=== PATIENT | male | born 1960 | race Caucasian/White ===

== ENCOUNTER 2018-10-07 10:39 | Outpatient (CLI) | payer MEDICAID, SELFPAY ==
[2018-10-07 11:34] LABS: HCT 43.2 % (40.0-50.0); HGB 14.3 g/dL (13.5-17.5); Mean Corp. HGB Concentration 33.1 g/dL (32.0-36.0); Mean Corpuscular Hemoglobin 30.8 pg (27.0-33.0); Mean Corpuscular Volume 92.9 fL (80-95); Mean Platelet Volume 9.2 fL (8.0-11.0); Platelet Count 208 x1000/uL (130-400); RBC 4.65 m/cumm (4.50-6.00); RBC Distribution Width 14.1 % (11.8-14.1); White Blood Cell Count 7.03 k/cumm (4.4-10.8)
[2018-10-07 12:30] LABS: ALT 54 U/L (12-78); AST 28 U/L (15-37); Albumin 3.7 g/dL (3.4-5.0); Alkaline Phosphatase 72 U/L (46-116); Anion Gap 11.3 mmol/L (3-11); BUN 12 mg/dL (7-18); Bilirubin, Total 0.4 mg/dL (0.2-1.0); CO2 24.7 mmol/L (21.0-32.0); CREATININE 0.95 mg/dL (0.70-1.30); Calcium 8.2 mg/dL (8.5-10.1); Chloride 107 mmol/L (98-107); Glucose 107 mg/dL (70-100); Sodium 143 mmol/L (136-145); Total Protein 6.8 g/dL (6.4-8.2); Vitamin B12 217 pg/mL (193-986)
== END 2018-10-07 10:59 ==
PROVIDERS: PCP Family Medicine; Visit Provider Family Medicine
DX: C18.9 Malignant neoplasm of colon, unspecified (principal); I10 Essential (primary) hypertension
CPT/HCPCS: 36415; 80053; 85027; 82607

== ENCOUNTER 2018-10-28 08:03 | Day surgery (SDC) | payer MEDICAID, SELFPAY ==
[2018-10-28 08:42] VITALS: BP 144/83; PULSE 98; RESP 20; TEMP 37; O2SAT 94
[2018-10-28] MEDS: Lactated Ringers 1,000 ML 80 ML IV (08:47)
--- NOTE | 2018-10-28 09:14 | W.PM.DSUDISC ---
Discharge Plan Disposition Patient Disposition: HOME Condition: Good Discharge Details Reason For Visit: Colonoscopy Attending Provider: Mishel Mayorga Primary Care Provider: Jeovany Logan Home Meds and New Rx's Prescriptions: Continued cetirizine 10 mg capsule 10 mg PO DAILY RF: 0 amlodipine 10 MG tablet 10 mg PO DAILY RF: 0 lisinopril 40 MG tablet 40 mg PO DAILY RF: 0 Eliquis 5 MG tablet 5 mg PO BID Qty: 60 RF: 0 triamcinolone acetonide 15 GM cream 1 applic Topical PRN Qty: 1 RF: 3 hydralazine 10 mg tablet 30 mg PO TID Qty: 3 RF: 0 Discharge Instructions Additional Instructions: Findings: Three small polyps were removed. My office will contact you with biopsy results. Follow up: Plan for colonoscopy in 2 years. Do not Eliquis for two more days. Please call if you develop: fevers >101.5 Nausea or Vomiting Abdominal pain that is not transient DAY SURGERY UNIT POST COLONOSCOPY INSTRUCTIONS 1. Because there will be medication in your system for the next 24 hours, you may feel a little sleepy. Your coordination will be affected. Therefore: a. Do not drive or operate dangerous equipment for 24 hours. b. Do not drink alcohol beverages for 24 hours (not even beer). c. Plan to go home and rest for the day. 2. Generally there are no restrictions on your activity after a day or so has gone by, but you may feel a bit fatigued for a few days. 3 After you arrive home you may have a light meal and return to a normal diet as you can tolerate it without feeling sick to your stomach. 4. After surgery, you may feel pain or discomfort. This should be only transient, but if it persists please contact your doctor. 5. If there are any questions regarding the findings of your procedure, please feel free to contact your doctor. 6. If you are unable to contact your doctor with a problem, contact the hospital at [phone]. 7. Continue all your regular medications unless directed otherwise. I understand the above instructions and have no questions. Signature of Patient or Responsible Adult Escort Date/Time Name of Responsible Adult Escort Signature of Nurse Date/Time Activity:: Activity as Tolerated Diet:: As Tolerated Discharge Orders Discharge Orders: Discharge Order (Routine); Ordered 10/28/18 Ordered By: Mishel Mayorga DS: Diagnosis Discharge Diagnosis (1) Colon polyps: Status: Acute
--- NOTE | 2018-10-28 09:44 | BOWEL_PTH ---
PATIENT: Marcin House LOC: [facility] U#:[id number] AGE/SX: 57/M ROOM: RE10/28/[address]: Mishel Mayorga MD : 1960 BED: DIS: 10/28/2018 SPEC #: [id number] RECD: 10/28/18 12:45 STATUS: SU REQ #: [id number] R[place]: 10/28/18 09:[address]: Mishel Mayorga DEPT: Surgical Specimen RECD BY: Maxine Gannon ENTERED: 10/28/18 12:46 SP TYPE: Bowel OTHR DR: Jeovany Logan Tissues: 1 - BIOPSY BOWEL 2 - BIOPSY BOWEL Procedures: GROSS AND MICRO LEVEL 4 Comments: [id number]
[2018-10-28 10:40] VITALS: BP 141/74; PULSE 86; RESP 18; TEMP 36.4; O2SAT 95
--- NOTE | 2018-10-28 11:47 | COLE_ITS ---
DATE OF PROCEDURE: October 28, 2018 PREOPERATIVE DIAGNOSIS: History of colon polyps. POSTOPERATIVE DIAGNOSIS: Colon polyps. PROCEDURE: Colonoscopy with polypectomy and fulguration. SURGEON: Mishel Mayorga M.D. ANESTHESIA: Monitored Anesthesia Care INDICATIONS: This is a 57-year-old man whose colonoscopy last year showed several polyps, including a descending colon polyp with dysplasia. He presents for close follow-up. PROCEDURE: He was placed in the left Elena position. Digital rectal examination revealed no abnormal ities. The scope was advanced to the cecum without difficulty. The ileocecal valve and appendiceal orifice were clearly identified. His prep was excellent. The scope was slowly withdrawn with an dread roximately 1 cm polyp identified in the ascending colon. This was removed with snare polypectomy usi ng cautery and retrieved for pathology. In the transverse colon there was a diminutive polyp that wa s simply cauterized. In the descending colon there was a < 1 cm polyp that was removed with snare po lypectomy with cautery and retrieved for pathology. The patient was also noted to have scattered sig moid diverticulosis. The rectum was normal, including on retroflex view. He tolerated the procedure well and was stable to recovery. He will need a follow-up screening again in two years. cc: Jeovany Logan M.D.
== END 2018-10-28 11:15 | disposition home or self-care (01) ==
PROVIDERS: PCP Family Medicine; Visit Provider Surgery
PROC: 0DJD8ZZ Inspection of Lower Intestinal Tract, Via Natural or Artificial Opening Endoscopic (ICD-10-PCS; CPT 45378; principal; 2018-10-28 09:30)
DX: Z12.11 Encounter for screening for malignant neoplasm of colon (principal); D12.2 Benign neoplasm of ascending colon; K63.5 Polyp of colon; K57.30 Diverticulosis of large intestine without perforation or abscess without bleeding; Z85.038 Personal history of other malignant neoplasm of large intestine; I10 Essential (primary) hypertension; G47.33 Obstructive sleep apnea (adult) (pediatric)
CPT/HCPCS: 45385; 45384; 88305; J2250; J3010

== ENCOUNTER 2019-03-24 20:23 | Inpatient (IN) | payer MEDICAID, SELFPAY ==
[2019-03-24 20:26] VITALS: BP 185/69; PULSE 128; RESP 18; TEMP 39.7; O2SAT 95
[2019-03-24] MEDS: Normal Saline 500 ML IV (20:43)
[2019-03-24 20:57] VITALS: TEMP 39.7
[2019-03-24] MEDS: ACETAMINOPHEN 1,000 MG/100 ML BTL 400 MG IVPB (20:57)
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
[2019-03-24 21:35] LABS: Abs Immature Grans 0.06 k/cumm (0.0-0.09); Absolute Basophil Count 0.01 k/cumm (0.0-0.2); Absolute Eosinophil Count 0.01 k/cumm (0.0-0.7); Absolute Monocyte Count 0.09 k/cumm (0.11-0.7); Absolute Neutrophil Count 8.95 k/cumm (1.2-6.7); Basophils % 0.1; Eosinophils % 0.1; HGB 14.2 g/dL (13.5-17.5); Immature Grans % 0.6 %; Lymphocytes % 7.1; Mean Corpuscular Hemoglobin 30.1 pg (27.0-33.0); Mean Corpuscular Volume 91.1 fL (80-95); Mean Platelet Volume 8.3 fL (8.0-11.0); Monocytes % 0.9; Neutrophils % 91.2; Platelet Count 232 x1000/uL (130-400); RBC 4.72 m/cumm (4.50-6.00); RBC Distribution Width 13.9 % (11.8-14.1); White Blood Cell Count 9.82 k/cumm (4.4-10.8)
--- NOTE | 2019-03-24 21:56 | DI.RAD_ITS ---
EXAM: XR CHEST 2V PA LATERAL INDICATION: fever 105, r/o pneumonia. COMPARISON: CHEST 2 VIEWS PA,LAT from 11/04/2016 TECHNIQUE: 2D digital imaging was performed. FINDINGS: Heart size is within normal limits. The pulmonary vasculature is unremarkable. No focal consolidati ng infiltrates are present. No effusions or pneumothoraces are present. Degenerative changes are se en in the spine. The lungs appear hyperinflated with flattened diaphragms suggesting underlying COPD . IMPRESSION: No acute pulmonary process.
--- NOTE | 2019-03-24 21:56 | DI.RAD_ITS ---
EXAM: XR FOOT RT COMPLETE INDICATION: stepped on glass, febrile, r/o osteo and FB. COMPARISON: No exams were available for comparison TECHNIQUE: 2D digital imaging was performed. FINDINGS: An overlying sock or shoe is seen on the foot and causes artifact limiting the examination. No defin ite radiopaque foreign bodies are seen in the soft tissues. There is generalized soft tissue swellin g of the foot. No acute fracture or dislocation is seen. No radiographic evidence to suggest osteom yelitis are present. There are spurs seen on the calcaneus posteriorly. Degenerative changes are se en in the foot. There does appear to be a mild subluxation at the proximal interphalangeal joint of the right 5th toe. IMPRESSION: 1. Overlying sock or shoe limits evaluation of the soft tissues. 2. No definite radiopaque foreign bodies seen. 3. No radiographic findings to suggest acute osteomyelitis are present. If there is continued concer n, an MRI should be considered for further evaluation. 4. Generalized soft tissue swelling of the foot.
[2019-03-24 21:58] LABS: ALT 51 U/L (16-63); AST 30 U/L (15-37); Albumin 3.6 g/dL (3.4-5.0); Alkaline Phosphatase 64 U/L (46-116); Anion Gap 11.8 mmol/L (3-11); BUN 13 mg/dL (7-18); CO2 25.2 mmol/L (21.0-32.0); CREATININE 1.17 mg/dL (0.70-1.30); Calcium 8.9 mg/dL (8.5-10.1); Chloride 106 mmol/L (98-107); Glucose 99 mg/dL (74-106); NT-proBNP 99 pg/mL (<300); Potassium 3.1 mmol/L (3.5-5.1); Sodium 143 mmol/L (136-145); Total Protein 6.9 g/dL (6.4-8.2)
[2019-03-24 22:01] LABS: Lactate 3.1 mmol/L (0.6-1.4)
[2019-03-24] MEDS: PIPERACILLIN/TAZO 4.5 GM in Normal Saline 100 ML IVPB (22:01)
[2019-03-24] MEDS: VANCOMYCIN 2,000 MG in Normal Saline 500 ML 333.3333 MG IVPB (22:01)
[2019-03-24 22:03] LABS: INR 1.1 (0.9-1.1); PTT Activated 19.4 sec (21.0-31.4); Prothrombin Time 10.6 sec (9.3-11.0)
--- NOTE | 2019-03-24 22:03 | DI.VRAD_ITS ---
PROCEDURE INFORMATION: Exam: XR Chest, 2 Views Exam date and time: 03/24/2019 9:54 PM Age: 58 years old Clinical indication: Fever; Additional info: Fever 105, R/O pneumonia TECHNIQUE: Imaging protocol: XR of the chest Views: 2 views. COMPARISON: CR CHEST 2 VIEWS PA,LAT 11/04/2016 11:45 AM FINDINGS: Lungs: Retrocardiac airspace remains minimally prominent. No consolidation. Pleural space: Unremarkable. No pleural effusion. No pneumothorax. Heart/Mediastinum: Unremarkable. No cardiomegaly. Diaphragm: Flattening of hemidiaphragms. Bones/joints: Degenerative changes. IMPRESSION: 1. No acute findings. 2. Findings suggest the presence of COPD. Dictated and Authenticated by: Axel Sargent MD. Ordering:KIERAN Eagle MD
[2019-03-24 22:06] VITALS: BP 134/47; PULSE 120; RESP 18; TEMP 39.3; O2SAT 90
--- NOTE | 2019-03-24 22:07 | DI.VRAD_ITS ---
PROCEDURE INFORMATION: Exam: XR Right Foot Complete Exam date and time: 03/24/2019 9:55 PM Age: 58 years old Clinical indication: Injury or trauma; Injury history: Stepped on glass, fever 105, R/O osteo and fb; Initial encounter; Laceration; Foot; Right; Foreign body involvement not specified; Additional info: Fever 105, R/O pneumonia TECHNIQUE: Imaging protocol: XR Right foot. Views: 3 or more views. COMPARISON: No relevant prior studies available. FINDINGS: Bones/joints: No fracture. Minimal lateral subluxation of the 3rd distal and 5th middle phalanges. Degenerative changes of the 1st metatarsophalangeal and interphalangeal joints. Soft tissues: No radiopaque or radiolucent foreign body demonstrated. Overlying dressing or slipper limits evaluation of soft tissues. IMPRESSION: 1. No fracture. 2. No definite radiographic findings for the presence of osteomyelitis. Further evaluation could be performed with bone scan and/or MRI. 3. Minimal subluxations as described. 4. Degenerative changes. 5. Limited evaluation for foreign body. Consider re-examination after removal of dressing or slipper. Dictated and Authenticated by: Axel Sargent MD. Ordering:KIERAN Eagle MD
[2019-03-24 22:11] LABS: Creatine Kinase 246 U/L (39-308)
[2019-03-24] MEDS: Normal Saline 1,000 ML 1000 ML IV (22:29)
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
[2019-03-24 22:41] LABS: Magnesium 1.5 mg/dL (1.8-2.4)
[2019-03-24] MEDS: POTASSIUM CHLORIDE 20 MEQ/100 ML BAG 50 MEQ IVPB (22:53)
--- NOTE | 2019-03-24 22:54 | DI.RAD_ITS ---
EXAM: XR FOOT RT COMPLETE INDICATION: r/o foreign body. COMPARISON: XR FOOT RT COMPLETE from 03/24/2019 TECHNIQUE: 2D digital imaging was performed. FINDINGS: The examination was repeated following removal of the patient's sock or slipper. No radiopaque forei gn bodies are seen in the soft tissues. There is generalized soft tissue swelling again noted of the foot. No radiographic findings to suggest acute osteomyelitis are present. IMPRESSION: No foreign body is seen in the soft tissue.
[2019-03-24] MEDS: Potassium Chloride 20 MEQ TABCR 40 MEQ PO (22:55)
--- NOTE | 2019-03-24 23:02 | DI.VRAD_ITS ---
PROCEDURE INFORMATION: Exam: XR Right Foot Complete Exam date and time: 03/24/2019 10:29 PM Age: 58 years old Clinical indication: Injury or trauma; Injury history: Stepped on glass a few weeks ago; Initial encounter; Laceration; Foot; Right; Foreign body involvement not specified; Additional info: Fever 105, R/O pneumonia TECHNIQUE: Imaging protocol: XR Right foot. Views: 3 or more views. COMPARISON: CR XR FOOT RT COMPLETE 03/24/2019 9:48 PM FINDINGS: Bones/joints: Unchanged. Soft tissues: Study repeated after removing slipper or dressing. There is improved demonstration of soft tissues. Soft tissue swelling. No radiopaque or radiolucent foreign body. IMPRESSION: 1. Soft tissue swelling. 2. No radiopaque or radiolucent foreign body. Dictated and Authenticated by: Axel Sargent MD. Ordering:KIERAN Eagle MD
[2019-03-24 23:43] VITALS: BP 159/71; PULSE 111; RESP 20; TEMP 38.4; O2SAT 94
[2019-03-25] VITALS (10 sets, daily range): BP systolic 90–132; BP diastolic 52–68; PULSE 80–98; RESP 17–18; TEMP 37–38.7; O2SAT 95–99
[2019-03-25 00:18] LABS: Clarity Clear (Clear)
[2019-03-25 00:19] LABS: Bilirubin Negative (Negative); Blood Negative (Negative); Glucose Negative (Negative); Ketones Negative (Negative); Leukocyte Esterase Negative (Negative); Nitrite Negative (Negative); Urobilinogen 0.2 EU/dL (Up TO 0.2); pH 5.5 (5-8)
[2019-03-25] MEDS: POTASSIUM CHLORIDE/0.9% NACL 1,000 ML 100 MEQ IV ×3 (00:34→21:57)
[2019-03-25] MEDS: MAGNESIUM SULFATE 2 GM/50 ML BAG IVPB (00:49)
[2019-03-25] MEDS: Normal Saline Flush 10 ML SYR IVP ×3 (00:50→21:19)
[2019-03-25] MEDS: Acetaminophen 500 MG TAB 1000 MG PO ×4 (03:24→20:17)
[2019-03-25] MEDS: Ondansetron 4 MG/2 ML VIAL IVP (03:51)
[2019-03-25 07:33] LABS: HCT 39.7 % (40.0-50.0); HGB 12.9 g/dL (13.5-17.5); Mean Corp. HGB Concentration 32.5 g/dL (32.0-36.0); Mean Corpuscular Hemoglobin 29.9 pg (27.0-33.0); Mean Corpuscular Volume 92.1 fL (80-95); Mean Platelet Volume 8.9 fL (8.0-11.0); Platelet Count 238 x1000/uL (130-400); RBC 4.31 m/cumm (4.50-6.00); RBC Distribution Width 14.3 % (11.8-14.1)
[2019-03-25 07:38] LABS: Anion Gap 11.4 mmol/L (3-11); BUN 16 mg/dL (7-18); CO2 23.6 mmol/L (21.0-32.0); CREATININE 1.47 mg/dL (0.70-1.30); Calcium 8.3 mg/dL (8.5-10.1); Chloride 107 mmol/L (98-107); Estimated GFR 49.03 (mL/min/1.73m2); Glucose 143 mg/dL (74-106); Sodium 142 mmol/L (136-145)
--- NOTE | 2019-03-25 08:06 | PHARADMIT ---
Addendum entered by Hattie Balderas 04/03/19 17:52: day 07/26 for abx Addendum entered by Hattie Balderas 04/03/19 17:48: Pharmacy Note Subjective day07/28 abx... from first negative BC Objective BP-168/86 other VS okay no labs Assessment no med changes PCN G and clinda continue Plan plan is to swing pt tomorrow Addendum entered by Radha Peña 04/01/19 13:23: Pharmacy Note Subjective pt with infection and lymphedema Objective BC (03/30)no growth, CRCL 85ML/MIN, mariam wraps for lymphedema Assessment Md asked for nursing to get an accurate home med list due to decrepencies in pt recall and [email or web address] records Plan Continue Pen G & Clindamycin for full 10 days. notes to watch renal function Addendum entered by Willard Littlejohn III 03/31/19 16:10: Pharmacy Note Subjective debrided foot wound today. Continue Pen G & Clindamycin for full 110 days.. Objective BP-152/74 Labs-WNL BG-119 Procal-1.9 CRP- 6.40 Assessment Apixaban continues Plan notes to watch renal function. Addendum entered by Willard Littlejohn III 03/30/19 15:20: Pharmacy Note Subjective MD notes that sepsis has resolved but the patient will require the complete 10 days course of IV ABX (PCN & Clindamycin). Lymphadema requiring leg wraps. Objective BP-172/95 Lytes,H&H,WBC, Plts-OK SCr-0.91,CRP-5.16 Assessment Norvasc dc'd (?adding to leg edema) Dyazide & Corg added to Lisinopril. Plan Follow SCr, CRP and Procalcitonin Original Note: Admission Pharmacy Clinical Review SEPSIS Code Status Full Code Current Weight Wgt-152.4 kg Renally Cleared and Narrow Therapeutic Index Meds CrCl~55 mL/min Meds-OK QTc Value / Action Taken NONE CURRENT BP Control, Fever BP-90/52 Electrolytes reviewed Na-142 K+4.0 Mag-1.5 DVT Prophylaxis Eliquis Opiate Usage / Scheduled Bowel Regimen Ordered No No Plt/SCr for Heparin / Enoxaparin Plts- 238 SCr-1.417 INR for Warfarin inr-1.1 H/H stable, WBC/Bands H&H- 12.9/39.7 WBC-25.00 Antibiotic appropriateness Zosyn & Vancomycin Cultures and Sensitivities Flu-neg, Blood_ Gram(+)Cocci Urine-Pending Surgical ABX d/c within 24 hr na DM control / Insulin Dosing BG-143 Heart Failure (Check EF%) (MARIAM's, B-Block, Diuretics) None (not ordered yet) IV to PO Switch No Home Meds Reviewed Yes Home Meds Not Ordered Norvasc, Hydralazine, Lisinopril, Citirizine, Imodium, Miralax, TAC crm Comments
[2019-03-25] MEDS: Apixaban 5 MG TAB PO ×2 (09:19→20:15)
[2019-03-25] MEDS: Lactated Ringers 1,000 ML 1000 ML IV (09:30)
[2019-03-25] MEDS: Omnipaque 350 MG/ML 100 ML BTL IJ (10:08)
--- NOTE | 2019-03-25 10:15 | DI.CT_ITS ---
EXAM: CT LOWER EXTREMITY RT W CLINICAL HISTORY: bacteremia, pain, necrotizing fasciitis? TECHNIQUE: CT scan of the right lower extremity was performed following the uneventful administratio n of 100 mL of Omnipaque 350 intravenously. COMPARISON: XR FOOT RT COMPLETE from 03/24/2019 FINDINGS: No acute fracture or dislocation is seen. No findings to suggest acute osteomyelitis are present. T here are degenerative changes seen in the foot. Calcaneal spurs are present. There is diffuse subcutaneous edema throughout the leg and foot. No focal fluid collection is seen t o suggest an abscess. There is no air seen within the soft tissues. There is skin thickening diffu sely throughout the lower leg and foot. Arterial structures are grossly unremarkable. There is a small knee joint effusion. IMPRESSION: 1. Findings most suspicious for diffuse cellulitis. No evidence of abscess. No free air.
--- NOTE | 2019-03-25 10:43 | W.PM.PROGNOT ---
Date of Service Date of service: 03/25/19 Time of Service: 08:44 Assessment and Plan Assessment and plan (1) Fever: Status: Acute Assessment and plan: Associated with gram-positive bacteremia, consistent with early sepsis with low normal blood pressures, elevated white count, elevated lactate, and renal insufficiency. Despite his vital signs and lab findings, patient is clearly clinically improved. Staph and strep still major concerns so continue on broad-spectrum antibiotics until we get a full culture. The foot ulcer seems to be the most likely source, with possible retained glass. However, there does not appear to be a local cellulitis. Given this and the severity of his overall illness, concerned for necrotizing fasciitis and have ordered a CT lower extremity. I ordered another liter of LR to hydrate prior to exam. Endocarditis must be considered, but the murmur was barely audible to my exam. Urinalysis, chest x-ray, and flu swabs not consistent with sources of infection. (2) Hypertension: Status: Chronic Assessment and plan: Holding outpatient antihypertensives while blood pressures low. (3) Atrial fibrillation: Status: None Assessment and plan: Current exam consistent with normal sinus. Rate is okay. He is on apixaban, which will also cover DVT prophylaxis. (4) Lymphedema: Status: None Assessment and plan: His lower extremity lymphedema is not significantly different than his chronic picture. (5) disposition: Status: Acute Assessment and plan: Disposition pending response to therapy and cultures for bacteremia. I still think he stable for the floor at this point. If necrotizing fasciitis found, he may need transfer for definitive surgical treatment. Subjective Subjective Patient reports: denies nausea and vomiting Interval history since last seen: 24 hr: Called re: 06/16 blood cultures positive for GPC Marcin states he feels much better today than yesterday. He has a little appetite and is eating and drinking. Urine dark but no pain. He feels hot and chilled at times. He no longer has that diffuse pain in his pelvis down both legs, but some pain in the right leg. no chest pain or palpitations. Exam Narrative Exam Narrative: GEN: Alert and oriented, sitting up in chair, nontoxic speaking comfortably in full sentences HEENT conjunctive are clear, moist mucous membranes, neck supple with no masses or lymphadenopathy; lungs clear to auscultation bilaterally with normal effort heart tachy and regular, 1/6 sys murmur LLSB; abdomen soft and NT, active bowel sounds; extremities 3+ lymphedema (chronic), 2 cm ulcer/wound overlying right MTP 1, very slightly tender but no fluctuance or discharge or even significant surrounding redness. He is tender to palpation of the right calf, but not up the upper leg or in the left calf. He is not tender other than right over the wound in the right foot. Objective Objective Clinical Data: Abnormal lab results 03/24/19 03/24/19 03/24/19 Range/Units 21:15 21:19 21:19 WBC (4.4-10.8) k/cumm RBC (4.50-6.00) m/cumm Hgb (13.5-17.5) g/dL Hct (40.0-50.0) % RDW (11.8-14.1) % Absolute Neutrophils (1.2-6.7) k/cumm Absolute Lymphocytes (1.2-3.4) k/cumm Absolute Monocytes (0.11-0.7) k/cumm APTT (21.0-31.4) sec Potassium 3.1 L (3.5-5.1) mmol/L Anion Gap 11.8 H (3-11) mmol/L Creatinine (0.70-1.30) mg/dL Glucose (74-106) mg/dL Lactate 3.1 H* (0.6-1.4) mmol/L Calcium (8.5-10.1) mg/dL Magnesium 1.5 L (1.8-2.4) mg/dL 03/24/19 03/24/19 03/25/19 Range/Units 21:19 21:19 06:55 WBC (4.4-10.8) k/cumm RBC (4.50-6.00) m/cumm Hgb (13.5-17.5) g/dL Hct (40.0-50.0) % RDW (11.8-14.1) % Absolute Neutrophils 8.95 H (1.2-6.7) k/cumm Absolute Lymphocytes 0.70 L (1.2-3.4) k/cumm Absolute Monocytes 0.09 L (0.11-0.7) k/cumm APTT 19.4 L (21.0-31.4) sec Potassium (3.5-5.1) mmol/L Anion Gap 11.4 H (3-11) mmol/L Creatinine 1.47 H (0.70-1.30) mg/dL Glucose 143 H (74-106) mg/dL Lactate (0.6-1.4) mmol/L Calcium 8.3 L (8.5-10.1) mg/dL Magnesium (1.8-2.4) mg/dL 03/25/19 Range/Units 06:55 WBC 25.00 H D (4.4-10.8) k/cumm RBC 4.31 L (4.50-6.00) m/cumm Hgb 12.9 L (13.5-17.5) g/dL Hct 39.7 L (40.0-50.0) % RDW 14.3 H (11.8-14.1) % Absolute Neutrophils (1.2-6.7) k/cumm Absolute Lymphocytes (1.2-3.4) k/cumm Absolute Monocytes (0.11-0.7) k/cumm APTT (21.0-31.4) sec Potassium (3.5-5.1) mmol/L Anion Gap (3-11) mmol/L Creatinine (0.70-1.30) mg/dL Glucose (74-106) mg/dL Lactate (0.6-1.4) mmol/L Calcium (8.5-10.1) mg/dL Magnesium (1.8-2.4) mg/dL Vital Signs Temperature 37.2 C 03/25/19 09:20 Temperature Source Tympanic 03/25/19 08:03 Pulse 92 H 03/25/19 08:03 Respiratory Rate 18 03/25/19 08:03 Respiratory Effort Non-Labored 03/25/19 03:55 Respiratory Depth Normal 03/25/19 03:55 Respiratory Pattern Normal 03/25/19 03:55 Blood Pressure 90/52 L 03/25/19 08:03 Pulse Oximetry 96 03/25/19 08:03 Oxygen Delivery Method Room Air 03/25/19 08:03 Oxygen Flow Rate 0 03/25/19 08:03 Pain Level 4 03/25/19 09:20 Intake & Output 01/01/0103/24/19 03/25/19 11:59 23:59 11:59 Intake Total 600 / 600 1850 / 1850 Output Total 300 / 300 500 / 500 Balance 300 / 300 1350 / 1350 Weight 152.4 kg Intake: IV 600 / 600 1850 / 1850 Output: Urine 300 / 300 500 / 500 Other: Urine Color Yellow Light Christiana Urine Appearance Clear Clear Urine Odor Normal Voiding Methods Urinal Urinal Laboratory Results WBC 25.00 k/cumm (4.4-10.8) H D 03/25/19 06:55 RBC 4.31 m/cumm (4.50-6.00) L 03/25/19 06:55 Hgb 12.9 g/dL (13.5-17.5) L 03/25/19 06:55 Hct 39.7 % (40.0-50.0) L 03/25/19 06:55 MCV 92.1 fL (80-95) 03/25/19 06:55 MCH 29.9 pg (27.0-33.0) 03/25/19 06:55 MCHC 32.5 g/dL (32.0-36.0) 03/25/19 06:55 RDW 14.3 % (11.8-14.1) H 03/25/19 06:55 Plt Count 238 x1000/uL (130-400) 03/25/19 06:55 MPV 8.9 fL (8.0-11.0) 03/25/19 06:55 Immature Gran % 0.6 % 03/24/19 21:19 Neutrophils % 91.2 03/24/19 21:19 Lymphocytes % 7.1 03/24/19 21:19 Monocytes % 0.9 03/24/19 21:19 Eosinophils % 0.1 03/24/19 21:19 Basophils % 0.1 03/24/19 21:19 Absolute Neutrophils 8.95 k/cumm (1.2-6.7) H 03/24/19 21:19 Absolute Lymphocytes 0.70 k/cumm (1.2-3.4) L 03/24/19 21:19 Absolute Monocytes 0.09 k/cumm (0.11-0.7) L 03/24/19 21:19 Absolute Eosinophils 0.01 k/cumm (0.0-0.7) 03/24/19 21:19 Absolute Basophils 0.01 k/cumm (0.0-0.2) 03/24/19 21:19 PT 10.6 sec (9.3-11.0) 03/24/19 21:19 INR 1.1 (0.9-1.1) 03/24/19 21:19 APTT 19.4 sec (21.0-31.4) L 03/24/19 21:19 Sodium 142 mmol/L (136-145) 03/25/19 06:55 Potassium 4.0 mmol/L (3.5-5.1) D 03/25/19 06:55 Chloride 107 mmol/L (98-107) 03/25/19 06:55 Carbon Dioxide 23.6 mmol/L (21.0-32.0) 03/25/19 06:55 Anion Gap 11.4 mmol/L (3-11) H 03/25/19 06:55 BUN 16 mg/dL (7-18) 03/25/19 06:55 Creatinine 1.47 mg/dL (0.70-1.30) H 03/25/19 06:55 Estimated GFR/1.73 m2 49.03 (mL/min/1.73m2) 03/25/19 06:55 Glucose 143 mg/dL (74-106) H 03/25/19 06:55 Lactate 3.1 mmol/L (0.6-1.4) H* 03/24/19 21:19 Calcium 8.3 mg/dL (8.5-10.1) L 03/25/19 06:55 Magnesium 1.5 mg/dL (1.8-2.4) L 03/24/19 21:15 Total Bilirubin 1.0 mg/dL (0.2-1.0) 03/24/19 21:19 AST 30 U/L (15-37) 03/24/19 21:19 ALT 51 U/L (16-63) 03/24/19 21:19 Alkaline Phosphatase 64 U/L (46-116) 03/24/19 21:19 Creatine Kinase 246 U/L (39-308) 03/24/19 21:19 NT-Pro-B Natriuret Pep 99 pg/mL (<300) 03/24/19 21:19 Total Protein 6.9 g/dL (6.4-8.2) 03/24/19 21: Albumin 3.6 g/dL (3.4-5.0) 03/24/19 21:19 Urine Color Yellow (Yellow) 03/24/19 23:25 Urine Clarity Clear (Clear) 03/24/19 23:25 Urine pH 5.5 (5-8) 03/24/19 23:25 Ur Specific [place] 1.010 (1.005-1.025) 03/24/19 23:25 Urine Protein Negative mg/dL (Negative) 03/24/19 23:25 Urine Ketones Negative mg/dL (Negative) 03/24/19 23:25 Urine Blood Negative (Negative) 03/24/19 23: Urine Nitrite Negative (Negative) 03/24/19 23:25 Urine Bilirubin Negative (Negative) 03/24/19 23: Urine Urobilinogen 0.2 EU/dL (Up TO 0.2) 03/24/19 23:25 Ur Leukocyte Esterase Negative (Negative) 03/24/19 23:25 Urine Glucose Negative mg/dL (Negative) 03/24/19 23:25 Specimen Type Cancelled 03/24/19 22:07 Vancomycin Trough Cancelled 03/25/19 06:55 Influenza Type A RNA Cancelled 03/24/19 22:07 Influenza Type B RNA Cancelled 03/24/19 22:07 RSV RNA Qual (PCR) Cancelled 03/24/19 22:07
[2019-03-25] MEDS: PIPERACILLIN/TAZO 4.5 GM in Normal Saline 100 ML IVPB ×3 (10:59→21:19)
--- NOTE | 2019-03-25 11:12 | DI.VRAD_ITS ---
PROCEDURE INFORMATION: Exam: CT Right Lower Extremity With Contrast Exam date and time: 03/25/2019 9:21 AM Age: 58 years old Clinical indication: Other: Bactermia, pain, necrotizing fascitis? ; Patient HX: Wound on bottom on plantar surface, lateral side of right foot. Stepped on glass. Tender to palpate calf TECHNIQUE: Imaging protocol: CT of the Right lower extremity with intravenous contrast was performed. Radiation optimization: All CT scans at this facility use at least one of these dose optimization techniques: automated exposure control; mA and/or kV adjustment per patient size (includes targeted exams where dose is matched to clinical indication); or iterative reconstruction. Contrast material: OMNIPAQUE 350; Contrast volume: 100 ml; Contrast route: IV; COMPARISON: CR XR FOOT RT COMPLETE 03/24/2019 10:45 PM FINDINGS: Bones/joints: No acute fracture. No dislocation. Degenerative changes of the hindfoot. Small posterior and plantar calcaneal spurs. Soft tissues: There is diffuse subcutaneous edema and fluid from the leg through forefoot. No soft tissue air. No definite fluid collection. No radiodense foreign body. There is no significant muscle edema or deep fascial fluid. There is focal subcutaneous and skin thickening at the plantar aspect of the forefoot laterally.Small suprapatellar joint effusion. Vasculature: The visualized arteries are patent. IMPRESSION: Diffuse subcutaneous edema, fluid and skin thickening from the leg through forefoot which is concerning for clinical cellulitis. No soft tissue air. Dictated and Authenticated by: Anna Lovett MD. Ordering:MINDY Thayer MD
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
[2019-03-26] VITALS (7 sets, daily range): BP systolic 102–155; BP diastolic 50–72; PULSE 78–90; RESP 16–20; TEMP 37–38.1; O2SAT 94–96
[2019-03-26] MEDS: Acetaminophen 500 MG TAB 1000 MG PO ×3 (02:23→16:19)
[2019-03-26] MEDS: PIPERACILLIN/TAZO 4.5 GM in Normal Saline 100 ML IVPB (03:58)
[2019-03-26 07:14] LABS: HCT 36.7 % (40.0-50.0); HGB 11.8 g/dL (13.5-17.5); Mean Corp. HGB Concentration 32.2 g/dL (32.0-36.0); Mean Corpuscular Hemoglobin 30.1 pg (27.0-33.0); Mean Corpuscular Volume 93.6 fL (80-95); Mean Platelet Volume 9.1 fL (8.0-11.0); Platelet Count 193 x1000/uL (130-400); RBC 3.92 m/cumm (4.50-6.00); RBC Distribution Width 14.9 % (11.8-14.1); White Blood Cell Count 17.07 k/cumm (4.4-10.8)
[2019-03-26 07:22] LABS: Anion Gap 9.6 mmol/L (3-11); BUN 11 mg/dL (7-18); CO2 24.4 mmol/L (21.0-32.0); CREATININE 1.08 mg/dL (0.70-1.30); Calcium 7.9 mg/dL (8.5-10.1); Chloride 108 mmol/L (98-107); Glucose 124 mg/dL (74-106); Magnesium 1.8 mg/dL (1.8-2.4); Potassium 3.8 mmol/L (3.5-5.1); Sodium 142 mmol/L (136-145)
[2019-03-26 07:44] LABS: Absolute Lymphocyte Count 1.19 k/cumm (1.2-3.4); Absolute Monocyte Count 0.17 k/cumm (0.11-0.7); Absolute Neutrophil Count 15.36 k/cumm (1.2-6.7); Atypical Lymphocytes % 2; Diff Comment Manual Differential
[2019-03-26 07:45] LABS: RBC Morphology Normal
--- NOTE | 2019-03-26 08:25 | PDOC.CMPRO ---
Care Management Progress Note S/O: Marcin was sitting up in his chair when CM met with him. He was pleasant in interaction and reported feeling much improved. He shared positive feedback about his care and stay thus far. He is interested in completing a Financial Asst Packet, though reports no previous co-pays with his [facility] coverage. CM continues to follow. A: 58 year old male admitted to [facility] 03/24/19 for Sepsis P: Marcin will return home when ready per MD. He will be evaluated for further needs prior to discharge. CM will continue to follow and support discharge planning considerations.
[2019-03-26] MEDS: Apixaban 5 MG TAB PO ×2 (10:02→19:52)
[2019-03-26] MEDS: POTASSIUM CHLORIDE/0.9% NACL 1,000 ML 100 MEQ IV ×2 (10:02→19:53)
[2019-03-26] MEDS: Lisinopril 20 MG TAB 40 MG PO (10:03)
[2019-03-26] MEDS: amLODIPine 10 MG TAB PO (10:03)
[2019-03-26 10:31] LABS: Vancomycin, Trough 10.3 ug/mL (10.0-20.0)
[2019-03-26] MEDS: Penicillin G POT. 3,000,000 UNITS in Normal Saline 50 ML 100 UNITS IVPB ×4 (10:38→22:08)
--- NOTE | 2019-03-26 11:23 | W.PM.PROGNOT ---
Date of Service Date of service: 03/26/19 Time of Service: 11:23 Assessment and Plan Assessment and plan (1) Sepsis due to group B Streptococcus with acute organ dysfunction: Status: Acute Assessment and plan: Culture growing GBS. I have stopped the vancomycin and Zosyn in favor of penicillin G IV at high doses. Fever curve, labs, and clinically improving. As above CT not consistent with necrotizing fasciitis, and does not demonstrate a radiolucent foreign body. I no longer hear him any murmur, so I am less concerned with endocarditis. (2) Hypertension: Status: Chronic Assessment and plan: We have been holding outpatient antihypertensives while blood pressures low. Systolic 155 this morning, outpatient meds restarted. Follow creatinine and potassium back on lisinopril. (3) Atrial fibrillation: Status: None Assessment and plan: Current exam consistent with normal sinus. Rate is okay. He is on apixaban, which will also cover DVT prophylaxis. (4) Lymphedema: Status: None Assessment and plan: His lower extremity lymphedema is not significantly different than his chronic picture. Get tubigrips. (5) Acute kidney injury: Status: Acute Assessment and plan: Present on admission related to GBS sepsis as above, prerenal due to hypovolemia. Improved with hydration. Monitor GFR after restarting MARIAM inhibitor today. (6) Diarrhea: Status: Acute Assessment and plan: This is a chronic issue. Will give Imodium as needed. I did write for a probiotic as well. He would like to get tested for pancreatic insufficiency, which we can do as an outpatient. (7) disposition: Status: Acute Assessment and plan: Stable on the medical floor. I would like to see more continued improvement over the next day at least before considering discharge on oral antibiotics Subjective Subjective Patient reports: no new complaints, feels better, tolerating a regular diet and bowel movement; denies blood in stool, nausea, vomiting and shortness of breath Interval history since last seen: 24hr: Culture reading GBS CT RLE w/contrast c/w cellulitis, not c/w necrotizing fasciitis Marcin feels better. Feels less hot. Minimal pain in leg. He would like compression on the leg like he wears at home (tubigrips). He is concerned for loose stools several times a day but this is chronic, takes immodium at home. Exam Narrative Exam Narrative: GEN: Alert and oriented, sitting up in chair, nontoxic speaking comfortably in full sentences HEENT conjunctive are clear, moist mucous membranes, no icterus; lungs: clear to auscultation bilaterally with normal effort heart: RRR,no murmur audible today; abdomen soft and NT, active bowel sounds; extremities 3+ lymphedema (chronic), 2 cm ulcer/wound overlying right MTP 1, very slightly tender but no fluctuance or discharge or even significant surrounding redness. He is mildly tender to palpation of the right calf, but not up the upper leg or in the left calf. poorly defined redness to superior calf Objective Objective Clinical Data: Abnormal lab results 03/26/19 03/26/19 Range/Units 06:20 06:20 WBC 17.07 H D (4.4-10.8) k/cumm RBC 3.92 L (4.50-6.00) m/cumm Hgb 11.8 L (13.5-17.5) g/dL Hct 36.7 L (40.0-50.0) % RDW 14.9 H (11.8-14.1) % Absolute Neutrophils 15.36 H (1.2-6.7) k/cumm Absolute Lymphocytes 1.19 L (1.2-3.4) k/cumm Chloride 108 H (98-107) mmol/L Glucose 124 H (74-106) mg/dL Calcium 7.9 L (8.5-10.1) mg/dL Vital Signs Temperature 38.1 C H 03/26/19 11:03 Temperature Source Tympanic 03/26/19 11:03 Pulse 80 03/26/19 07:50 Pulse Rhythm Regular 03/26/19 04:00 Respiratory Rate 16 03/26/19 07:50 Respiratory Effort Non-Labored 03/26/19 04:00 Respiratory Depth Normal 03/26/19 04:00 Respiratory Pattern Normal 03/26/19 04:00 Blood Pressure 102/52 L 03/26/19 11:03 Pulse Oximetry 95 03/26/19 07:50 Oxygen Delivery Method Room Air 03/26/19 07:50 Oxygen Flow Rate 0 03/26/19 07:50 Pain Level 4 03/26/19 11:03 Intake & Output 03/25/19 03/25/19 03/26/19 11:59 23:59 11:59 Intake Total 3850 / 5566.667 1716.667 / 5566.667 816.667 / 816.667 Output Total 1150 / 1150 Balance 2700 / 4416.667 1716.667 / 4416.667 816.667 / 816.667 Intake: IV 3850 / 5466.667 1616.667 / 5466.667 816.667 / 816.667 Oral 100 / 100 Output: Urine 1150 / 1150 Other: Urine Color Light Christiana Pale Yellow Yellow Urine Appearance Clear Clear Clear Urine Odor Strong None None Comment patient has been up to the toilet independantly , has reported voiding several times this shift Voiding Methods Urinal Toilet Toilet Laboratory Results WBC 17.07 k/cumm (4.4-10.8) H D 03/26/19 06:20 RBC 3.92 m/cumm (4.50-6.00) L 03/26/19 06:20 Hgb 11.8 g/dL (13.5-17.5) L 03/26/19 06:20 Hct 36.7 % (40.0-50.0) L 03/26/19 06:20 MCV 93.6 fL (80-95) 03/26/19 06:20 MCH 30.1 pg (27.0-33.0) 03/26/19 06:20 MCHC 32.2 g/dL (32.0-36.0) 03/26/19 06:20 RDW 14.9 % (11.8-14.1) H 03/26/19 06:20 Plt Count 193 x1000/uL (130-400) 03/26/19 06:20 MPV 9.1 fL (8.0-11.0) 03/26/19 06:20 Immature Gran % See Differential 03/26/19 06:20 Neutrophils % 57.0 03/26/19 06:20 Band Neutrophils % 33.0 % 03/26/19 06:20 Lymphocytes % 5.0 03/26/19 06:20 Atypical Lymphs % 2 03/26/19 06:20 Monocytes % 1.0 03/26/19 06:20 Eosinophils % 0.0 03/26/19 06:20 Basophils % 0.0 03/26/19 06:20 Metamyelocytes % 2.0 % 03/26/19 06:20 Absolute Neutrophils 15.36 k/cumm (1.2-6.7) H 03/26/19 06:20 Absolute Lymphocytes 1.19 k/cumm (1.2-3.4) L 03/26/19 06:20 Absolute Monocytes 0.17 k/cumm (0.11-0.7) 03/26/19 06:20 Absolute Eosinophils 0.00 k/cumm (0.0-0.7) 03/26/19 06:20 Absolute Basophils 0.00 k/cumm (0.0-0.2) 03/26/19 06:20 Differential Comment Manual differential 03/26/19 06:20 RBC Morphology Normal 03/26/19 06:20 PT 10.6 sec (9.3-11.0) 03/24/19 21:19 INR 1.1 (0.9-1.1) 03/24/19 21:19 APTT 19.4 sec (21.0-31.4) L 03/24/19 21:19 Sodium 142 mmol/L (136-145) 03/26/19 06:20 Potassium 3.8 mmol/L (3.5-5.1) 03/26/19 06:20 Chloride 108 mmol/L (98-107) H 03/26/19 06:20 Carbon Dioxide 24.4 mmol/L (21.0-32.0) 03/26/19 06:20 Anion Gap 9.6 mmol/L (3-11) 03/26/19 06:20 BUN 11 mg/dL (7-18) 03/26/19 06:20 Creatinine 1.08 mg/dL (0.70-1.30) 03/26/19 06:20 Estimated GFR/1.73 m2 >= 60.00 (mL/min/1.73m2) 03/26/19 06:20 Glucose 124 mg/dL (74-106) H 03/26/19 06:20 Lactate 3.1 mmol/L (0.6-1.4) H* 03/24/19 21:19 Calcium 7.9 mg/dL (8.5-10.1) L 03/26/19 06:20 Magnesium 1.8 mg/dL (1.8-2.4) 03/26/19 06:20 Total Bilirubin 1.0 mg/dL (0.2-1.0) 03/24/19 21:19 AST 30 U/L (15-37) 03/24/19 21:19 ALT 51 U/L (16-63) 03/24/19 21:19 Alkaline Phosphatase 64 U/L (46-116) 03/24/19 21: Creatine Kinase 246 U/L (39-308) 03/24/19 21:19 NT-Pro-B Natriuret Pep 99 pg/mL (<300) 03/24/19 21: Total Protein 6.9 g/dL (6.4-8.2) 03/24/19 21: Albumin 3.6 g/dL (3.4-5.0) 03/24/19 21:19 Urine Color Yellow (Yellow) 03/24/19 23:25 Urine Clarity Clear (Clear) 03/24/19 23:25 Urine pH 5.5 (5-8) 03/24/19 23:25 Ur Specific [place] 1.010 (1.005-1.025) 03/24/19 23:25 Urine Protein Negative mg/dL (Negative) 03/24/19 23:25 Urine Ketones Negative mg/dL (Negative) 03/24/19 23:25 Urine Blood Negative (Negative) 03/24/19 23:25 Urine Nitrite Negative (Negative) 03/24/19 23:25 Urine Bilirubin Negative (Negative) 03/24/19 23:25 Urine Urobilinogen 0.2 EU/dL (Up TO 0.2) 03/24/19 23:25 Ur Leukocyte Esterase Negative (Negative) 03/24/19 23:25 Urine Glucose Negative mg/dL (Negative) 03/24/19 23:25 Specimen Type Cancelled 03/24/19 22:07 Vancomycin Trough 10.3 ug/mL (10.0-20.0) 03/26/19 09:20 Influenza Type A RNA Cancelled 03/24/19 22:07 Influenza Type B RNA Cancelled 03/24/19 22:07 RSV RNA Qual (PCR) Cancelled 03/24/19 22:07
[2019-03-26] MEDS: Normal Saline Flush 10 ML SYR IVP (14:44)
[2019-03-26] MEDS: Lactobacillus Acidophilus CAP 1 CAP PO (19:52)
[2019-03-27] MEDS: Penicillin G POT. 3,000,000 UNITS in Normal Saline 50 ML 100 UNITS IVPB ×3 (01:43→10:20)
[2019-03-27] MEDS: Acetaminophen 500 MG TAB 1000 MG PO ×3 (01:52→19:48)
[2019-03-27] MEDS: POTASSIUM CHLORIDE/0.9% NACL 1,000 ML 100 MEQ IV ×2 (05:47→17:49)
[2019-03-27 07:32] LABS: Anion Gap 8.4 mmol/L (3-11); BUN 8 mg/dL (7-18); CO2 26.6 mmol/L (21.0-32.0); CREATININE 0.81 mg/dL (0.70-1.30); Calcium 8.6 mg/dL (8.5-10.1); Chloride 108 mmol/L (98-107); Glucose 105 mg/dL (74-106); Sodium 143 mmol/L (136-145)
[2019-03-27 07:38] VITALS: BP 154/51; PULSE 76; RESP 19; TEMP 36.5; O2SAT 96
[2019-03-27] MEDS: hydrALAZINE 10 MG TAB 30 MG PO ×3 (09:20→19:47)
[2019-03-27] MEDS: Apixaban 5 MG TAB PO ×2 (09:21→19:48)
[2019-03-27] MEDS: amLODIPine 10 MG TAB PO (09:21)
[2019-03-27] MEDS: Lisinopril 20 MG TAB 40 MG PO (09:21)
[2019-03-27] MEDS: Lactobacillus Acidophilus CAP 1 CAP PO ×2 (09:21→19:48)
[2019-03-27] MEDS: Normal Saline Flush 10 ML SYR IVP (10:20)
--- NOTE | 2019-03-27 10:31 | RESPIRATORY ---
Pt stated he does not have Sleep Apnea and never has been diagnosed with it either.
--- NOTE | 2019-03-27 12:56 | W.NUTCONSULT ---
Date of service: 03/27/19 Time of Service: 12:56 Nutritional Consult ASSESSMENT: 58 year old male admitted with acute kidney injury, sepsis and chronic lymphema. BMI indicates class 3 obesity. Following regular meal plan with adequate intake. At high nutritional risk in view of BMI. Will educate on weight management and provide my contact information when available. MONITORING AND EVALUATION: po intake, weight Time Spent in Nutritional Counseling and Treatment: 0 time spent face to face
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
--- NOTE | 2019-03-27 13:59 | PGE_ITS ---
Date of Service Date of service: 03/27/19 Time of Service: 13:59 Assessment and Plan Assessment and plan (1) Sepsis due to group B Streptococcus with acute organ dysfunction: Status: Acute Assessment and plan: Blood culture growing GBS. I have stopped the vancomycin and Zosyn in favor of penicillin G IV at high doses, which seems to be controlling the systemic infection, but the cellulitis is getting worse. He is at risk for polymicrobial infection including pseudomonas with foot wound and chornic lymphedema. I will put him back on Zosyn which should cover the GBS as well as other possible foot wound infections including Pseudomonas and anaerobes. When he improves again, consider transition to Unasyn or oral Augmentin. Had CT 03/25 not consistent with necrotizing fasciitis, and does not demonstrate a radiolucent foreign body, but must reconsider this if continues to worsen despite broader abx. (2) Hypertension: Status: Chronic Assessment and plan: We had held outpatient antihypertensives while blood pressures low, restarted yesterday. Hydralazine was held once overnight with a soft blood pressure. Blood pressure higher now again 150 systolic. Continue his outpatient medications. Creatinine stable back on lisinopril. (3) Atrial fibrillation: Status: None Assessment and plan: Current exam consistent with normal sinus. Rate is o contreras. He is on apixaban, which will also cover DVT prophylaxis. (4) Lymphedema: Status: None Assessment and plan: His lower extremity lymphedema is consistent with his chronic picture, though little worse as he has not had his compression therapy. Meeting with physical therapy today to discuss compression plan and possible manual therapy when infection has improved. (5) Acute kidney injury: Status: Acute Assessment and plan: Present on admission related to GBS sepsis as above, prerenal due to hypovolemia. Improved with hydration and kidney function now normal. Monitor GFR with antibiotic changes. (6) Diarrhea: Status: Acute Assessment and plan: This is a chronic issue. Will give Imodium as needed. I did write for a probiotic as well. He would like to get tested for pancreatic insufficiency, which we can do as an outpatient. (7) disposition: Status: Acute Assessment and plan: Stable on medical floor. With signs of worsening infection, cleared need for ongoing IV antibiotics. He may need another 48 hours. Subjective Subjective Patient reports: bowel movement and diarrhea; denies nausea, vomiting and shortness of breath Interval history since last seen: 24 hr: Pip/tazo and vancomycin stopped, changed to PCN G after culture returned GBS in blood Marcin is concerned that local redness and swelling in RLE is worse since changing antibiotics. RN agrees. Overall he feels okay, a little feverish but this is better, not having to take acetaminophen scheduled. He is eating and drinking. no chest pain, palpitations, cough. No change in BMs. Exam Narrative Exam Narrative: GEN: Alert and oriented, able to sit up on his own HEENT conjunctive are clear, moist mucous membranes, no icterus; lungs: clear to auscultation bilaterally with normal effort heart: RRR,no murmur audible today; abdomen soft and NT, active bowel sounds; extremities 3+ lymphedema (chronic), 2 cm sore with 8mm open area on skin dorsal to right 1st MTP. No fluctuance or drainage. Right calf more distinctly red to upper calf, clearly beyond the marked line, and subtle erthythema extending right medial thigh. left calf not tender. Objective Objective Clinical Data: Abnormal lab results 03/27/19 Range/Units 07:10 Chloride 108 H (98-107) mmol/L Vital Signs Temperature 36.5 C 03/27/19 07:38 Temperature Source Tympanic 03/27/19 07:38 Pulse 76 03/27/19 07:38 Pulse Rhythm Regular 03/27/19 00:44 Respiratory Rate 19 03/27/19 07:38 Respiratory Effort Non-Labored 03/27/19 00:44 Respiratory Depth Normal 03/27/19 00:44 Respiratory Pattern Normal 03/27/19 00:44 Blood Pressure 154/51 H 03/27/19 07:38 Pulse Oximetry 96 03/27/19 07:38 Oxygen Delivery Method Room Air 03/27/19 07:38 Oxygen Flow Rate 0 03/27/19 07:38 Pain Level 6 03/27/19 12:25 Comment 03/26/19 20:46 Intake & Output 03/26/19 03/27/19 03/27/19 23:59 11:59 23:59 Intake Total 1375 / 2691.667 1580 / 1820 240 / 1820 Output Total 860 / 860 2400 / 2400 Balance 515 / 1831.667 -820 / -580 240 / -580 Weight 156 kg Intake: IV 1135 / 2001.667 1090 / 1090 Oral 240 / 690 490 / 730 240 / 730 Output: Urine 860 / 860 2400 / 2400 Other: Urine Color Yellow Yellow Urine Appearance Clear Clear Voiding Methods Urinal Urinal Laboratory Results WBC 17.07 k/cumm (4.4-10.8) H D 03/26/19 06:20 RBC 3.92 m/cumm (4.50-6.00) L 03/26/19 06:20 Hgb 11.8 g/dL (13.5-17.5) L 03/26/19 06:20 Hct 36.7 % (40.0-50.0) L 03/26/19 06:20 MCV 93.6 fL (80-95) 03/26/19 06:20 MCH 30.1 pg (27.0-33.0) 03/26/19 06:20 MCHC 32.2 g/dL (32.0-36.0) 03/26/19 06:20 RDW 14.9 % (11.8-14.1) H 03/26/19 06:20 Plt Count 193 x1000/uL (130-400) 03/26/19 06:20 MPV 9.1 fL (8.0-11.0) 03/26/19 06:20 Immature Gran % See Differential 03/26/19 06:20 Neutrophils % 57.0 03/26/19 06:20 Band Neutrophils % 33.0 % 03/26/19 06:20 Lymphocytes % 5.0 03/26/19 06:20 Atypical Lymphs % 2 03/26/19 06:20 Monocytes % 1.0 03/26/19 06:20 Eosinophils % 0.0 03/26/19 06:20 Basophils % 0.0 03/26/19 06:20 Metamyelocytes % 2.0 % 03/26/19 06:20 Absolute Neutrophils 15.36 k/cumm (1.2-6.7) H 03/26/19 06:20 Absolute Lymphocytes 1.19 k/cumm (1.2-3.4) L 03/26/19 06:20 Absolute Monocytes 0.17 k/cumm (0.11-0.7) 03/26/19 06:20 Absolute Eosinophils 0.00 k/cumm (0.0-0.7) 03/26/19 06:20 Absolute Basophils 0.00 k/cumm (0.0-0.2) 03/26/19 06:20 Differential Comment Manual differential 03/26/19 06:20 RBC Morphology Normal 03/26/19 06:20 PT 10.6 sec (9.3-11.0) 03/24/19 21:19 INR 1.1 (0.9-1.1) 03/24/19 21:19 APTT 19.4 sec (21.0-31.4) L 03/24/19 21:19 Sodium 143 mmol/L (136-145) 03/27/19 07:10 Potassium 4.0 mmol/L (3.5-5.1) 03/27/19 07:10 Chloride 108 mmol/L (98-107) H 03/27/19 07:10 Carbon Dioxide 26.6 mmol/L (21.0-32.0) 03/27/19 07:10 Anion Gap 8.4 mmol/L (3-11) 03/27/19 07:10 BUN 8 mg/dL (7-18) 03/27/19 07:10 Creatinine 0.81 mg/dL (0.70-1.30) 03/27/19 07:10 Estimated GFR/1.73 m2 >= 60.00 (mL/min/1.73m2) 03/27/19 07:10 Glucose 105 mg/dL (74-106) 03/27/19 07:10 Lactate 3.1 mmol/L (0.6-1.4) H* 03/24/19 21:19 Calcium 8.6 mg/dL (8.5-10.1) 03/27/19 07:10 Magnesium 1.8 mg/dL (1.8-2.4) 03/26/19 06:20 Total Bilirubin 1.0 mg/dL (0.2-1.0) 03/24/19 21:19 AST 30 U/L (15-37) 03/24/19 21:19 ALT 51 U/L (16-63) 03/24/19 21:19 Alkaline Phosphatase 64 U/L (46-116) 03/24/19 21:19 Creatine Kinase 246 U/L (39-308) 03/24/19 21:19 NT-Pro-B Natriuret Pep 99 pg/mL (<300) 03/24/19 21:19 Total Protein 6.9 g/dL (6.4-8.2) 03/24/19 21: Albumin 3.6 g/dL (3.4-5.0) 03/24/19 21:19 Urine Color Yellow (Yellow) 03/24/19 23:25 Urine Clarity Clear (Clear) 03/24/19 23: Urine pH 5.5 (5-8) 03/24/19 23:25 Ur Specific [place] 1.010 (1.005-1.025) 03/24/19 23:25 Urine Protein Negative mg/dL (Negative) 03/24/19 23: Urine Ketones Negative mg/dL (Negative) 03/24/19 23:25 Urine Blood Negative (Negative) 03/24/19 23: Urine Nitrite Negative (Negative) 03/24/19 23:25 Urine Bilirubin Negative (Negative) 03/24/19 23:25 Urine Urobilinogen 0.2 EU/dL (Up TO 0.2) 03/24/19 23:25 Ur Leukocyte Esterase Negative (Negative) 03/24/19 23:25 Urine Glucose Negative mg/dL (Negative) 03/24/19 23:25 Specimen Type Cancelled 03/24/19 22:07 Vancomycin Trough 10.3 ug/mL (10.0-20.0) 03/26/19 09:20 Influenza Type A RNA Cancelled 03/24/19 22:07 Influenza Type B RNA Cancelled 03/24/19 22:07 RSV RNA Qual (PCR) Cancelled 03/24/19 22:07
[2019-03-27 14:10] VITALS: BP 135/65; PULSE 91; RESP 19; TEMP 37.5; O2SAT 95
[2019-03-27] MEDS: PIPERACILLIN/TAZO 3.375 GM in Normal Saline 50 ML IVPB ×2 (15:57→21:52)
[2019-03-27 16:16] VITALS: BP 162/73; PULSE 87; RESP 18; TEMP 37.2; O2SAT 96
--- NOTE | 2019-03-27 16:28 | PDOC.CMPRO ---
- If Service Date Differs Date of service: 03/27/19 Time of Service: 16:28 Care Management Progress Note S/O: Marcin was sitting up in his chair when CM met with him. He reported that he was glad that he came to the ED when he did, as he was very sick. He reported that he seems to be getting better, although the swelling in his legs is not yet under control. He has also reportedly still had a fever recently. Per provider, he is still requiring IV abx at this time. He identifies a friend in the community who supports him, two children who do not live nearby, and fellow volunteers at [facility] who are supportive as well. He has CFC moderate needs that help him at home from the community. He stated that he is receiving good care at [facility]. CM will continue to follow. A: Marcin is a 58 year old male admitted to [facility] 03/24/19 for Sepsis. P: Marcin will return home when ready per MD. He will resume CFC moderate needs, and may need new orders for HH, if necessary. He will follow up with his PCP, as recommended. His friend will drive him home via private vehicle when ready. CM will continue to follow and support discharge planning considerations.
[2019-03-28 00:34] VITALS: BP 137/74; PULSE 75; RESP 18; TEMP 37.3; O2SAT 96
[2019-03-28] MEDS: Acetaminophen 500 MG TAB 1000 MG PO ×3 (02:48→19:36)
[2019-03-28] MEDS: PIPERACILLIN/TAZO 3.375 GM in Normal Saline 50 ML IVPB ×3 (03:36→16:08)
[2019-03-28] MEDS: POTASSIUM CHLORIDE/0.9% NACL 1,000 ML 100 MEQ IV ×2 (03:41→16:08)
[2019-03-28 07:00] LABS: Lactate 1.2 mmol/L (0.6-1.4)
[2019-03-28 07:04] LABS: Abs Immature Grans 0.15 k/cumm (0.0-0.09); Absolute Basophil Count 0.06 k/cumm (0.0-0.2); Absolute Eosinophil Count 0.15 k/cumm (0.0-0.7); Absolute Lymphocyte Count 1.93 k/cumm (1.2-3.4); Absolute Monocyte Count 1.21 k/cumm (0.11-0.7); Absolute Neutrophil Count 7.09 k/cumm (1.2-6.7); Basophils % 0.6; Eosinophils % 1.4; HCT 39.8 % (40.0-50.0); HGB 12.9 g/dL (13.5-17.5); Immature Grans % 1.4 %; Lymphocytes % 18.2; Mean Corp. HGB Concentration 32.4 g/dL (32.0-36.0); Mean Corpuscular Volume 92.6 fL (80-95); Mean Platelet Volume 8.9 fL (8.0-11.0); Monocytes % 11.4; Platelet Count 218 x1000/uL (130-400); RBC Distribution Width 14.7 % (11.8-14.1); White Blood Cell Count 10.59 k/cumm (4.4-10.8)
[2019-03-28 07:25] LABS: BUN 8 mg/dL (7-18); CREATININE 0.81 mg/dL (0.70-1.30); Calcium 8.8 mg/dL (8.5-10.1); Chloride 108 mmol/L (98-107); Glucose 121 mg/dL (74-106); Potassium 4.2 mmol/L (3.5-5.1); Sodium 143 mmol/L (136-145)
[2019-03-28 07:35] VITALS: BP 157/76; PULSE 86; RESP 18; TEMP 37.1; O2SAT 97
[2019-03-28] MEDS: Lactobacillus Acidophilus CAP 1 CAP PO ×2 (09:02→19:36)
[2019-03-28] MEDS: Lisinopril 20 MG TAB 40 MG PO (09:02)
[2019-03-28] MEDS: Apixaban 5 MG TAB PO ×2 (09:02→19:36)
[2019-03-28] MEDS: hydrALAZINE 10 MG TAB 30 MG PO ×3 (09:03→20:47)
[2019-03-28] MEDS: amLODIPine 10 MG TAB PO (09:03)
[2019-03-28] MEDS: Cetirizine 10 MG TAB PO (09:08)
[2019-03-28 15:00] VITALS: BP 160/68; PULSE 88; RESP 18; TEMP 37; O2SAT 97
[2019-03-28 16:04] LABS: Influenza Virus A Ab, IgG >=1:1280 (<1:10)
--- NOTE | 2019-03-28 16:52 | W.PM.PROGNOT ---
Date of Service Date of service: 03/28/19 Time of Service: 16:52 Assessment and Plan Assessment and plan (1) Sepsis due to group B Streptococcus with acute organ dysfunction: Status: Acute Assessment and plan: Given his blood cultures both being positive for group B strep and an obvious source for his infection being the shallow ulcer on the plantar surface of his foot I think that we can discontinue the Zosyn and put him on high-dose penicillin G along with clindamycin per recommendations from [facility] antimicrobial guide. I will treat his lymphedema with elevation of his legs above the level of his chest and use of Horacio wraps. I will consult with podiatry in the morning regarding his foot ulcer. CT scan did not show any evidence of foreign body in his foot. Did show evidence however of cellulitis of his leg and foot. Qualifiers: Severe sepsis acute organ dysfunction type: acute renal failure Acute renal failure type: with acute tubular necrosis Severe sepsis shock status: without septic shock Qualified Code(s): A40.1 - Sepsis due to streptococcus, group B; R65.20 - Severe sepsis without septic shock; N17.0 - Acute kidney failure with tubular necrosis (2) Cellulitis of right lower leg: Status: Acute Assessment and plan: As above (3) Atrial fibrillation: Status: None Assessment and plan: Heart rate is well controlled on his current medications and his anticoagulated with apixaban. Continue his current home medications. Qualifiers: Atrial fibrillation type: unspecified chronic Qualified Code(s): I48.20 - Chronic atrial fibrillation, unspecified (4) Obstructive sleep apnea: Status: Chronic Assessment and plan: Continue use of CPAP as per home (5) Hypertension: Status: Chronic Assessment and plan: Continue home medications of amlodipine and hydralazine. Is unclear as to why he is not on HORACIO inhibitor. He is chronic leg edema may be exacerbated by use of Norvasc. However this is his home medication regimen that Dr. Logan had him on and I am not going to change his current blood pressure medications as long as his blood pressure is well controlled. Qualifiers: Hypertension type: essential hypertension Qualified Code(s): I10 - Essential (primary) hypertension (6) Lymphedema: Status: None Assessment and plan: Begin Horacio wraps and elevation of his legs above the level of his chest. I explained to the patient the importance of keeping his legs elevated at all times. Hopefully with broaden coverage targeted coverage towards group B strep his cellulitis will resolve and his lymphedema will improve. (7) Acute kidney injury: Status: Acute Assessment and plan: Resolved with resolution of his hypotension. Subjective Subjective Interval history since last seen: Despite being on broad-spectrum antibiotics including IV Zosyn for group B strep bacteremia patient continues to have increased erythema of his right lower leg. He has chronic lymphedema and apparently has not been receiving any kind of anti-lymphedema treatment such as leg wraps or DOLLY hose. Clinically he is improved from his group B strep bacteremia and that he has remained afebrile now for over 24 hours. He has had no further rigors and his headaches have resolved. But his right leg is become painful from the swelling and erythema. It is unlikely that he has a DVT as he is chronically maintained on Eliquis 5 mg twice a day. I think he now has a cellulitis of his right leg probably from a nidus caused by a ulcer on the bottom of his right foot. This was a traumatic ulcer due to stepping on some glass on March 04 base had symptoms since March 10 with ulceration and drainage. He did not seek help until he developed fevers and rigors beginning last Wednesday. He has not diabetic. His laboratory studies regarding his bacteremia have improved his white cell count is dropped from 25,000 down to 10,000. His blood lactate is normalized at 1.2. We do not have a repeat CRP or sed rate. Procalcitonin was never performed. Exam Narrative Exam Narrative: Obese middle-aged male sitting up in a chair eating his dinner. He has a nonproductive cough. His lungs are clear to auscultation. Heart is irregularly irregular but controlled rate. Abdomen is obese soft and nontender. Lower extremities reveal lymphedema. Left leg is non-erythematous right leg is very erythematous from the foot up to just below the knee. It is warm to the touch and tender to the touch. He has a shallow ulcer on the sole of his right foot. Objective Objective Clinical Data: Abnormal lab results 03/24/19 03/28/19 03/28/19 Range/Units 21:15 06:45 06:45 RBC 4.30 L (4.50-6.00) m/cumm Hgb 12.9 L (13.5-17.5) g/dL Hct 39.8 L (40.0-50.0) % RDW 14.7 H (11.8-14.1) % Absolute Neutrophils 7.09 H (1.2-6.7) k/cumm Absolute Monocytes 1.21 H (0.11-0.7) k/cumm Chloride 108 H (98-107) mmol/L Glucose 121 H (74-106) mg/dL Influenza Type A IgG >=1:1280 A (<1:10) Influenza Type A IgM >=1:10 A (<1:10) Vital Signs Temperature 37 C 03/28/19 15:00 Temperature Source Tympanic 03/28/19 15:00 Pulse 88 03/28/19 15:00 Pulse Rhythm Regular 03/28/19 12:50 Respiratory Rate 18 03/28/19 15:00 Respiratory Effort Non-Labored 03/28/19 12:50 Respiratory Depth Normal 03/28/19 12:50 Respiratory Pattern Normal 03/28/19 12:50 Blood Pressure 160/68 H 03/28/19 15:00 Pulse Oximetry 97 03/28/19 15:00 Oxygen Delivery Method Room Air 03/28/19 15:00 Oxygen Flow Rate 0 03/28/19 15:00 Pain Level 0 03/28/19 15:00 Comment 03/26/19 20:46 Intake & Output 03/27/19 03/28/19 03/28/19 23:59 11:59 23:59 Intake Total 1870 / 3450 1086.667 / 2446.667 1360 / 2446.667 Output Total 500 / 2900 650 / 950 300 / 950 Balance 1370 / 550 436.667 / 1787.986 3373 / 1496.667 Intake: IV 1150 / 2240 1086.667 / 2086.667 1000 / 2086.667 Oral 720 / 1210 360 / 360 Output: Urine 500 / 2900 650 / 950 300 / 950 Other: Urine Color Yellow Yellow Yellow Straw Urine Appearance Clear Clear Clear Urine Odor None Stool Size Small Stool Characteristics Soft Liquid Voiding Methods Urinal Toilet Urinal Urinal Laboratory Results WBC 10.59 k/cumm (4.4-10.8) 03/28/19 06:45 RBC 4.30 m/cumm (4.50-6.00) L 03/28/19 06:45 Hgb 12.9 g/dL (13.5-17.5) L 03/28/19 06:45 Hct 39.8 % (40.0-50.0) L 03/28/19 06:45 MCV 92.6 fL (80-95) 03/28/19 06:45 MCH 30.0 pg (27.0-33.0) 03/28/19 06:45 MCHC 32.4 g/dL (32.0-36.0) 03/28/19 06:45 RDW 14.7 % (11.8-14.1) H 03/28/19 06:45 Plt Count 218 x1000/uL (130-400) 03/28/19 06:45 MPV 8.9 fL (8.0-11.0) 03/28/19 06:45 Immature Gran % 1.4 % 03/28/19 06:45 Neutrophils % 67.0 03/28/19 06:45 Band Neutrophils % 33.0 % 03/26/19 06:20 Lymphocytes % 18.2 03/28/19 06:45 Atypical Lymphs % 2 03/26/19 06:20 Monocytes % 11.4 03/28/19 06:45 Eosinophils % 1.4 03/28/19 06:45 Basophils % 0.6 03/28/19 06:45 Metamyelocytes % 2.0 % 03/26/19 06:20 Absolute Neutrophils 7.09 k/cumm (1.2-6.7) H 03/28/19 06:45 Absolute Lymphocytes 1.93 k/cumm (1.2-3.4) 03/28/19 06:45 Absolute Monocytes 1.21 k/cumm (0.11-0.7) H 03/28/19 06:45 Absolute Eosinophils 0.15 k/cumm (0.0-0.7) 03/28/19 06:45 Absolute Basophils 0.06 k/cumm (0.0-0.2) 03/28/19 06:45 Differential Comment Manual differential 03/26/19 06:20 RBC Morphology Normal 03/26/19 06:20 PT 10.6 sec (9.3-11.0) 03/24/19 21:19 INR 1.1 (0.9-1.1) 03/24/19 21:19 APTT 19.4 sec (21.0-31.4) L 03/24/19 21:19 Sodium 143 mmol/L (136-145) 03/28/19 06:45 Potassium 4.2 mmol/L (3.5-5.1) 03/28/19 06:45 Chloride 108 mmol/L (98-107) H 03/28/19 06:45 Carbon Dioxide 28.0 mmol/L (21.0-32.0) 03/28/19 06:45 Anion Gap 7.0 mmol/L (3-11) 03/28/19 06:45 BUN 8 mg/dL (7-18) 03/28/19 06:45 Creatinine 0.81 mg/dL (0.70-1.30) 03/28/19 06:45 Estimated GFR/1.73 m2 >= 60.00 (mL/min/1.73m2) 03/28/19 06:45 Glucose 121 mg/dL (74-106) H 03/28/19 06:45 Lactate 1.2 mmol/L (0.6-1.4) 03/28/19 06:45 Calcium 8.8 mg/dL (8.5-10.1) 03/28/19 06:45 Magnesium 1.8 mg/dL (1.8-2.4) 03/26/19 06:20 Total Bilirubin 1.0 mg/dL (0.2-1.0) 03/24/19 21:19 AST 30 U/L (15-37) 03/24/19 21:19 ALT 51 U/L (16-63) 03/24/19 21:19 Alkaline Phosphatase 64 U/L (46-116) 03/24/19 21:19 Creatine Kinase 246 U/L (39-308) 03/24/19 21:19 NT-Pro-B Natriuret Pep 99 pg/mL (<300) 03/24/19 21:19 Total Protein 6.9 g/dL (6.4-8.2) 03/24/19 21:19 Albumin 3.6 g/dL (3.4-5.0) 03/24/19 21:19 Urine Color Yellow (Yellow) 03/24/19 23:25 Urine Clarity Clear (Clear) 03/24/19 23:25 Urine pH 5.5 (5-8) 03/24/19 23:25 Ur Specific [place] 1.010 (1.005-1.025) 03/24/19 23:25 Urine Protein Negative mg/dL (Negative) 03/24/19 23:25 Urine Ketones Negative mg/dL (Negative) 03/24/19 23:25 Urine Blood Negative (Negative) 03/24/19 23: Urine Nitrite Negative (Negative) 03/24/19 23: Urine Bilirubin Negative (Negative) 03/24/19 23: Urine Urobilinogen 0.2 EU/dL (Up TO 0.2) 03/24/19 23:25 Ur Leukocyte Esterase Negative (Negative) 03/24/19 23:25 Urine Glucose Negative mg/dL (Negative) 03/24/19 23:25 Specimen Type Cancelled 03/24/19 22:07 Vancomycin Trough 10.3 ug/mL (10.0-20.0) 03/26/19 09:20 Influenza Type A IgG >=1:1280 (<1:10) A 03/24/19 21:15 Influenza Type A IgM >=1:10 (<1:10) A 03/24/19 21:15 Influenza Type A RNA Cancelled 03/24/19 22:07 Influenza Type B RNA Cancelled 03/24/19 22:07 RSV RNA Qual (PCR) Cancelled 03/24/19 22:07
--- NOTE | 2019-03-28 17:48 | CMPROGNOTE_ITS ---
- If Service Date Differs Date of service: 03/28/19 Time of Service: 17:48 Care Management Progress Note S/O: Marcin is sitting in a chair watching television when CM comes to meet with him. He is pleasant and easily engages in conversation. He talks about his trip to [place] and discusses some of his medical issues. He shares he has to remain at [facility] for 48 hours after cessation of his fever. He is in good spirits and says [facility] staff are kind and caring. CM will continue to support patient. A: Marcin is a 58 year old male admitted to [facility] on 03/24/2019 for sepsis. P: Marcin will be discharged home when medically cleared by provider. Anticipate resumption of CFC moderate needs at time of discharge. He will be driven home by a friend via private vehicle when ready. CM will continue to support patient and discharge planning considerations.
[2019-03-28] MEDS: Benzonatate 200 MG CAP PO (19:36)
[2019-03-28] MEDS: CLINDAMYCIN 900 MG/50 ML BAG 50 MG IVPB (19:37)
[2019-03-28] MEDS: Penicillin G POT. 3,000,000 UNITS in Normal Saline 50 ML 100 UNITS IVPB (20:47)
[2019-03-28 23:36] VITALS: BP 159/78; PULSE 71; RESP 19; TEMP 37.4; O2SAT 95
[2019-03-29] MEDS: Penicillin G POT. 3,000,000 UNITS in Normal Saline 50 ML 100 UNITS IVPB ×7 (00:16→23:45)
[2019-03-29] MEDS: Normal Saline Flush 10 ML SYR IVP ×7 (00:17→23:44)
[2019-03-29] MEDS: CLINDAMYCIN 900 MG/50 ML BAG 50 MG IVPB ×3 (02:01→17:35)
[2019-03-29] MEDS: Acetaminophen 500 MG TAB 1000 MG PO ×3 (04:29→20:13)
[2019-03-29 07:15] VITALS: BP 163/74; PULSE 71; RESP 20; TEMP 37.1; O2SAT 94
[2019-03-29 07:28] LABS: Abs Immature Grans 0.67 k/cumm (0.0-0.09); HCT 41.8 % (40.0-50.0); HGB 13.6 g/dL (13.5-17.5); Mean Corp. HGB Concentration 32.5 g/dL (32.0-36.0); Mean Corpuscular Hemoglobin 29.8 pg (27.0-33.0); Mean Corpuscular Volume 91.7 fL (80-95); Mean Platelet Volume 8.8 fL (8.0-11.0); Platelet Count 244 x1000/uL (130-400); RBC 4.56 m/cumm (4.50-6.00); RBC Distribution Width 14.6 % (11.8-14.1); White Blood Cell Count 10.27 k/cumm (4.4-10.8)
[2019-03-29 07:44] LABS: BUN 11 mg/dL (7-18); Calcium 9.4 mg/dL (8.5-10.1); Chloride 105 mmol/L (98-107); Glucose 124 mg/dL (74-106); Potassium 4.1 mmol/L (3.5-5.1); Sodium 142 mmol/L (136-145)
[2019-03-29 07:52] LABS: Absolute Lymphocyte Count 2.05 k/cumm (1.2-3.4); Absolute Monocyte Count 1.23 k/cumm (0.11-0.7); Absolute Neutrophil Count 6.26 k/cumm (1.2-6.7); Atypical Lymphocytes % 2
[2019-03-29 07:53] LABS: Diff Comment Manual Differential; RBC Morphology Normal
[2019-03-29] MEDS: Benzonatate 200 MG CAP PO ×3 (09:00→20:09)
[2019-03-29] MEDS: Apixaban 5 MG TAB PO ×2 (09:01→20:10)
[2019-03-29] MEDS: Lactobacillus Acidophilus CAP 1 CAP PO ×2 (09:01→20:09)
[2019-03-29] MEDS: Lisinopril 20 MG TAB 40 MG PO (09:01)
[2019-03-29] MEDS: amLODIPine 10 MG TAB PO (09:02)
[2019-03-29] MEDS: hydrALAZINE 10 MG TAB 30 MG PO ×3 (09:02→20:10)
[2019-03-29] MEDS: Normal Saline Flush 10 ML SYR (09:13)
[2019-03-29] MEDS: Furosemide 20 MG TAB PO (09:31)
[2019-03-29 10:12] VITALS: O2SAT 95
[2019-03-29 14:17] VITALS: BP 133/69; PULSE 86; RESP 18; TEMP 37.4; O2SAT 98
[2019-03-29 15:20] VITALS: BP 150/78; PULSE 91; RESP 20; TEMP 37.9; O2SAT 98
--- NOTE | 2019-03-29 16:46 | PDOC.CMPRO ---
- If Service Date Differs Date of service: 03/29/19 Time of Service: 16:46 Care Management Progress Note S/O: Marcin is sitting in a chair watching television when CM comes to meet with him. He reports he continues to improve and says his fever is almost gone. He shares financial concerns and says he thought someone from the business office was going to get back to him about a Financial Asst Packet, but he has yet to hear from anyone. CM will continue to follow. A: Marcin is a 58 year old male admitted to [facility] on 03/24/2019 for sepsis. P: Marcin will return home when medically cleared by provider with resumption of homemaking services and CFC moderate needs. Marcin continues to be evaluated to further needs. CM will continue to follow.
--- NOTE | 2019-03-29 22:00 | NUR.NOTE ---
Nursing Note: Pt was encouraged to elevate legs while in recliner and on bed. , He is compliant in short period. Right leg redness decreased, seen by MD less from border marked noted., Tubigrip was applied by pt on the right leg, he wants to double the tubigrip. PTherapist brought another long thick tubigrip for left leg but pt refused to change abhinav wrap on the left leg. that already in there. Independent to go to toilet. Medicated with tylenol for headache and able to get some sleep. Continue to observe.
--- NOTE | 2019-03-29 23:04 | W.PM.PROGNOT ---
Date of Service Date of service: 03/29/19 Time of Service: 15:30 Assessment and Plan Assessment and plan (1) Cellulitis of right lower leg: Status: Acute Assessment and plan: continue Clindamycin and high dose PCN G. Treat for 10 to [address] Bradofrd to examine his right foot wouund to see if this needs debrided. (2) Sepsis due to group B Streptococcus with acute organ dysfunction: Status: Acute Assessment and plan: as above Qualifiers: Severe sepsis acute organ dysfunction type: acute renal failure Acute renal failure type: with acute tubular necrosis Severe sepsis shock status: without septic shock Qualified Code(s): A40.1 - Sepsis due to streptococcus, group B; R65.20 - Severe sepsis without septic shock; N17.0 - Acute kidney failure with tubular necrosis (3) Lymphedema: Status: None Assessment and plan: continue MARIAM wraps and elevation. Consider change of his HTN meds away from [facility]. Subjective Subjective Interval history since last seen: Overall continues to improve. He is afebrile and his leukocytosis has resolved although his right leg remains edematous w/ erythema and he says that it feels like a sunburn. His CRP remains elevated but the area of erythema is receding. He states that he has been keeping his leg elevated above the level of his chest although everytime I have walked by his room (multiple times this a.m. and this p.m.) he is always sitting in his chair either eating, having a coffee or watching TV and never with his leg propped up. However nursing has been doing the MARIAM wraps which has helped with his edema. I ordered a dose of oral lasix this a.m. due to his volume overload from his iv fluid resuscitation. Exam Narrative Exam Narrative: Morbidly obese male sitting up in his chair. No acute distress. RLE w/ MARIAM wrap on. After removal of his MARIAM wrap I looked at the leg and found that the area of erythema has receded below the line that nursing staff nighat ink torey just below his knee cap. the erythema has receded greatly and is less intense, looking more pink and diffuse except in the center of the tibia and over the calf where it remains intense. The right foot wound is shallow with surrounding white eschar but no pus. Objective Objective Clinical Data: Abnormal lab results 03/29/19 03/29/19 Range/Units 07:15 07:15 RDW 14.6 H (11.8-14.1) % Absolute Monocytes 1.23 H (0.11-0.7) k/cumm Glucose 124 H (74-106) mg/dL C-Reactive Protein 6.30 H (0.0-0.3) mg/dL Vital Signs Temperature 37.9 C H 03/29/19 15:20 Temperature Source Tympanic 03/29/19 15:20 Pulse 91 H 03/29/19 15:20 Pulse Rhythm Regular 03/29/19 16:41 Respiratory Rate 20 03/29/19 15:20 Respiratory Effort Non-Labored 03/29/19 16:41 Respiratory Depth Normal 03/29/19 16:41 Respiratory Pattern Normal 03/29/19 16:41 Blood Pressure 150/78 H 03/29/19 15:20 Pulse Oximetry 98 03/29/19 15:20 Oxygen Delivery Method Room Air 03/29/19 15:20 Oxygen Flow Rate 0 03/29/19 15:20 Pain Level 4 03/29/19 20:13 Comment 03/26/19 20:46 Intake & Output 03/28/19 03/29/19 03/29/19 23:59 11:59 23:59 Intake Total 2370 / 3456.667 680 / 1360 680 / 1360 Output Total 625 / 1275 500 / 850 350 / 850 Balance 1745 / 2181.667 180 / 510 330 / 510 Weight 150 kg Intake: IV 1530 / 2616.667 200 / 400 200 / 400 Oral 840 / 840 480 / 960 480 / 960 Output: Urine 625 / 1275 500 / 850 350 / 850 Other: Urine Color Yellow Yellow Yellow Urine Appearance Clear Clear Clear Comment Voided independently into the toilet X3 as per patient. Voiding Methods Urinal Toilet Toilet Urinal Laboratory Results WBC 10.27 k/cumm (4.4-10.8) 03/29/19 07:15 RBC 4.56 m/cumm (4.50-6.00) 03/29/19 07:15 Hgb 13.6 g/dL (13.5-17.5) 03/29/19 07:15 Hct 41.8 % (40.0-50.0) 03/29/19 07:15 MCV 91.7 fL (80-95) 03/29/19 07:15 MCH 29.8 pg (27.0-33.0) 03/29/19 07:15 MCHC 32.5 g/dL (32.0-36.0) 03/29/19 07:15 RDW 14.6 % (11.8-14.1) H 03/29/19 07:15 Plt Count 244 x1000/uL (130-400) 03/29/19 07:15 MPV 8.8 fL (8.0-11.0) 03/29/19 07:15 Immature Gran % See Differential 03/29/19 07:15 Neutrophils % 61.0 03/29/19 07:15 Band Neutrophils % 33.0 % 03/26/19 06:20 Lymphocytes % 18.0 03/29/19 07:15 Atypical Lymphs % 2 03/29/19 07:15 Monocytes % 12.0 03/29/19 07:15 Eosinophils % 1.0 03/29/19 07:15 Basophils % 0.0 03/29/19 07:15 Metamyelocytes % 1.0 % 03/29/19 07:15 Myelocytes % 5.0 % 03/29/19 07:15 Absolute Neutrophils 6.26 k/cumm (1.2-6.7) 03/29/19 07:15 Absolute Lymphocytes 2.05 k/cumm (1.2-3.4) 03/29/19 07:15 Absolute Monocytes 1.23 k/cumm (0.11-0.7) H 03/29/19 07:15 Absolute Eosinophils 0.10 k/cumm (0.0-0.7) 03/29/19 07:15 Absolute Basophils 0.00 k/cumm (0.0-0.2) 03/29/19 07:15 Differential Comment Manual differential 03/29/19 07:15 RBC Morphology Normal 03/29/19 07:15 PT 10.6 sec (9.3-11.0) 03/24/19 21:19 INR 1.1 (0.9-1.1) 03/24/19 21:19 APTT 19.4 sec (21.0-31.4) L 03/24/19 21:19 Sodium 142 mmol/L (136-145) 03/29/19 07:15 Potassium 4.1 mmol/L (3.5-5.1) 03/29/19 07:15 Chloride 105 mmol/L (98-107) 03/29/19 07:15 Carbon Dioxide 27.0 mmol/L (21.0-32.0) 03/29/19 07:15 Anion Gap 10.0 mmol/L (3-11) 03/29/19 07:15 BUN 11 mg/dL (7-18) 03/29/19 07:15 Creatinine 0.80 mg/dL (0.70-1.30) 03/29/19 07:15 Estimated GFR/1.73 m2 >= 60.00 (mL/min/1.73m2) 03/29/19 07:15 Glucose 124 mg/dL (74-106) H 03/29/19 07:15 Lactate 1.2 mmol/L (0.6-1.4) 03/28/19 06:45 Calcium 9.4 mg/dL (8.5-10.1) 03/29/19 07:15 Magnesium 1.8 mg/dL (1.8-2.4) 03/26/19 06:20 Total Bilirubin 1.0 mg/dL (0.2-1.0) 03/24/19 21:19 AST 30 U/L (15-37) 03/24/19 21:19 ALT 51 U/L (16-63) 03/24/19 21:19 Alkaline Phosphatase 64 U/L (46-116) 03/24/19 21:19 Creatine Kinase 246 U/L (39-308) 03/24/19 21:19 C-Reactive Protein 6.30 mg/dL (0.0-0.3) H 03/29/19 07:15 NT-Pro-B Natriuret Pep 99 pg/mL (<300) 03/24/19 21:19 Total Protein 6.9 g/dL (6.4-8.2) 03/24/19 21:19 Albumin 3.6 g/dL (3.4-5.0) 03/24/19 21:19 Urine Color Yellow (Yellow) 03/24/19 23:25 Urine Clarity Clear (Clear) 03/24/19 23:25 Urine pH 5.5 (5-8) 03/24/19 23:25 Ur Specific [place] 1.010 (1.005-1.025) 03/24/19 23:25 Urine Protein Negative mg/dL (Negative) 03/24/19 23:25 Urine Ketones Negative mg/dL (Negative) 03/24/19 23:25 Urine Blood Negative (Negative) 03/24/19 23:25 Urine Nitrite Negative (Negative) 03/24/19 23:25 Urine Bilirubin Negative (Negative) 03/24/19 23: Urine Urobilinogen 0.2 EU/dL (Up TO 0.2) 03/24/19 23:25 Ur Leukocyte Esterase Negative (Negative) 03/24/19 23:25 Urine Glucose Negative mg/dL (Negative) 03/24/19 23:25 Specimen Type Cancelled 03/24/19 22:07 Vancomycin Trough 10.3 ug/mL (10.0-20.0) 03/26/19 09:20 Influenza Type A IgG >=1:1280 (<1:10) A 03/24/19 21:15 Influenza Type A IgM >=1:10 (<1:10) A 03/24/19 21:15 Influenza Type A RNA Cancelled 03/24/19 22:07 Influenza Type B RNA Cancelled 03/24/19 22:07 RSV RNA Qual (PCR) Cancelled 03/24/19 22:07
[2019-03-29 23:21] VITALS: BP 135/72; PULSE 81; RESP 20; TEMP 37.2; O2SAT 97
[2019-03-30] MEDS: CLINDAMYCIN 900 MG/50 ML BAG 50 MG IVPB ×3 (02:01→18:23)
[2019-03-30] MEDS: Penicillin G POT. 3,000,000 UNITS in Normal Saline 50 ML 100 UNITS IVPB ×5 (05:47→20:44)
[2019-03-30] MEDS: guaiFENesin 600 MG TABCR PO (05:47)
[2019-03-30] MEDS: Normal Saline Flush 10 ML SYR IVP ×3 (05:48→20:45)
[2019-03-30] MEDS: Acetaminophen 500 MG TAB 1000 MG PO ×3 (05:59→22:15)
[2019-03-30 06:59] LABS: HCT 42.7 % (40.0-50.0); HGB 13.8 g/dL (13.5-17.5); Mean Corp. HGB Concentration 32.3 g/dL (32.0-36.0); Mean Corpuscular Hemoglobin 29.8 pg (27.0-33.0); Mean Corpuscular Volume 92.2 fL (80-95); Mean Platelet Volume 8.8 fL (8.0-11.0); Platelet Count 280 x1000/uL (130-400); RBC 4.63 m/cumm (4.50-6.00); RBC Distribution Width 14.9 % (11.8-14.1); White Blood Cell Count 10.35 k/cumm (4.4-10.8)
[2019-03-30 07:00] VITALS: BP 172/95; PULSE 86; RESP 18; TEMP 37.3; O2SAT 96
[2019-03-30 07:11] LABS: Anion Gap 7.3 mmol/L (3-11); BUN 11 mg/dL (7-18); C-Reactive Protein 5.16 mg/dL (0.0-0.3); CO2 29.7 mmol/L (21.0-32.0); CREATININE 0.97 mg/dL (0.70-1.30); Calcium 9.2 mg/dL (8.5-10.1); Chloride 105 mmol/L (98-107); Glucose 117 mg/dL (74-106); Magnesium 1.8 mg/dL (1.8-2.4); Sodium 142 mmol/L (136-145)
[2019-03-30 07:38] LABS: Absolute Basophil Count 0.21 k/cumm (0.0-0.2); Absolute Lymphocyte Count 3.42 k/cumm (1.2-3.4); Absolute Monocyte Count 1.24 k/cumm (0.11-0.7); Absolute Neutrophil Count 5.28 k/cumm (1.2-6.7); Atypical Lymphocytes % 7; Diff Comment Manual Differential
[2019-03-30] MEDS: amLODIPine 10 MG TAB PO (09:23)
[2019-03-30] MEDS: Apixaban 5 MG TAB PO ×2 (09:23→20:46)
[2019-03-30] MEDS: Lactobacillus Acidophilus CAP 1 CAP PO ×2 (09:23→20:45)
[2019-03-30] MEDS: Lisinopril 20 MG TAB 40 MG PO (09:24)
[2019-03-30] MEDS: hydrALAZINE 10 MG TAB 30 MG PO ×3 (09:24→20:45)
[2019-03-30] MEDS: Benzonatate 200 MG CAP PO ×3 (09:24→20:45)
--- NOTE | 2019-03-30 13:40 | PGE_ITS ---
Date of Service Date of service: 03/30/19 Time of Service: 13:40 Assessment and Plan Assessment and plan (1) Sepsis due to group B Streptococcus with acute organ dysfunction: Status: Acute Assessment and plan: Sepsis has resolved. He continues to receive high- dose penicillin G and clindamycin. He should receive 10 days of parenteral IV antibiotics. I will repeat his C-reactive protein along with a procalcitonin level in the morning., To get follow-up blood cultures today to ensure that he is clearing his bacteremia. However clinically he is improving. I think the erythema and burning sensation in his right leg is slow to resolve because of the chronic lymphedema. Qualifiers: Severe sepsis acute organ dysfunction type: acute renal failure Acute renal failure type: with acute tubular necrosis Severe sepsis shock status: without septic shock Qualified Code(s): A40.1 - Sepsis due to streptococcus, group B; R65.20 - Severe sepsis without septic shock; N17.0 - Acute kidney failure with tubular necrosis (2) Cellulitis of right lower leg: Status: Acute Assessment and plan: Continue antibiotics as above with monitoring of renal function CBC CRP and procalcitonin. Repeat blood cultures is pending. Continue elevation and Horacio wraps. (3) Hypertension: Status: Chronic Assessment and plan: DC Norvasc and initiate carvedilol and Dyazide. Monitor renal function. Continue lisinopril. Qualifiers: Hypertension type: essential hypertension Qualified Code(s): I10 - Essential (primary) hypertension (4) Lymphedema: Status: None Assessment and plan: Horacio wraps elevation and diuretics as above. (5) Obstructive sleep apnea: Status: Chronic Assessment and plan: Continue use of CPAP at night. Subjective Subjective Interval history since last seen: Patient remains afebrile and continues to improve from his cellulitis. Says the skin is still sensitive and feels like a sunburn. His CRP remains elevated but is on the decline. It is now down to 5.1 . As for his blood pressure it remains poorly controlled running in the 160s to 170s although there are times where his systolic pressures down in the 130s to 150s. He says at home usually his systolic pressures in the 150s and sometimes 140s with diastolic readings in the 70s to 80s. Although he complains of a cough that is been recent in the past month since he traveled to [place] to visit his daughter. He has postnasal drainage and I suggested trial of Flonase to help with the postnasal drainage. He has been on lisinopril for a number of years and is concerned that maybe this is a cause for his cough. I am reluctant to make to make changes in his blood pressure medications however because he is poorly controlled I think it is worth trying him on some new blood pressure medications and because of his chronic leg edema I think it is worth getting him off of amlodipine which has a known side effect of causing peripheral edema. I think if we do not address the issue with his lymphedema he is could have recurrent cellulitis in that leg. As far as his cellulitis goes although the skin is camp tender the area of erythema is receding from its peak. We will continue to do leg wraps to help with the edema. I am going to discontinue his amlodipine and put him on Dyazide as well as carvedilol and keep his lisinopril dose the same. We will monitor his BMP as well as his peripheral edema and his blood pressures. He is going to be here on parenteral antibiotics through the weekend to complete treatment for group B strep bacteremia with sepsis. He should complete at least a 10 to 14 days of parenteral antibiotics. Exam Narrative Exam Narrative: Morbidly obese pleasant gentleman who is lying in bed. Both legs had Horacio wraps on. Lungs are clear to auscultation. Heart is regular rate and rhythm with soft systolic murmur. No rub. Lower extremities are edematous with the right leg more edematous than the left. The mid tibia is very intensely red and tender to the touch and warm. The area of erythema has significantly receded from its peak which was just below the patella. It is erythematous down to the ankle. The right foot wound is shallow about size of a dime with some white eschar around the shallow ulcer. Objective Objective Clinical Data: Abnormal lab results 03/30/19 03/30/19 Range/Units 06:00 06:00 RDW 14.9 H (11.8-14.1) % Absolute Lymphocytes 3.42 H (1.2-3.4) k/cumm Absolute Monocytes 1.24 H (0.11-0.7) k/cumm Absolute Basophils 0.21 H (0.0-0.2) k/cumm Glucose 117 H (74-106) mg/dL C-Reactive Protein 5.16 H (0.0-0.3) mg/dL Vital Signs Temperature 37.3 C 03/30/19 07:00 Temperature Source Tympanic 03/30/19 07:00 Pulse 86 03/30/19 07:00 Pulse Rhythm Regular 03/30/19 10:28 Respiratory Rate 18 03/30/19 07:00 Respiratory Effort Non-Labored 03/30/19 10:28 Respiratory Depth Normal 03/30/19 10:28 Respiratory Pattern Normal 03/30/19 10:28 Blood Pressure 172/95 H 03/30/19 07:00 Pulse Oximetry 96 03/30/19 07:00 Oxygen Delivery Method Room Air 03/30/19 07:00 Oxygen Flow Rate 0 03/30/19 07:00 Pain Level 4 03/30/19 12:23 Comment 03/26/19 20:46 Intake & Output 03/29/19 03/30/19 03/30/19 23:59 11:59 23:59 Intake Total 780 / 1460 700 / 700 Output Total 350 / 850 300 / 300 Balance 430 / 610 400 / 400 Weight 149.4 kg Intake: IV 300 / 500 200 / 200 Oral 480 / 960 500 / 500 Output: Urine 350 / 850 300 / 300 Other: Urine Color Yellow Yellow Urine Appearance Clear Clear Comment VOID X 1 IN TOILET voided in toilet and flushed Stool Size Moderate Stool Characteristics Formed Voiding Methods Toilet Urinal Laboratory Results WBC 10.35 k/cumm (4.4-10.8) 03/30/19 06:00 RBC 4.63 m/cumm (4.50-6.00) 03/30/19 06:00 Hgb 13.8 g/dL (13.5-17.5) 03/30/19 06:00 Hct 42.7 % (40.0-50.0) 03/30/19 06:00 MCV 92.2 fL (80-95) 03/30/19 06:00 MCH 29.8 pg (27.0-33.0) 03/30/19 06:00 MCHC 32.3 g/dL (32.0-36.0) 03/30/19 06:00 RDW 14.9 % (11.8-14.1) H 03/30/19 06:00 Plt Count 280 x1000/uL (130-400) 03/30/19 06:00 MPV 8.8 fL (8.0-11.0) 03/30/19 06:00 Immature Gran % See Differential 03/30/19 06:00 Neutrophils % 50.0 03/30/19 06:00 Band Neutrophils % 1.0 % 03/30/19 06:00 Lymphocytes % 26.0 03/30/19 06:00 Atypical Lymphs % 7 03/30/19 06:00 Monocytes % 12.0 03/30/19 06:00 Eosinophils % 0.0 03/30/19 06:00 Basophils % 2.0 03/30/19 06:00 Metamyelocytes % 1.0 % 03/29/19 07:15 Myelocytes % 2.0 % 03/30/19 06:00 Absolute Neutrophils 5.28 k/cumm (1.2-6.7) 03/30/19 06:00 Absolute Lymphocytes 3.42 k/cumm (1.2-3.4) H 03/30/19 06:00 Absolute Monocytes 1.24 k/cumm (0.11-0.7) H 03/30/19 06:00 Absolute Eosinophils 0.00 k/cumm (0.0-0.7) 03/30/19 06:00 Absolute Basophils 0.21 k/cumm (0.0-0.2) H 03/30/19 06:00 Differential Comment Manual differential 03/30/19 06:00 RBC Morphology Normal 03/29/19 07:15 PT 10.6 sec (9.3-11.0) 03/24/19 21:19 INR 1.1 (0.9-1.1) 03/24/19 21:19 APTT 19.4 sec (21.0-31.4) L 03/24/19 21:19 Sodium 142 mmol/L (136-145) 03/30/19 06:00 Potassium 4.0 mmol/L (3.5-5.1) 03/30/19 06:00 Chloride 105 mmol/L (98-107) 03/30/19 06:00 Carbon Dioxide 29.7 mmol/L (21.0-32.0) 03/30/19 06:00 Anion Gap 7.3 mmol/L (3-11) 03/30/19 06:00 BUN 11 mg/dL (7-18) 03/30/19 06:00 Creatinine 0.97 mg/dL (0.70-1.30) 03/30/19 06:00 Estimated GFR/1.73 m2 >= 60.00 (mL/min/1.73m2) 03/30/19 06:00 Glucose 117 mg/dL (74-106) H 03/30/19 06:00 Lactate 1.2 mmol/L (0.6-1.4) 03/28/19 06:45 Calcium 9.2 mg/dL (8.5-10.1) 03/30/19 06:00 Magnesium 1.8 mg/dL (1.8-2.4) 03/30/19 06:00 Total Bilirubin 1.0 mg/dL (0.2-1.0) 03/24/19 21:19 AST 30 U/L (15-37) 03/24/19 21: ALT 51 U/L (16-63) 03/24/19 21:19 Alkaline Phosphatase 64 U/L (46-116) 03/24/19 21:19 Creatine Kinase 246 U/L (39-308) 03/24/19 21:19 C-Reactive Protein 5.16 mg/dL (0.0-0.3) H 03/30/19 06:00 NT-Pro-B Natriuret Pep 99 pg/mL (<300) 03/24/19 21:19 Total Protein 6.9 g/dL (6.4-8.2) 03/24/19 21: Albumin 3.6 g/dL (3.4-5.0) 03/24/19 21:19 Urine Color Yellow (Yellow) 03/24/19 23:25 Urine Clarity Clear (Clear) 03/24/19 23:25 Urine pH 5.5 (5-8) 03/24/19 23:25 Ur Specific [place] 1.010 (1.005-1.025) 03/24/19 23:25 Urine Protein Negative mg/dL (Negative) 03/24/19 23:25 Urine Ketones Negative mg/dL (Negative) 03/24/19 23:25 Urine Blood Negative (Negative) 03/24/19 23: Urine Nitrite Negative (Negative) 03/24/19 23:25 Urine Bilirubin Negative (Negative) 03/24/19 23:25 Urine Urobilinogen 0.2 EU/dL (Up TO 0.2) 03/24/19 23:25 Ur Leukocyte Esterase Negative (Negative) 03/24/19 23:25 Urine Glucose Negative mg/dL (Negative) 03/24/19 23:25 Specimen Type Cancelled 03/24/19 22:07 Vancomycin Trough 10.3 ug/mL (10.0-20.0) 03/26/19 09:20 Influenza Type A IgG >=1:1280 (<1:10) A 03/24/19 21:15 Influenza Type A IgM >=1:10 (<1:10) A 03/24/19 21:15 Influenza Type A RNA Cancelled 03/24/19 22:07 Influenza Type B RNA Cancelled 03/24/19 22:07 RSV RNA Qual (PCR) Cancelled 03/24/19 22:07
[2019-03-30] MEDS: Triamterene 37.5/HCTZ 25 CAP PO (14:24)
--- NOTE | 2019-03-30 14:36 | PDOC.CMPRO ---
- If Service Date Differs Date of service: 03/30/19 Time of Service: 14:36 Care Management Progress Note S/O: Marcin is lying in bed watching television when CM comes to meet with him. He is improving but continues to require IV antibiotics. He talks about volunteering at [employer] in [employer] four days a week and shares his frustration with his inability to obtain social security disability or to find a job. CM will continue to follow. A: Marcin is a 58 year old male admitted to [facility] on 03/24/2019 for sepsis. P: Marcin will return home when medically cleared by provider. Anticipate resumption of [facility] moderate needs and homemaking services at time of discharge. He will either be transported home via private vehicle with a friend or by RCT. CM will continue to follow.
[2019-03-30 16:22] VITALS: BP 145/74; PULSE 79; RESP 18; TEMP 37.4; O2SAT 96
[2019-03-30] MEDS: Carvedilol 6.25 MG TAB PO (20:46)
[2019-03-30 23:43] VITALS: BP 130/67; PULSE 80; RESP 19; TEMP 37.6; O2SAT 93
[2019-03-31] MEDS: Normal Saline Flush 10 ML SYR IVP ×5 (00:03→19:48)
[2019-03-31] MEDS: Penicillin G POT. 3,000,000 UNITS in Normal Saline 50 ML 100 UNITS IVPB ×6 (00:03→19:46)
[2019-03-31] MEDS: CLINDAMYCIN 900 MG/50 ML BAG 50 MG IVPB ×3 (01:25→17:26)
[2019-03-31] MEDS: Acetaminophen 500 MG TAB 1000 MG PO ×2 (04:42→08:43)
[2019-03-31 07:13] LABS: Anion Gap 9.7 mmol/L (3-11); BUN 13 mg/dL (7-18); CO2 26.3 mmol/L (21.0-32.0); CREATININE 0.91 mg/dL (0.70-1.30); Calcium 9.1 mg/dL (8.5-10.1); Chloride 103 mmol/L (98-107); Glucose 119 mg/dL (74-106); Potassium 4.1 mmol/L (3.5-5.1); Sodium 139 mmol/L (136-145)
[2019-03-31 07:18] LABS: Magnesium 1.9 mg/dL (1.8-2.4)
[2019-03-31 07:37] VITALS: BP 152/71; PULSE 73; RESP 19; TEMP 37.1; O2SAT 98
[2019-03-31 08:01] LABS: Procalcitonin 1.9 ng/mL
[2019-03-31] MEDS: Triamterene 37.5/HCTZ 25 CAP PO (08:25)
[2019-03-31] MEDS: Apixaban 5 MG TAB PO ×2 (08:25→19:47)
[2019-03-31] MEDS: Lisinopril 20 MG TAB 40 MG PO (08:25)
[2019-03-31] MEDS: hydrALAZINE 10 MG TAB 30 MG PO ×3 (08:25→19:47)
[2019-03-31] MEDS: Benzonatate 200 MG CAP PO ×3 (08:26→19:47)
[2019-03-31] MEDS: Lactobacillus Acidophilus CAP 1 CAP PO ×2 (08:26→19:47)
[2019-03-31] MEDS: Carvedilol 6.25 MG TAB PO ×2 (08:26→19:46)
[2019-03-31] MEDS: Fluticasone NASAL SPRAY 16 GM BTL NS (08:28)
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
--- NOTE | 2019-03-31 09:30 | DI.US_ITS ---
APPROVED REPORT EXAM: Comprehensive 2D, Doppler, and color-flow Echocardiogram Patient Location: In-Patient Room/Bed: 225a Traffic Agent: Lacey Cuba RDCS (AE) Indications: New heart murmur, group b strep bacteremia Conclusion Left Ventricle : The left ventricle is normal size. The left ventricular systolic function is normal . The posterior wall thickness is mildly increased. The septum is normal. There is normal LV segment al wall motion. The left ventricular diastolic function is normal. LVEF is 60-64%. Right Ventricle : The right ventricle is normal size. The right ventricular systolic function is norm al. Atria : Left atrium is borderline dilated. The right atrium size is normal. Aortic Valve : Aortic valve is trileaflet. No aortic regurgitation is present. No hemodynamically sig nificant aortic stenosis (mean gradient 9 mmHg). Mitral Valve : The mitral valve is normal in structure. There is mitral annular calcification. Trace mitral regurgitation. No evidence of mitral valve stenosis. Tricuspid Valve : The tricuspid valve is normal in structure. Trace tricuspid regurgitation. There is no tricuspid valve stenosis. Great Vessels : The IVC is enlarged with greater than 50% collapse. Estimated RVSP is 32-40 mmHg. There are no valvular vegetations seen. Compared to echocardiogram dated 10/23/2016: There is no longer ventricular septal flattening Wall motion Left Ventricle The left ventricle is normal size. The left ventricular systolic function is normal. The posterior wa ll thickness is mildly increased. The septum is normal. There is normal LV segmental wall motion. The left ventricular diastolic function is normal. LVEF is 60-64%. Right Ventricle The right ventricle is normal size. The right ventricular systolic function is normal. Atria Left atrium is borderline dilated. The right atrium size is normal. Aortic Valve Aortic valve is trileaflet. No hemodynamically significant aortic stenosis (mean gradient 9 mmHg). No aortic regurgitation is present. Mitral Valve The mitral valve is normal in structure. There is mitral annular calcification. No evidence of mitral valve stenosis. Trace mitral regurgitation. Tricuspid Valve The tricuspid valve is normal in structure. There is no tricuspid valve stenosis. Trace tricuspid reg urgitation. Pulmonic Valve Pulmonic valve is not well visualized. There is no pulmonic valvular stenosis. Trace pulmonic regurgi tation. Great Vessels Aortic root is normal in size. The ascending aorta size is normal. The IVC is enlarged with greater t silverio 50% collapse. Estimated RVSP is 32-40 mmHg. Pericardium There is no pericardial effusion. 2D Dimensions IVSd 1.10 cm M: 0.6-1.2 LV EDV A2C 151.9 mL PWd 1.10 cm M: 0.6 - 1.2 LV EDV A4C 96.9 mL LVDd 5.20 cm M: 4.2 - 5.8 LA Volume Index Biplane 33.7 mL/m2 LVDs 3.00 cm M: 2.5 - 4.0 LA Area A4C 23.78 cm2 Aortic Root 3.05 cm M: 3.1 - 3.7 LA Area A2C 25.25 cm2 Left Atrium 3.98 cm M: 3.0 - 4.0 EF AP4 68.6 % RA Area A4C 15.21 cm2 EF AP2 57.6 % LVOT 2.00 cm (M/F) 1.5-2.5 EF BP 62.6 % Ascending Aorta 3.18 cm M: 2.6 - 3.4 IVC 2.33 cm LVEF (Teich) 72.5 % LVEF (Griffin's) 62.62 % M: 52 - 72 LV Volume 87.47 mL M: 62 - 150 LV Volume Index 33.90 mL/m2 M: 34 - 74 FS 41.85 % LV Diastology E Decel Time 240.00 (160-240 msec) E/A Ratio 1.6 MV E' medial 0.104 (>0.07 m/s) LV E/e MED 7.90 (<14) MV E' lateral 0.114 (>0.1 m/s) LV E/e LAT 7.20 (<14) Aortic Valve LVOT Area 3.22 cm2 LVOT Vmax 1.76 m/s LVOT Mean Andrew. 1.12 m/s LVOT Peak Gr. 12.4 mmHg AoV Area Vmax 2.91 cm2 LVOT Mean Gr. 5.9 mmHg AoV Area/ BSA (Vmax) 1.13 cm2/m2 LVOT VTI 0.310 m JOANA Mean Andrew. 0.00 m/s AoV Vmax 1.95 (0.5-1.3 m/s) JOANA Mean Andrew. Index 0.98 cm2/m2 AoV Mean Andrew. 1.42 m/s AoV Peak Grad 15.2 mmHg LVOT SV 99.73 mL AoV Mean Grad 8.8 (<5 mmHg) AoV VTI 0.353 (0.18-0.25 m) AoV Area VTI 2.83 (2.5-4.5 cm2) AoV Area/ BSA (VTI) 1.10 cm/m2 Mitral Valve MV E Max Andrew. 0.82 (0.4-1.3 m/s) MV A Velocity 0.50 (0.4-1.3 m/s) E/A Ratio 1.51 MV Decel. Time 240 (160-240 msec) MV PHT 70 msec MVA PHT 3.15 cm2 Tricuspid Valve TV Regurg Vmax 2.69 m/s RAP Estimate 3.00 mmHg TR P. Gradient 28.9 mmHg RVSP 31.9 mmHg
--- NOTE | 2019-03-31 11:33 | DI.US_ITS ---
EXAM: US SOFT TISSUE EXTREMITY CLINICAL HISTORY: r/o foreign body right plantar foot TECHNIQUE: Ultrasound performed using standard protocol. COMPARISON: No exams were available for comparison FINDINGS: Plantar aspect of the foot was scanned. No foreign body was identified. There is no drainable fluid collection.
--- NOTE | 2019-03-31 12:36 | W.PM.PROGNOT ---
Date of Service Date of service: 03/31/19 Time of Service: 12:36 Assessment and Plan Assessment and plan (1) Sepsis due to group B Streptococcus with acute organ dysfunction: Status: Acute Assessment and plan: Patient should be treated with definitive antibiotics for Group B Strep sepsis for at least 10 days. He intiially recevied Zosyn and Vancomycin for first couple days then was on PCN G but was put Qualifiers: Acute renal failure type: with acute tubular necrosis Severe sepsis acute organ dysfunction type: acute renal failure Severe sepsis shock status: without septic shock Qualified Code(s): A40.1 - Sepsis due to streptococcus, group B; R65.20 - Severe sepsis without septic shock; N17.0 - Acute kidney failure with tubular necrosis (2) Cellulitis of right lower leg: Status: Acute Assessment and plan: Continue antibiotics as above with monitoring of renal function CBC CRP and procalcitonin. Repeat blood cultures is pending. Continue elevation and Horacio wraps. (3) Hypertension: Status: Chronic Assessment and plan: DC Norvasc and initiate carvedilol and Dyazide. Monitor renal function. Continue lisinopril. Qualifiers: Hypertension type: essential hypertension Qualified Code(s): I10 - Essential (primary) hypertension (4) Lymphedema: Status: None Assessment and plan: Horacio wraps elevation and diuretics as above. (5) Obstructive sleep apnea: Status: Chronic Assessment and plan: Continue use of CPAP at night. Subjective Subjective Interval history since last seen: Day #7 of parenteral antibiotics (first two days included Zosyn and Vancomycin; he has been on Pcn G high dose and Clindamycin since 03/28/2019) Overall patient states he is feeling better. He remains afebrile. Leg erythema has improved. Dr. Bradford saw the patient today and debrided his foot wound. Ultrasound of his foot was performed and showed no foreign body and no drainable fluid collection.Echocardiogram was performed and showed normal left ventricular systolic size and function with no wall motion abnormalities and no diastolic dysfunction. Ejection fraction 6064% right ventricular size and function was normal. He had no hemodynamic significant valvular abnormalities and no valvular vegetations. Exam Narrative Exam Narrative: Lower extremities are edematous with the right leg more edematous than the left. The mid tibia is less intensely red and no longer tender to the touch and nor is it warm. The area of erythema has significantly receded from its peak which was just below the patella. It is more intensely erythematous over the posterior calf and still warm and tender over this area. The right foot wound is shallow about size of a dime with some white eschar around the shallow ulcer. Objective Objective Clinical Data: Abnormal lab results 03/31/19 03/31/19 Range/Units 06:28 06:28 Glucose 119 H (74-106) mg/dL C-Reactive Protein 6.40 H (0.0-0.3) mg/dL Vital Signs Temperature 37.1 C 03/31/19 07:37 Temperature Source Tympanic 03/31/19 07:37 Pulse 73 03/31/19 07:37 Pulse Rhythm Regular 03/31/19 02:26 Respiratory Rate 19 03/31/19 07:37 Respiratory Effort Non-Labored 03/31/19 02:26 Respiratory Depth Normal 03/31/19 02:26 Respiratory Pattern Normal 03/31/19 02:26 Blood Pressure 152/71 H 03/31/19 07:37 Pulse Oximetry 98 03/31/19 07:37 Oxygen Delivery Method Room Air 03/31/19 07:37 Oxygen Flow Rate 0 03/31/19 07:37 Pain Level 6 03/31/19 08:43 Comment 03/26/19 20:46 Intake & Output 03/30/19 03/31/19 03/31/19 23:59 11:59 23:59 Intake Total 440 / 1190 230 / 230 Balance 440 / 890 230 / 230 Weight 148.2 kg Intake: IV 200 / 450 230 / 230 Oral 240 / 740 Other: Urine Appearance Clear Clear Voiding Methods Toilet Laboratory Results WBC 10.35 k/cumm (4.4-10.8) 03/30/19 06:00 RBC 4.63 m/cumm (4.50-6.00) 03/30/19 06:00 Hgb 13.8 g/dL (13.5-17.5) 03/30/19 06:00 Hct 42.7 % (40.0-50.0) 03/30/19 06:00 MCV 92.2 fL (80-95) 03/30/19 06:00 MCH 29.8 pg (27.0-33.0) 03/30/19 06:00 MCHC 32.3 g/dL (32.0-36.0) 03/30/19 06:00 RDW 14.9 % (11.8-14.1) H 03/30/19 06:00 Plt Count 280 x1000/uL (130-400) 03/30/19 06:00 MPV 8.8 fL (8.0-11.0) 03/30/19 06:00 Immature Gran % See Differential 03/30/19 06:00 Neutrophils % 50.0 03/30/19 06:00 Band Neutrophils % 1.0 % 03/30/19 06:00 Lymphocytes % 26.0 03/30/19 06:00 Atypical Lymphs % 7 03/30/19 06:00 Monocytes % 12.0 03/30/19 06:00 Eosinophils % 0.0 03/30/19 06:00 Basophils % 2.0 03/30/19 06:00 Metamyelocytes % 1.0 % 03/29/19 07:15 Myelocytes % 2.0 % 03/30/19 06:00 Absolute Neutrophils 5.28 k/cumm (1.2-6.7) 03/30/19 06:00 Absolute Lymphocytes 3.42 k/cumm (1.2-3.4) H 03/30/19 06:00 Absolute Monocytes 1.24 k/cumm (0.11-0.7) H 03/30/19 06:00 Absolute Eosinophils 0.00 k/cumm (0.0-0.7) 03/30/19 06:00 Absolute Basophils 0.21 k/cumm (0.0-0.2) H 03/30/19 06:00 Differential Comment Manual differential 03/30/19 06:00 RBC Morphology Normal 03/29/19 07:15 PT 10.6 sec (9.3-11.0) 03/24/19 21:19 INR 1.1 (0.9-1.1) 03/24/19 21:19 APTT 19.4 sec (21.0-31.4) L 03/24/19 21:19 Sodium 139 mmol/L (136-145) 03/31/19 06:28 Potassium 4.1 mmol/L (3.5-5.1) 03/31/19 06:28 Chloride 103 mmol/L (98-107) 03/31/19 06:28 Carbon Dioxide 26.3 mmol/L (21.0-32.0) 03/31/19 06:28 Anion Gap 9.7 mmol/L (3-11) 03/31/19 06:28 BUN 13 mg/dL (7-18) 03/31/19 06:28 Creatinine 0.91 mg/dL (0.70-1.30) 03/31/19 06:28 Estimated GFR/1.73 m2 >= 60.00 (mL/min/1.73m2) 03/31/19 06:28 Glucose 119 mg/dL (74-106) H 03/31/19 06:28 Lactate 1.2 mmol/L (0.6-1.4) 03/28/19 06:45 Calcium 9.1 mg/dL (8.5-10.1) 03/31/19 06:28 Magnesium 1.9 mg/dL (1.8-2.4) 03/31/19 06:28 Total Bilirubin 1.0 mg/dL (0.2-1.0) 03/24/19 21:19 AST 30 U/L (15-37) 03/24/19 21:19 ALT 51 U/L (16-63) 03/24/19 21:19 Alkaline Phosphatase 64 U/L (46-116) 03/24/19 21:19 Creatine Kinase 246 U/L (39-308) 03/24/19 21:19 C-Reactive Protein 6.40 mg/dL (0.0-0.3) H 03/31/19 06:28 NT-Pro-B Natriuret Pep 99 pg/mL (<300) 03/24/19 21:19 Total Protein 6.9 g/dL (6.4-8.2) 03/24/19 21:19 Albumin 3.6 g/dL (3.4-5.0) 03/24/19 21:19 Procalcitonin 1.9 ng/mL 03/31/19 06:28 Urine Color Yellow (Yellow) 03/24/19 23:25 Urine Clarity Clear (Clear) 03/24/19 23:25 Urine pH 5.5 (5-8) 03/24/19 23:25 Ur Specific [place] 1.010 (1.005-1.025) 03/24/19 23:25 Urine Protein Negative mg/dL (Negative) 03/24/19 23:25 Urine Ketones Negative mg/dL (Negative) 03/24/19 23:25 Urine Blood Negative (Negative) 03/24/19 23:25 Urine Nitrite Negative (Negative) 03/24/19 23:25 Urine Bilirubin Negative (Negative) 03/24/19 23:25 Urine Urobilinogen 0.2 EU/dL (Up TO 0.2) 03/24/19 23:25 Ur Leukocyte Esterase Negative (Negative) 03/24/19 23:25 Urine Glucose Negative mg/dL (Negative) 03/24/19 23:25 Specimen Type Cancelled 03/24/19 22:07 Vancomycin Trough 10.3 ug/mL (10.0-20.0) 03/26/19 09:20 Influenza Type A IgG >=1:1280 (<1:10) A 03/24/19 21:15 Influenza Type A IgM >=1:10 (<1:10) A 03/24/19 21:15 Influenza Type A RNA Cancelled 03/24/19 22:07 Influenza Type B RNA Cancelled 03/24/19 22:07 RSV RNA Qual (PCR) Cancelled 03/24/19 22:07
[2019-03-31 16:20] VITALS: BP 117/64; PULSE 74; RESP 20; TEMP 37; O2SAT 96
--- NOTE | 2019-03-31 16:58 | CMPROGNOTE_ITS ---
- If Service Date Differs Date of service: 03/31/19 Time of Service: 16:58 Care Management Progress Note S/O: Marcin was sitting up in a chair when CM met with him. He was friendly and very talkative, sharing the history of his current illness from 03/04/19 until he was admitted, in great detail. Marcin also discussed current [facility] services he receives and what additional supports he feels he may need. He stated that he feels he will need someone to do his grocery shopping and also HH nursing for wound care and assistance with applying the abhinav bandages to his legs. A: Marcin is a 58 year old male admitted to [facility] on 03/24/2019 for sepsis. P: Marcin will return home when medically cleared by provider. Anticipate resumption of [facility] moderate needs and homemaking services at time of discharge. Marcin may also need new HH nursing to assist with wound care and bandage wrapping of his legs. He may also benefit from HH PT for lymphedema therapy when the infection is under control. He will either be transported home via private vehicle with a friend or by [facility]. CM will continue to support patient and discharge planning concerns.
[2019-03-31] MEDS: guaiFENesin 600 MG TABCR PO (17:26)
[2019-03-31 19:31] VITALS: BP 135/69; PULSE 82; RESP 18; TEMP 37; O2SAT 96
[2019-04-01] MEDS: Penicillin G POT. 3,000,000 UNITS in Normal Saline 50 ML 100 UNITS IVPB ×7 (00:03→23:49)
[2019-04-01] MEDS: Normal Saline Flush 10 ML SYR IVP ×2 (00:04→18:16)
[2019-04-01] MEDS: guaiFENesin 600 MG TABCR PO ×2 (00:04→14:46)
[2019-04-01 00:12] VITALS: BP 126/70; PULSE 78; RESP 16; TEMP 37.3; O2SAT 94
[2019-04-01] MEDS: CLINDAMYCIN 900 MG/50 ML BAG 50 MG IVPB ×3 (02:24→18:16)
[2019-04-01 07:10] VITALS: BP 161/82; PULSE 79; RESP 19; TEMP 37.1; O2SAT 98
[2019-04-01] MEDS: Carvedilol 6.25 MG TAB PO ×2 (07:40→20:30)
[2019-04-01] MEDS: Lactobacillus Acidophilus CAP 1 CAP PO ×2 (07:40→20:30)
[2019-04-01] MEDS: Benzonatate 200 MG CAP PO ×3 (07:40→20:30)
[2019-04-01 07:41] LABS: Anion Gap 10.5 mmol/L (3-11); BUN 16 mg/dL (7-18); CO2 26.5 mmol/L (21.0-32.0); CREATININE 0.96 mg/dL (0.70-1.30); Chloride 103 mmol/L (98-107); Glucose 116 mg/dL (74-106); Potassium 4.1 mmol/L (3.5-5.1); Sodium 140 mmol/L (136-145)
[2019-04-01] MEDS: hydrALAZINE 10 MG TAB 30 MG PO ×3 (07:41→20:30)
[2019-04-01] MEDS: Apixaban 5 MG TAB PO ×2 (07:42→20:30)
[2019-04-01] MEDS: Lisinopril 20 MG TAB 40 MG PO (07:42)
[2019-04-01 08:03] LABS: Magnesium 2.1 mg/dL (1.8-2.4)
[2019-04-01] MEDS: Acetaminophen 500 MG TAB 1000 MG PO ×2 (08:05→20:30)
[2019-04-01 08:11] LABS: C-Reactive Protein 6.55 mg/dL (0.0-0.3)
[2019-04-01 15:59] VITALS: BP 151/78; PULSE 77; RESP 20; TEMP 36.3; O2SAT 99
--- NOTE | 2019-04-01 18:00 | PGE_ITS ---
Date of Service Date of service: 04/01/19 Time of Service: 16:45 Assessment and Plan Assessment and plan (1) Sepsis due to group B Streptococcus with acute organ dysfunction: Status: Acute Assessment and plan: Repeat blood cultures 12/29/19 negative - official 1st day of IV antibiotics. Source - RLE wound. Continue [place] G + clindamycin. I think it is hard to know the duration of antibiotics in this patient due to his lymphedema, which complicates therapy. Continue wound care. Qualifiers: Severe sepsis acute organ dysfunction type: acute renal failure Acute renal failure type: with acute tubular necrosis Severe sepsis shock status: without septic shock Qualified Code(s): A40.1 - Sepsis due to streptococcus, group B; R65.20 - Severe sepsis without septic shock; N17.0 - Acute kidney failu re with tubular necrosis (2) Cellulitis of right lower leg: Status: Acute Assessment and plan: As above (3) Hypertension: Status: Chronic Assessment and plan: Patient has specifically declined HCTZ - triameterene. We are verifying his medication reconcilliation. Continue coreg and lisinopril. Qualifiers: Hypertension type: essential hypertension Qualified Code(s): I10 - Essential (primary) hypertension (4) Lymphedema: Status: None Assessment and plan: As above. Would eventually benefit from lymphedema therapy. (5) Obstructive sleep apnea: Status: Chronic Assessment and plan: Continue CPAP (6) DVT prophylaxis: Status: Acute Assessment and plan: Continue therapeutic eliquis (7) Discharge planning issues: Status: Acute Assessment and plan: Full code Subjective Subjective Interval history since last seen: The patient states that he is not dizzy, denies chest pain, shortness of breath.Endorses a nonproductive cough - ever since the cut on his leg, he states - that has been improving with mucinex. Denies n/v. Unfortunately, I did not get to see his leg today because it had been recently rewrapped, but we agreed that I will look at it tomorrow. His request is that, when he is ready, we transition him or at least consider unna boots, with which he is familiar. He is very firm that dry sterile dressing just gets stuck and is very painful for him. He is willing to consider non- adherent dressing. Exam Narrative Exam Narrative: General: Pleasant obese male, sitting comfortably in a chair, A&Ox3, having dinner HEENT: EOMI, MMM Heart: RRR, no m/r/g Lungs: CTAB; dry cough Abdomen: soft, nontender, nondistended Extremities: BLE lymphedema; wrapped in abhinav-bandages Objective Objective Clinical Data: Abnormal lab results 04/01/19 04/01/19 Range/Units 06:38 06:38 Glucose 116 H (74-106) mg/dL C-Reactive Protein 6.55 H (0.0-0.3) mg/dL Vital Signs Temperature 36.3 C L 04/01/19 15:59 Temperature Source Tympanic 04/01/19 15:59 Pulse 77 04/01/19 15:59 Pulse Rhythm Regular 04/01/19 16:15 Respiratory Rate 20 04/01/19 15:59 Respiratory Effort 04/01/19 16:15 Respiratory Depth Normal 04/01/19 16:15 Respiratory Pattern Normal 04/01/19 16:15 Blood Pressure 151/78 H 04/01/19 15:59 Pulse Oximetry 99 04/01/19 15:59 Oxygen Delivery Method Room Air 04/01/19 15:59 Oxygen Flow Rate 0 04/01/19 15:59 Pain Level 5 04/01/19 08:05 Comment 03/26/19 20:46 Intake & Output 03/31/19 04/01/19 04/01/19 23:59 11:59 23:59 Intake Total 1250 / 1970 600 / 660 60 / 660 Output Total 400 / 400 Balance 850 / 1570 600 / 660 60 / 660 Intake: IV 260 / 490 200 / 260 60 / 260 Oral 990 / 1480 400 / 400 Output: Urine 400 / 400 Other: Urine Color Yellow Urine Appearance Cloudy Clear Clear Urine Odor Normal Comment Patient voiding ad jeffery in toilet per patient Stool Size Moderate Voiding Methods Urinal Toilet Laboratory Results WBC 10.35 k/cumm (4.4-10.8) 03/30/19 06:00 RBC 4.63 m/cumm (4.50-6.00) 03/30/19 06:00 Hgb 13.8 g/dL (13.5-17.5) 03/30/19 06:00 Hct 42.7 % (40.0-50.0) 03/30/19 06:00 MCV 92.2 fL (80-95) 03/30/19 06:00 MCH 29.8 pg (27.0-33.0) 03/30/19 06:00 MCHC 32.3 g/dL (32.0-36.0) 03/30/19 06:00 RDW 14.9 % (11.8-14.1) H 03/30/19 06:00 Plt Count 280 x1000/uL (130-400) 03/30/19 06:00 MPV 8.8 fL (8.0-11.0) 03/30/19 06:00 Immature Gran % See Differential 03/30/19 06:00 Neutrophils % 50.0 03/30/19 06:00 Band Neutrophils % 1.0 % 03/30/19 06:00 Lymphocytes % 26.0 03/30/19 06:00 Atypical Lymphs % 7 03/30/19 06:00 Monocytes % 12.0 03/30/19 06:00 Eosinophils % 0.0 03/30/19 06:00 Basophils % 2.0 03/30/19 06:00 Metamyelocytes % 1.0 % 03/29/19 07:15 Myelocytes % 2.0 % 03/30/19 06:00 Absolute Neutrophils 5.28 k/cumm (1.2-6.7) 03/30/19 06:00 Absolute Lymphocytes 3.42 k/cumm (1.2-3.4) H 03/30/19 06:00 Absolute Monocytes 1.24 k/cumm (0.11-0.7) H 03/30/19 06:00 Absolute Eosinophils 0.00 k/cumm (0.0-0.7) 03/30/19 06:00 Absolute Basophils 0.21 k/cumm (0.0-0.2) H 03/30/19 06:00 Differential Comment Manual differential 03/30/19 06:00 RBC Morphology Normal 03/29/19 07:15 PT 10.6 sec (9.3-11.0) 03/24/19 21:19 INR 1.1 (0.9-1.1) 03/24/19 21:19 APTT 19.4 sec (21.0-31.4) L 03/24/19 21:19 Sodium 140 mmol/L (136-145) 04/01/19 06:38 Potassium 4.1 mmol/L (3.5-5.1) 04/01/19 06:38 Chloride 103 mmol/L (98-107) 04/01/19 06:38 Carbon Dioxide 26.5 mmol/L (21.0-32.0) 04/01/19 06:38 Anion Gap 10.5 mmol/L (3-11) 04/01/19 06:38 BUN 16 mg/dL (7-18) 04/01/19 06:38 Creatinine 0.96 mg/dL (0.70-1.30) 04/01/19 06:38 Estimated GFR/1.73 m2 >= 60.00 (mL/min/1.73m2) 04/01/19 06:38 Glucose 116 mg/dL (74-106) H 04/01/19 06:38 Lactate 1.2 mmol/L (0.6-1.4) 03/28/19 06:45 Calcium 9.0 mg/dL (8.5-10.1) 04/01/19 06:38 Magnesium 2.1 mg/dL (1.8-2.4) 04/01/19 06:38 Total Bilirubin 1.0 mg/dL (0.2-1.0) 03/24/19 21:19 AST 30 U/L (15-37) 03/24/19 21:19 ALT 51 U/L (16-63) 03/24/19 21:19 Alkaline Phosphatase 64 U/L (46-116) 03/24/19 21:19 Creatine Kinase 246 U/L (39-308) 03/24/19 21:19 C-Reactive Protein 6.55 mg/dL (0.0-0.3) H 04/01/19 06:38 NT-Pro-B Natriuret Pep 99 pg/mL (<300) 03/24/19 21:19 Total Protein 6.9 g/dL (6.4-8.2) 03/24/19 21:19 Albumin 3.6 g/dL (3.4-5.0) 03/24/19 21:19 Procalcitonin 1.9 ng/mL 03/31/19 06:28 Urine Color Yellow (Yellow) 03/24/19 23:25 Urine Clarity Clear (Clear) 03/24/19 23:25 Urine pH 5.5 (5-8) 03/24/19 23:25 Ur Specific [place] 1.010 (1.005-1.025) 03/24/19 23:25 Urine Protein Negative mg/dL (Negative) 03/24/19 23:25 Urine Ketones Negative mg/dL (Negative) 03/24/19 23:25 Urine Blood Negative (Negative) 03/24/19 23: Urine Nitrite Negative (Negative) 03/24/19 23: Urine Bilirubin Negative (Negative) 03/24/19 23: Urine Urobilinogen 0.2 EU/dL (Up TO 0.2) 03/24/19 23:25 Ur Leukocyte Esterase Negative (Negative) 03/24/19 23:25 Urine Glucose Negative mg/dL (Negative) 03/24/19 23:25 Specimen Type Cancelled 03/24/19 22:07 Vancomycin Trough 10.3 ug/mL (10.0-20.0) 03/26/19 09:20 Influenza Type A IgG >=1:1280 (<1:10) A 03/24/19 21:15 Influenza Type A IgM >=1:10 (<1:10) A 03/24/19 21:15 Influenza Type A RNA Cancelled 03/24/19 22:07 Influenza Type B RNA Cancelled 03/24/19 22:07 RSV RNA Qual (PCR) Cancelled 03/24/19 22:07
--- NOTE | 2019-04-01 19:08 | PDOC.CMPRO ---
- If Service Date Differs Date of service: 04/01/19 Time of Service: 19:08 Care Management Progress Note S/O: Marcin was visiting with a friend when CM attempted to meet with him. Per RN and provider, no changes to his plan. CM will continue to follow. A: Marcin is a 58 year old male admitted to [facility] on 03/24/2019 for sepsis. P: Marcin will return home when medically cleared by provider. Anticipate resumption of [facility] moderate needs and homemaking services at time of discharge. Marcin may also need new nursing to assist with wound care and bandage wrapping of his legs. He may also benefit from HH PT for lymphedema therapy when the infection is under control. He will either be transported home via private vehicle with a friend or by [facility]. CM will continue to support patient and discharge planning concerns.
[2019-04-01 20:49] VITALS: BP 131/64; PULSE 87; RESP 20; TEMP 37.5; O2SAT 94
[2019-04-01 23:18] VITALS: BP 123/63; PULSE 84; RESP 18; TEMP 37.3; O2SAT 97
[2019-04-02] MEDS: Normal Saline Flush 10 ML SYR IVP ×3 (02:16→23:53)
[2019-04-02] MEDS: CLINDAMYCIN 900 MG/50 ML BAG 50 MG IVPB ×3 (02:17→18:36)
[2019-04-02] MEDS: Acetaminophen 500 MG TAB 1000 MG PO (03:30)
[2019-04-02] MEDS: Penicillin G POT. 3,000,000 UNITS in Normal Saline 50 ML 100 UNITS IVPB ×6 (03:31→23:52)
[2019-04-02 07:20] LABS: Anion Gap 9.1 mmol/L (3-11); BUN 17 mg/dL (7-18); C-Reactive Protein 3.63 mg/dL (0.0-0.3); CO2 23.9 mmol/L (21.0-32.0); CREATININE 0.98 mg/dL (0.70-1.30); Calcium 8.6 mg/dL (8.5-10.1); Chloride 106 mmol/L (98-107); Glucose 131 mg/dL (74-106); Magnesium 2.1 mg/dL (1.8-2.4); Potassium 4.5 mmol/L (3.5-5.1); Sodium 139 mmol/L (136-145)
[2019-04-02 07:37] LABS: Abs Immature Grans 0.39 k/cumm (0.0-0.09); Absolute Basophil Count 0.04 k/cumm (0.0-0.2); Absolute Eosinophil Count 0.17 k/cumm (0.0-0.7); Absolute Lymphocyte Count 2.62 k/cumm (1.2-3.4); Absolute Neutrophil Count 6.72 k/cumm (1.2-6.7); Basophils % 0.4; Eosinophils % 1.6; HCT 41.3 % (40.0-50.0); HGB 13.4 g/dL (13.5-17.5); Immature Grans % 3.6 %; Lymphocytes % 24.4; Mean Corp. HGB Concentration 32.4 g/dL (32.0-36.0); Mean Corpuscular Hemoglobin 30.2 pg (27.0-33.0); Mean Platelet Volume 8.6 fL (8.0-11.0); Monocytes % 7.4; Neutrophils % 62.6; Platelet Count 316 x1000/uL (130-400); RBC 4.44 m/cumm (4.50-6.00); RBC Distribution Width 14.7 % (11.8-14.1); White Blood Cell Count 10.74 k/cumm (4.4-10.8)
[2019-04-02] MEDS: hydrALAZINE 10 MG TAB 30 MG PO ×3 (09:50→20:21)
[2019-04-02] MEDS: Lactobacillus Acidophilus CAP 1 CAP PO (09:50)
[2019-04-02] MEDS: Carvedilol 6.25 MG TAB PO ×2 (09:50→20:21)
[2019-04-02] MEDS: Benzonatate 200 MG CAP PO ×3 (09:50→20:21)
[2019-04-02] MEDS: Lisinopril 20 MG TAB 40 MG PO (09:50)
[2019-04-02] MEDS: Apixaban 5 MG TAB PO ×2 (09:56→20:21)
[2019-04-02 10:03] VITALS: BP 125/68; PULSE 89; RESP 18; TEMP 37.1; O2SAT 98
--- NOTE | 2019-04-02 12:43 | W.PM.PROGNOT ---
Date of Service Date of service: 04/02/19 Time of Service: 12:48 Assessment and Plan Assessment and plan (1) Sepsis due to group B Streptococcus with acute organ dysfunction: Status: Acute Assessment and plan: Repeat blood cultures 12/29/19 negative - official 1st day of IV antibiotics (Penicillin G + clindamycin Day 4). Source - RLE wound. Continue current abx - CRP is markedly better today. Continue wound care. Add diuretics to help with lymphedema, which should improve healing. Qualifiers: Severe sepsis acute organ dysfunction type: acute renal failure Acute renal failure type: with acute tubular necrosis Severe sepsis shock status: without septic shock Qualified Code(s): A40.1 - Sepsis due to streptococcus, group B; R65.20 - Severe sepsis without septic shock; N17.0 - Acute kidney failure with tubular necrosis (2) Cellulitis of right lower leg: Status: Acute Assessment and plan: As above (3) Hypertension: Status: Chronic Assessment and plan: Patient has specifically declined HCTZ - triameterene. Will put on lasix - not so much for the BP effect but for help with lymphedema. Continue coreg and lisinopril. Qualifiers: Hypertension type: essential hypertension Qualified Code(s): I10 - Essential (primary) hypertension (4) Lymphedema: Status: None Assessment and plan: As above. Continue compression wraps and start lasix. Would eventually benefit from lymphedema therapy. (5) Obstructive sleep apnea: Status: Chronic Assessment and plan: Continue CPAP (6) DVT prophylaxis: Status: Acute Assessment and plan: Continue therapeutic eliquis (7) Discharge planning issues: Status: Acute Assessment and plan: Full code Subjective Subjective Interval history since last seen: Mr Myrick feels states his leg is doing better. It is less red and less swollen. He does not want to take dyazide because he had taken it before and it had caused him side effects. Agrees to take lasix, but not on permanent basis. Denies dizziness, chest pain, shortness of breath, nausea, vomiting. Exam Narrative Exam Narrative: General: Pleasant obese male, sitting comfortably in a chair, A&Ox3, having dinner, sounds like he has nasal congestion HEENT: EOMI, MMM Heart: RRR, no m/r/g Lungs: CTAB; dry cough Abdomen: soft, nontender, nondistended Extremities: BLE lymphedema - seen today with dressing off. RLE > LLE in diameter; erythema below previoulsy circuscribed border; weeping medially - yellowish crust. R foot with a wound about 1 cm in diameter on plantar surface, no purulent drainage, clear borders. Objective Objective Clinical Data: Abnormal lab results 04/02/19 04/02/19 Range/Units 07:00 07:00 RBC 4.44 L (4.50-6.00) m/cumm Hgb 13.4 L (13.5-17.5) g/dL RDW 14.7 H (11.8-14.1) % Absolute Neutrophils 6.72 H (1.2-6.7) k/cumm Absolute Monocytes 0.80 H (0.11-0.7) k/cumm Glucose 131 H (74-106) mg/dL C-Reactive Protein 3.63 H (0.0-0.3) mg/dL Vital Signs Temperature 37.1 C 04/02/19 10:03 Temperature Source Tympanic 04/02/19 10:03 Pulse 89 04/02/19 10:03 Pulse Rhythm Regular 04/01/19 23:18 Respiratory Rate 18 04/02/19 10:03 Respiratory Effort Non-Labored 04/01/19 23:18 Respiratory Depth Normal 04/01/19 23:18 Respiratory Pattern Normal 04/01/19 23:18 Blood Pressure 125/68 04/02/19 10:03 Pulse Oximetry 98 04/02/19 10:03 Oxygen Delivery Method Room Air 04/02/19 10:03 Oxygen Flow Rate 0 04/02/19 10:03 Pain Level 0 04/02/19 10:03 Comment 03/26/19 20:46 Intake & Output 04/01/19 04/02/19 04/02/19 23:59 11:59 23:59 Intake Total 530 / 1670 1630 / 1630 Balance 530 / 1670 1630 / 1630 Weight 148.7 kg Intake: IV 230 / 480 150 / 150 Oral 300 / 1190 1480 / 1480 Other: Urine Appearance Clear Comment Voiding ad jeffery, no urinary complaints at this time Voiding Methods Toilet Laboratory Results WBC 10.74 k/cumm (4.4-10.8) 04/02/19 07:00 RBC 4.44 m/cumm (4.50-6.00) L 04/02/19 07:00 Hgb 13.4 g/dL (13.5-17.5) L 04/02/19 07:00 Hct 41.3 % (40.0-50.0) 04/02/19 07:00 MCV 93.0 fL (80-95) 04/02/19 07:00 MCH 30.2 pg (27.0-33.0) 04/02/19 07:00 MCHC 32.4 g/dL (32.0-36.0) 04/02/19 07:00 RDW 14.7 % (11.8-14.1) H 04/02/19 07:00 Plt Count 316 x1000/uL (130-400) 04/02/19 07:00 MPV 8.6 fL (8.0-11.0) 04/02/19 07:00 Immature Gran % 3.6 % 04/02/19 07:00 Neutrophils % 62.6 04/02/19 07:00 Band Neutrophils % 1.0 % 03/30/19 06:00 Lymphocytes % 24.4 04/02/19 07:00 Atypical Lymphs % 7 03/30/19 06:00 Monocytes % 7.4 04/02/19 07:00 Eosinophils % 1.6 04/02/19 07:00 Basophils % 0.4 04/02/19 07:00 Metamyelocytes % 1.0 % 03/29/19 07:15 Myelocytes % 2.0 % 03/30/19 06:00 Absolute Neutrophils 6.72 k/cumm (1.2-6.7) H 04/02/19 07:00 Absolute Lymphocytes 2.62 k/cumm (1.2-3.4) 04/02/19 07:00 Absolute Monocytes 0.80 k/cumm (0.11-0.7) H 04/02/19 07:00 Absolute Eosinophils 0.17 k/cumm (0.0-0.7) 04/02/19 07:00 Absolute Basophils 0.04 k/cumm (0.0-0.2) 04/02/19 07:00 Differential Comment Manual differential 03/30/19 06:00 RBC Morphology Normal 03/29/19 07:15 PT 10.6 sec (9.3-11.0) 03/24/19 21: INR 1.1 (0.9-1.1) 03/24/19 21: APTT 19.4 sec (21.0-31.4) L 03/24/19 21:19 Sodium 139 mmol/L (136-145) 04/02/19 07:00 Potassium 4.5 mmol/L (3.5-5.1) 04/02/19 07:00 Chloride 106 mmol/L (98-107) 04/02/19 07:00 Carbon Dioxide 23.9 mmol/L (21.0-32.0) 04/02/19 07:00 Anion Gap 9.1 mmol/L (3-11) 04/02/19 07:00 BUN 17 mg/dL (7-18) 04/02/19 07:00 Creatinine 0.98 mg/dL (0.70-1.30) 04/02/19 07:00 Estimated GFR/1.73 m2 >= 60.00 (mL/min/1.73m2) 04/02/19 07:00 Glucose 131 mg/dL (74-106) H 04/02/19 07:00 Lactate 1.2 mmol/L (0.6-1.4) 03/28/19 06:45 Calcium 8.6 mg/dL (8.5-10.1) 04/02/19 07:00 Magnesium 2.1 mg/dL (1.8-2.4) 04/02/19 07:00 Total Bilirubin 1.0 mg/dL (0.2-1.0) 03/24/19 21: AST 30 U/L (15-37) 03/24/19 21: ALT 51 U/L (16-63) 03/24/19 21: Alkaline Phosphatase 64 U/L (46-116) 03/24/19 21: Creatine Kinase 246 U/L (39-308) 03/24/19 21: C-Reactive Protein 3.63 mg/dL (0.0-0.3) H 04/02/19 07:00 NT-Pro-B Natriuret Pep 99 pg/mL (<300) 03/24/19 21: Total Protein 6.9 g/dL (6.4-8.2) 01/10/20 21:19 Albumin 3.6 g/dL (3.4-5.0) 03/24/19 21:19 Procalcitonin 1.9 ng/mL 03/31/19 06:28 Urine Color Yellow (Yellow) 03/24/19 23:25 Urine Clarity Clear (Clear) 03/24/19 23:25 Urine pH 5.5 (5-8) 03/24/19 23:25 Ur Specific [place] 1.010 (1.005-1.025) 03/24/19 23:25 Urine Protein Negative mg/dL (Negative) 03/24/19 23:25 Urine Ketones Negative mg/dL (Negative) 03/24/19 23: Urine Blood Negative (Negative) 03/24/19 23: Urine Nitrite Negative (Negative) 03/24/19 23: Urine Bilirubin Negative (Negative) 03/24/19 23: Urine Urobilinogen 0.2 EU/dL (Up TO 0.2) 03/24/19 23:25 Ur Leukocyte Esterase Negative (Negative) 03/24/19 23:25 Urine Glucose Negative mg/dL (Negative) 03/24/19 23:25 Specimen Type Cancelled 03/24/19 22:07 Vancomycin Trough 10.3 ug/mL (10.0-20.0) 03/26/19 09:20 Influenza Type A IgG >=1:1280 (<1:10) A 03/24/19 21:15 Influenza Type A IgM >=1:10 (<1:10) A 03/24/19 21:15 Influenza Type A RNA Cancelled 03/24/19 22:07 Influenza Type B RNA Cancelled 03/24/19 22:07 RSV RNA Qual (PCR) Cancelled 03/24/19 22:07
[2019-04-02] MEDS: Furosemide 20 MG TAB PO (16:30)
[2019-04-02] MEDS: guaiFENesin 600 MG TABCR PO (16:37)
[2019-04-02 17:17] VITALS: BP 122/71; PULSE 78; RESP 18; TEMP 37; O2SAT 98
[2019-04-02 20:27] VITALS: BP 136/71; PULSE 80; RESP 18; TEMP 37.1; O2SAT 94
--- NOTE | 2019-04-02 21:13 | CMPROGNOTE_ITS ---
- If Service Date Differs Date of service: 04/02/19 Time of Service: 21:13 Care Management Progress Note S/O: Marcin was sitting up in his chair when CM met with him. He reported that he was feeling better, and he feels his symptoms are improving. CM discussed options with Marcin, as he may need IV abx for at least 10 days, per provider. He is currently on day 4. 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 He is concerned that, per the guidelines of the program, if he is absent for 30 days he will lose his funding. He needs to be available for training at the [facility] for 20 hours a week. CM advised that if he transitions to SWB status, he will be able to leave the hospital in between treatments. He reports that he hopes that he will be finished with his treatment prior to his 30 day deadline, but that he will consider options once his abx course is decided by his provider. CM will continue to follow. A: Marcin is a 58 year old male admitted to [facility] on 03/24/2019 for sepsis. P: Marcin will return home when medically cleared by provider. Anticipate resumption of [facility] moderate needs and homemaking services at time of discharge. Marcin may also need new HH nursing to assist with wound care and bandage wrapping of his legs. He may also benefit from HH PT for lymphedema therapy when the infection is under control. He will either be transported home via private vehicle with a friend or by [facility]. CM will continue to support patient and discharge planning concerns.
[2019-04-03 00:01] VITALS: BP 136/71; PULSE 88; RESP 18; TEMP 36.8; O2SAT 96
[2019-04-03] MEDS: CLINDAMYCIN 900 MG/50 ML BAG 50 MG IVPB ×3 (02:15→17:55)
[2019-04-03] MEDS: Penicillin G POT. 3,000,000 UNITS in Normal Saline 50 ML 100 UNITS IVPB ×6 (03:30→23:37)
[2019-04-03 07:15] VITALS: BP 138/72; PULSE 75; RESP 20; TEMP 37.2
[2019-04-03] MEDS: hydrALAZINE 10 MG TAB 30 MG PO ×3 (07:52→19:56)
[2019-04-03] MEDS: Apixaban 5 MG TAB PO ×2 (07:52→19:56)
[2019-04-03] MEDS: Benzonatate 200 MG CAP PO ×3 (07:53→19:56)
[2019-04-03] MEDS: Furosemide 20 MG TAB PO ×2 (07:53→15:47)
[2019-04-03] MEDS: Carvedilol 6.25 MG TAB PO ×2 (07:53→19:56)
[2019-04-03] MEDS: Lisinopril 20 MG TAB 40 MG PO (07:53)
[2019-04-03] MEDS: Normal Saline Flush 10 ML SYR IVP ×3 (08:01→23:37)
[2019-04-03] MEDS: guaiFENesin 600 MG TABCR PO (10:00)
[2019-04-03 10:38] VITALS: O2SAT 96
[2019-04-03 15:00] VITALS: BP 168/86; PULSE 82; RESP 17; TEMP 37.1; O2SAT 97
--- NOTE | 2019-04-03 15:45 | CMPROGNOTE_ITS ---
- If Service Date Differs Date of service: 04/03/19 Time of Service: 15:45 Care Management Progress Note S/O: Marcin states he is improving but continues to require IV antibiotics. He reports his legs are less swollen and the redness is slowly going away. He talks about the great care he is receiving at the hospital and says all of the staff have been really nice. He also shares that over the weekend, staff discussed changing his status from inpatient to swing bed with him and he shares his understanding of the meaning of this status change. CM will continue to follow. A: Marcin is a 58 year old male admitted to [facility] on 03/24/2019 for sepsis. P: Marcin will be discharged home when medically cleared by provider with resumption of [facility] moderate needs and homemaking services. He may also benefit from nursing to assist with wound care and HH PT upon discharge. Anticipate he will transition to swing bed in the next 24-hours. CM will continue to follow.
[2019-04-03] MEDS: Sodium Chloride-Nasal SPRAY-ADULT 44 ML BTL NS (17:07)
--- NOTE | 2019-04-03 17:30 | PGE_ITS ---
Date of Service Date of service: 04/03/19 Time of Service: 16:35 Assessment and Plan Assessment and plan (1) Sepsis due to group B Streptococcus with acute organ dysfunction: Status: Acute Assessment and plan: Repeat blood cultures 12/29/19 negative - official 1st day of IV antibiotics (Penicillin G + clindamycin Day 07/26). Source - RLE wound. Continue current abx. Continue wound care. Continue diuresis. It is entirely possible that the 2 weeks of antibiotics will not be enough to cure soft tissue infection in setting of lymphedema - at that point, would consult with ID and consider either PO antibiotics or home health IV antibiotics. The patient does have insurance coverage. Qualifiers: Acute renal failure type: with acute tubular necrosis Severe sepsis acute organ dysfunction type: acute renal failure Severe sepsis shock status: without septic shock Qualified Code(s): A40.1 - Sepsis due to streptococcus, group B; R65.20 - Severe sepsis without septic shock; N17.0 - Acute kidney f ailure with tubular necrosis (2) Cellulitis of right lower leg: Status: Acute Assessment and plan: As above (3) Hypertension: Status: Chronic Assessment and plan: Patient has specifically declined HCTZ - triameterene. Continue lasix for lymphedema. Continue coreg and lisinopril. Qualifiers: Hypertension type: essential hypertension Qualified Code(s): I10 - Essential (primary) hypertension (4) Lymphedema: Status: None Assessment and plan: As above. Continue compression wraps, diuresis. Would eventually benefit from lymphedema therapy. (5) Obstructive sleep apnea: Status: Chronic Assessment and plan: Continue CPAP (6) DVT prophylaxis: Status: Acute Assessment and plan: Continue therapeutic eliquis (7) Discharge planning issues: Status: Acute Assessment and plan: Full code Expected to be admitted to swing bed level 1 tomorrow. Subjective Subjective Interval history since last seen: Denies dizziness, chest pain, shortness of breath, nausea, vomiting. States that his leg is looking better. Exam Narrative Exam Narrative: General: Pleasant obese male, sitting comfortably in a chair, A&Ox3 HEENT: EOMI, MMM Heart: RRR, no m/r/g Lungs: CTAB; dry cough Abdomen: soft, nontender, nondistended Extremities: BLE lymphedema; legs wrapped. Objective Objective Clinical Data: Vital Signs Temperature 37.1 C 04/03/19 15:00 Temperature Source Tympanic 04/03/19 15:00 Pulse 82 04/03/19 15:00 Pulse Rhythm Regular 04/03/19 15:50 Respiratory Rate 17 04/03/19 15:00 Respiratory Effort Non-Labored 04/03/19 15:50 Respiratory Depth Normal 04/03/19 15:50 Respiratory Pattern Normal 04/03/19 15:50 Blood Pressure 168/86 H 04/03/19 15:00 Pulse Oximetry 97 04/03/19 15:00 Oxygen Delivery Method Room Air 04/03/19 15:00 Oxygen Flow Rate 0 04/03/19 15:00 Pain Level 0 04/03/19 15:00 Comment 03/26/19 20:46 Intake & Output 04/02/19 04/03/19 04/03/19 23:59 11:59 23:59 Intake Total 1450 / 3130 730 / 1020 290 / 1020 Output Total 250 / 700 Balance 1200 / 2430 730 / 1020 290 / 1020 Weight 149.2 kg Intake: IV 260 / 460 250 / 300 50 / 300 Oral 1190 / 2670 480 / 720 240 / 720 Output: Urine 250 / 700 Other: Urine Appearance Clear Clear Comment Voiding ad jeffery Voiding Methods Toilet Toilet Laboratory Results WBC 10.74 k/cumm (4.4-10.8) 04/02/19 07:00 RBC 4.44 m/cumm (4.50-6.00) L 04/02/19 07:00 Hgb 13.4 g/dL (13.5-17.5) L 04/02/19 07:00 Hct 41.3 % (40.0-50.0) 04/02/19 07:00 MCV 93.0 fL (80-95) 04/02/19 07:00 MCH 30.2 pg (27.0-33.0) 04/02/19 07:00 MCHC 32.4 g/dL (32.0-36.0) 04/02/19 07:00 RDW 14.7 % (11.8-14.1) H 04/02/19 07:00 Plt Count 316 x1000/uL (130-400) 04/02/19 07:00 MPV 8.6 fL (8.0-11.0) 04/02/19 07:00 Immature Gran % 3.6 % 04/02/19 07:00 Neutrophils % 62.6 04/02/19 07:00 Band Neutrophils % 1.0 % 03/30/19 06:00 Lymphocytes % 24.4 04/02/19 07:00 Atypical Lymphs % 7 03/30/19 06:00 Monocytes % 7.4 04/02/19 07:00 Eosinophils % 1.6 04/02/19 07:00 Basophils % 0.4 04/02/19 07:00 Metamyelocytes % 1.0 % 03/29/19 07:15 Myelocytes % 2.0 % 03/30/19 06:00 Absolute Neutrophils 6.72 k/cumm (1.2-6.7) H 04/02/19 07:00 Absolute Lymphocytes 2.62 k/cumm (1.2-3.4) 04/02/19 07:00 Absolute Monocytes 0.80 k/cumm (0.11-0.7) H 04/02/19 07:00 Absolute Eosinophils 0.17 k/cumm (0.0-0.7) 04/02/19 07:00 Absolute Basophils 0.04 k/cumm (0.0-0.2) 04/02/19 07:00 Differential Comment Manual differential 03/30/19 06:00 RBC Morphology Normal 03/29/19 07:15 PT 10.6 sec (9.3-11.0) 03/24/19 21:19 INR 1.1 (0.9-1.1) 03/24/19 21:19 APTT 19.4 sec (21.0-31.4) L 03/24/19 21:19 Sodium 139 mmol/L (136-145) 04/02/19 07:00 Potassium 4.5 mmol/L (3.5-5.1) 04/02/19 07:00 Chloride 106 mmol/L (98-107) 04/02/19 07:00 Carbon Dioxide 23.9 mmol/L (21.0-32.0) 04/02/19 07:00 Anion Gap 9.1 mmol/L (3-11) 04/02/19 07:00 BUN 17 mg/dL (7-18) 04/02/19 07:00 Creatinine 0.98 mg/dL (0.70-1.30) 04/02/19 07:00 Estimated GFR/1.73 m2 >= 60.00 (mL/min/1.73m2) 04/02/19 07:00 Glucose 131 mg/dL (74-106) H 04/02/19 07:00 Lactate 1.2 mmol/L (0.6-1.4) 03/28/19 06:45 Calcium 8.6 mg/dL (8.5-10.1) 04/02/19 07:00 Magnesium 2.1 mg/dL (1.8-2.4) 04/02/19 07:00 Total Bilirubin 1.0 mg/dL (0.2-1.0) 03/24/19 21: AST 30 U/L (15-37) 03/24/19 21: ALT 51 U/L (16-63) 03/24/19 21:19 Alkaline Phosphatase 64 U/L (46-116) 03/24/19 21: Creatine Kinase 246 U/L (39-308) 03/24/19 21:19 C-Reactive Protein 3.63 mg/dL (0.0-0.3) H 04/02/19 07:00 NT-Pro-B Natriuret Pep 99 pg/mL (<300) 03/24/19 21:19 Total Protein 6.9 g/dL (6.4-8.2) 03/24/19 21:19 Albumin 3.6 g/dL (3.4-5.0) 03/24/19 21:19 Procalcitonin 1.9 ng/mL 03/31/19 06:28 Urine Color Yellow (Yellow) 03/24/19 23:25 Urine Clarity Clear (Clear) 03/24/19 23:25 Urine pH 5.5 (5-8) 03/24/19 23:25 Ur Specific [place] 1.010 (1.005-1.025) 03/24/19 23:25 Urine Protein Negative mg/dL (Negative) 03/24/19 23:25 Urine Ketones Negative mg/dL (Negative) 03/24/19 23:25 Urine Blood Negative (Negative) 03/24/19 23:25 Urine Nitrite Negative (Negative) 03/24/19 23:25 Urine Bilirubin Negative (Negative) 03/24/19 23:25 Urine Urobilinogen 0.2 EU/dL (Up TO 0.2) 03/24/19 23:25 Ur Leukocyte Esterase Negative (Negative) 03/24/19 23:25 Urine Glucose Negative mg/dL (Negative) 03/24/19 23:25 Specimen Type Cancelled 03/24/19 22:07 Vancomycin Trough 10.3 ug/mL (10.0-20.0) 03/26/19 09:20 Influenza Type A IgG >=1:1280 (<1:10) A 03/24/19 21:15 Influenza Type A IgM >=1:10 (<1:10) A 03/24/19 21:15 Influenza Type A RNA Cancelled 03/24/19 22:07 Influenza Type B RNA Cancelled 03/24/19 22:07 RSV RNA Qual (PCR) Cancelled 03/24/19 22:07
[2019-04-03 19:35] VITALS: BP 171/75; PULSE 80; RESP 16; TEMP 37; O2SAT 98
[2019-04-04] MEDS: guaiFENesin 600 MG TABCR PO ×2 (01:34→08:40)
[2019-04-04] MEDS: CLINDAMYCIN 900 MG/50 ML BAG 50 MG IVPB ×2 (01:34→10:31)
[2019-04-04] MEDS: Normal Saline Flush 10 ML SYR IVP ×2 (03:48→15:23)
[2019-04-04] MEDS: Penicillin G POT. 3,000,000 UNITS in Normal Saline 50 ML 100 UNITS IVPB ×3 (03:49→15:25)
[2019-04-04 07:36] VITALS: BP 142/88; PULSE 72; RESP 18; O2SAT 95
[2019-04-04] MEDS: hydrALAZINE 10 MG TAB 30 MG PO ×2 (08:34→15:23)
[2019-04-04] MEDS: Benzonatate 200 MG CAP PO ×2 (08:35→15:23)
[2019-04-04] MEDS: Lisinopril 20 MG TAB 40 MG PO (08:37)
[2019-04-04] MEDS: Apixaban 5 MG TAB PO (08:38)
[2019-04-04] MEDS: Carvedilol 6.25 MG TAB PO (08:39)
[2019-04-04] MEDS: Furosemide 20 MG TAB PO (08:40)
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
--- NOTE | 2019-04-04 14:19 | CHAPLAIN ---
Marcin was in bed when I visited. He told me that he may have to stay longer than he would like in order to receive the IV antibiotics needed. He said he is feeling better and hoping he will be able to be discharged on oral antibiotics because he has already been here a couple of weeks and he needs to return home to attend so bills and that kind of thing. He has already imposed on friends enough he said. 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 He said when he is feeling well, and getting to do his work at [employer], he likes the life he has built for himself. He is interested in possibly doing some Bible reading or talking the Bible while he is here and I let him know how to contact me for that.
--- NOTE | 2019-04-04 14:19 | W.NUTCONSULT ---
Date of service: 04/04/19 Time of Service: 14:19 Nutritional Consult ASSESSMENT: 58 year old male admitted with lymphedema, cellulitis with sepsis. PMH:morbid obesity, ROSENDA, HTN, COPD. Marcin reports that he has gained over 150 lbs in last 5 years in conjunction with homelessness and illness. Provided him with ideal meal plan to follow for gradual weight loss, encouraged him to follow higher protein meal plan and lower carb diet, provided him with contact information for outpatient nutrition counseling. Has lost 20 lbs since admit (much of it fluid) but encouraged further weight loss and a diet rich in antioxidants, lean protein for optimal wound healing. Also encouraged daily yogurt for probiotic benefit. Marcin very engaged in education and motivated to make positive changes for weight loss, wound healing and improved health. NUTRITIONAL DIAGNOSIS: morbid obesity INTERVENTION: educated on weight management principles MONITORING AND EVALUATION: weight, po intake Time Spent in Nutritional Counseling and Treatment: 20 min spent face to face
--- NOTE | 2019-04-12 17:28 | CMPROGNOTE_ITS ---
Care Management Progress Note CM reviewed discharge considerations with Marcin: Marcin is agreeable to discharging home and is confident he can manage his care needs with additional support. CM requested PT consult order from MD for evaluation and treatment recommendations for outpatient lymphedema and having to ascend 20 steps into his apartment. CM requested [place] consult order for evaluation of feet prior to discharge. CM faxed notification to Vannessa Tomlinson; [facility] for Mod Needs at [facility] for request for increased provision (approved for 6 hours, currently only receiving two due to staff shortage) for grocery trips in addition to home making supports and laundry. Anticipate [facility] supports for RN (dressing changes), OT. Anticipate OP/PT support for lymphedema management. Marcin will transport via [facility] upon discharge.
== END 2019-04-04 15:44 | disposition swing bed (61) | DRG 871 ==
LOC: ER 23:01 → MS 23:07
PROVIDERS: Internal Medicine; Admitting Provider General Practice; Emergency Provider Student in an Organized Health Care Education/Training Program; PCP Family Medicine; Visit Provider Internal Medicine
DX: A40.1 Sepsis due to streptococcus, group B (principal); N17.0 Acute kidney failure with tubular necrosis; L03.115 Cellulitis of right lower limb; I48.20 Chronic atrial fibrillation, unspecified; L97.419 Non-pressure chronic ulcer of right heel and midfoot with unspecified severity; Z68.42 Body mass index [BMI] 45.0-49.9, adult; R65.20 Severe sepsis without septic shock; I89.0 Lymphedema, not elsewhere classified; I10 Essential (primary) hypertension; G47.33 Obstructive sleep apnea (adult) (pediatric); Z79.01 Long term (current) use of anticoagulants; E86.1 Hypovolemia; R39.2 Extrarenal uremia; K52.9 Noninfective gastroenteritis and colitis, unspecified; E66.01 Morbid (severe) obesity due to excess calories; R01.1 Cardiac murmur, unspecified; E87.70 Fluid overload, unspecified; R09.82 Postnasal drip; L60.0 Ingrowing nail; B35.1 Tinea unguium
CPT/HCPCS: 36415; 76881; 80048; 80053; 82550; 84145; 85027; 87040; 87077; 87449; 87631; 96361; 96365; 96367; 96368; 97162; 99222; 99232; 99233; 99239; 99285; 71046; 73630; 73701; 80202; 81003; 83605; 83735; 83880; 85025; 85610; 85730; 86140; 86710; 87086; 93306; J0131; J2405; J2540; J2543; J3370; J3480; J3490

== ENCOUNTER 2019-04-04 15:15 | Inpatient (IN) | payer MEDICAID, SELFPAY ==
--- NOTE | 2019-04-04 14:41 | HPE_ITS ---
Date of service: 04/04/19 Time of Service: 14:41 Assessment and Plan Assessment and plan (1) Sepsis due to group B Streptococcus with acute organ dysfunction: Status: Acute Assessment and plan: resolved, Repeat blood cultures 12/29/19 negative - continue current antibioitics (Penicillin G + clindamycin Day 08/26). Source - RLE wound. Continue wound care. Continue diuresis. It is entirely possible that the 2 weeks of antibiotics will not be enough to cure soft tissue infection in setting of lymphedema - at that point, would consult with ID and consider either PO antibiotics or home health IV an tibiotics. Qualifiers: Acute renal failure type: with acute tubular necrosis Severe sepsis acute organ dysfunction type: acute renal failure Severe sepsis shock status: without septic shock Qualified Code(s): A40.1 - Sepsis due to streptococcus, group B; R65.20 - Severe sepsis without septic shock; N17.0 - Acute kidney failure with tubular necrosis (2) Lymphedema: Status: None Assessment and plan: Continue compression wraps, diuresis. Would eventually benefit from lymphedema therapy. (3) Cellulitis of right lower leg: Status: Acute Assessment and plan: see #1, elevate as much as possible during the day. continue diuresis and wraps, continue wound care. (4) Hypertension: Status: Chronic Assessment and plan: Patient has specifically declined HCTZ - triameterene. Continue lasix for lymphedema Continue coreg and lisinopril. monitor blood pressure daily per protocol. adjust medication as needed. Qualifiers: Hypertension type: essential hypertension Qualified Code(s): I10 - Essential (primary) hypertension (5) Obstructive sleep apnea: Status: Chronic Assessment and plan: continue cpap (6) DVT prophylaxis: Status: Acute Assessment and plan: continue full dose eliquis (7) Discharge planning issues: Status: Acute Assessment and plan: will be admitted to [facility] for nursing for wound care and IV antibiotics. History of Present Illness History of Present Illness Chief Complaint: right lower extremity cellulitis Narrative: This is a 58 year old male admitted for sepsis d/t group B streptococcus. hospital course complicated by acute renal failure, ongoing lymphedema. He was followed by podiatry who evaluated the area of ulceration to plantar aspect of right foot that started with history of glass foreign body. he was admitted through the ED where he presented for sepsis secondary to cellulitis. His wound was debrided to remove all devitalized tissue, an ultrasound study of his right foot for foreign body demonstrated no retained foreign body. Wound care instruction per Dr Bradford and he will continue with compression Horacio wraps both lower extremities for his chronic lymphedema. His blood cultures have demonstrated no growth. His white count has normalized. he has remained medically stable with no fevers. CRP has trending downward. His kidney function has normalized. He is eating and drinking well and bowels and bladder functioning well. He is currently taking penicillin G and clindaymycin day 08/26). plan is to discharge to [facility] care for ongoing IV antibiotics, wound care and rehabilitation. Review of Systems Constitutional Constitutional: Reports as per HPI, Denies chills and Denies fever(s) ENT Ears, Nose, Mouth, and Throat: Denies vertigo and Denies dizziness Comments: no oral exudates Cardiovascular Cardiovascular: Reports leg ulcers, Reports leg edema and Denies dyspnea Respiratory Respiratory: Denies chest congestion, Denies cough, Denies pain on inspiration and Denies dyspnea Gastrointestinal Gastrointestinal: Denies abdominal pain, Denies constipation, Denies diarrhea and Denies nausea Genitourinary Genitourinary: Denies difficulty urinating Musculoskeletal Musculoskeletal: Denies limited range of motion Integumentary/Breasts Skin/Breast: Reports skin ulcer and Reports sores Neurologic Neurologic: Denies vertigo and Denies dizziness [facility] Social History Smoking/Tobacco Use Status: Never Alcohol Intake: current Alcohol Intake frequency: a few times a week Alcohol type: beer Drug use: Never Do you feel safe at home: Yes Do you feel safe in your relationship?: Yes Meds Home Medications and Allergies Home Medications Medication Instructions Recorded Confirmed Type amlodipine 10 mg PO DAILY tab-cap 07/07/16 03/24/19 History lisinopril 40 mg PO DAILY tab-cap 07/07/16 03/24/19 History Eliquis 5 mg PO BID #60 tab 12/22/16 03/24/19 Rx cetirizine 10 mg capsule 10 mg PO DAILY 10/07/18 03/24/19 History hydralazine 10 mg tablet 30 mg PO TID #3 10/07/18 03/24/19 History Allergies Allergy/AdvReac Type Severity Reaction Status Date / Time ciprofloxacin [From Cipro] AdvReac Severe Other (See Unverified 03/24/19 20:36 Comment) environmental/pollen AdvReac Severe rhinitis Uncoded 10/26/18 12:18 Exam Const General: cooperative, comfortable and no acute distress Nutritional Appearance: obese Orientation: alert, awake and oriented x3 HENMT Head: normal to inspection, normocephalic and atraumatic Mouth: moist mucous membranes abnormal Resp Effort & Inspection: normal respiratory effort Auscultation: clear to auscultation bilaterally Cardio Rate: regular rate Rhythm: regular rhythm GI Inspection: distended and obesity Palpation: soft Auscultation: normal bowel sounds Skin Lesions: lesion noted (right lower, plantar aspect of foot 2 cm, black center, wound edges intact,) Rashes: rashes noted (right lower, patient reports improving, erythema from ankle to below knee) Neuro General: alert, awake and oriented x3 Extrem General: normal to inspection and edema (right much greater than left) Psych Appearance: grossly normal Mood: anxious mood Thought Process: normal Thought Content: normal Insight: fair Judgment: fair
[2019-04-04 15:25] VITALS: BP 150/77; PULSE 82; RESP 18; TEMP 37.4; O2SAT 95
[2019-04-04] MEDS: Furosemide 20 MG TAB PO (16:24)
[2019-04-04] MEDS: CLINDAMYCIN 900 MG/50 ML BAG 50 MG IVPB (18:02)
--- NOTE | 2019-04-04 18:03 | CM.SWINGPC ---
Swingbed Plan of Care Plan of care: SWING BED PROGRAM ACTIVITIES/DISCHARGE PLAN OF CARE ACTIVITIES PLAN Date: 04/04/19 Identified Need: Life enrichment during extended hospital course. Intervention/Plan: CART items offered, Therapy dogs, Reiki, outings and activities program offered. Initials: [facility] DISCHARGE PLAN Date: Identified Need: Per MD: Sepsis due to group B Streptococcus with acute organ dysfunction: Assessment and plan: resolved, Repeat blood cultures 03/30/19 negative - continue current antibiotics (Penicillin G + clindamycin Day 08/26). Source - RLE wound. Continue wound care. Continue diuresis. It is entirely possible that the 2 weeks of antibiotics will not be enough to cure soft tissue infection in setting of lymphedema - at that point, would consult with ID and consider either PO antibiotics or home health IV antibiotics. Intervention/Plan: SWB1 for IV ABX as above. Possible PT referral for Lymphedema once infection is resolved. Initials: [facility]
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
[2019-04-04] MEDS: Penicillin G POT. 3,000,000 UNITS in Normal Saline 50 ML 100 UNITS IVPB ×2 (19:11→21:59)
[2019-04-04] MEDS: guaiFENesin 600 MG TABCR PO (19:12)
[2019-04-04] MEDS: Benzonatate 200 MG CAP PO (20:20)
[2019-04-04] MEDS: hydrALAZINE 10 MG TAB 30 MG PO (20:21)
[2019-04-04] MEDS: Carvedilol 6.25 MG TAB PO (20:21)
[2019-04-04] MEDS: Apixaban 5 MG TAB PO (20:21)
[2019-04-04] MEDS: Normal Saline Flush 10 ML SYR IVP (21:59)
[2019-04-05] MEDS: CLINDAMYCIN 900 MG/50 ML BAG 50 MG IVPB ×3 (01:24→18:09)
[2019-04-05] MEDS: Penicillin G POT. 3,000,000 UNITS in Normal Saline 50 ML 100 UNITS IVPB ×6 (02:27→21:40)
[2019-04-05] MEDS: Normal Saline Flush 10 ML SYR IVP ×5 (06:34→21:41)
[2019-04-05] MEDS: Acetaminophen 500 MG TAB 1000 MG PO (06:43)
[2019-04-05 07:28] VITALS: BP 146/73; PULSE 78; RESP 19; TEMP 37.8; O2SAT 95
[2019-04-05] MEDS: Furosemide 20 MG TAB PO ×2 (07:45→15:41)
[2019-04-05] MEDS: Benzonatate 200 MG CAP PO ×3 (07:45→20:09)
[2019-04-05] MEDS: Lisinopril 20 MG TAB 40 MG PO (07:45)
[2019-04-05] MEDS: Apixaban 5 MG TAB PO ×2 (07:45→20:09)
[2019-04-05] MEDS: hydrALAZINE 10 MG TAB 30 MG PO ×3 (07:45→20:09)
[2019-04-05] MEDS: Carvedilol 6.25 MG TAB PO ×2 (07:45→20:09)
[2019-04-05] MEDS: guaiFENesin 600 MG TABCR PO ×2 (07:48→20:13)
[2019-04-05 09:54] VITALS: O2SAT 95
--- NOTE | 2019-04-05 13:00 | PHARADMIT ---
Addendum entered by Hattie Balderas 04/11/19 09:37: BP-157/79 other VS okay -penicillin and clindamycin continue through 04/13/2019. last dose either at end of day 04/13 of mid day 04/14 pending on if MD considering start of abx on the 16 at the beginning of the day or on the 16th when the blood cultures were drawn -MD to write note today -no med changes so far today Addendum entered by Hattie Balderas 04/10/19 11:40: BP-145/78 other VS okay plt 453(up) CRP-0.28(down) penicillin and clindamycin continue through 04/13/2019 no med changes Addendum entered by Hattie Balderas 04/08/19 14:22: No VS or labs penicillin and clindamycin continue through 04/13/2019 no med changes mentioned rechecking CRP soon Addendum entered by Willard Littlejohn III 04/06/19 14:45: VS-OK No Labs. No Med changes. noted that patient is to receive IV ABX treatment for 14 days from the last culture (03/30/2019. The IV ABX will finish on Apr 13 2019. At this point ID will be notified as to the future course of therapy. Original Note: Admission Pharmacy Clinical Review LYMPHEDEMA PATIENT WITH Right Lower leg CELLULITIS on SWING BED Level I Patient converted to Swing Bed yesterday to receive IV antibiotic therapy ( Pen-G and Clindamycin) Day# 7 of 14. noted that red line of demarcation on leg, has diminished. Has been up to shower. VS-OK No Labs Patient suffers from post-nasal drip but refuses to take meds. Takes Mucinx only.
[2019-04-06] MEDS: Penicillin G POT. 3,000,000 UNITS in Normal Saline 50 ML 100 UNITS IVPB ×6 (01:16→21:48)
[2019-04-06] MEDS: CLINDAMYCIN 900 MG/50 ML BAG 50 MG IVPB ×3 (02:00→17:29)
[2019-04-06] MEDS: Normal Saline Flush 10 ML SYR IVP ×4 (06:31→21:49)
[2019-04-06 07:20] VITALS: BP 148/76; PULSE 78; RESP 20; TEMP 37.1; O2SAT 94
[2019-04-06] MEDS: Benzonatate 200 MG CAP PO ×3 (09:34→19:41)
[2019-04-06] MEDS: Furosemide 20 MG TAB PO ×2 (09:35→16:14)
[2019-04-06] MEDS: Apixaban 5 MG TAB PO ×2 (09:35→19:42)
[2019-04-06] MEDS: hydrALAZINE 10 MG TAB 30 MG PO ×3 (09:35→19:42)
[2019-04-06] MEDS: Lisinopril 20 MG TAB 40 MG PO (09:35)
[2019-04-06] MEDS: Carvedilol 6.25 MG TAB PO ×2 (09:35→19:42)
[2019-04-06 16:04] VITALS: BP 168/81; PULSE 74; RESP 16; TEMP 36.6; O2SAT 97
[2019-04-06] MEDS: guaiFENesin 600 MG TABCR PO (22:48)
[2019-04-07] MEDS: Normal Saline Flush 10 ML SYR IVP ×4 (02:11→23:49)
[2019-04-07] MEDS: Penicillin G POT. 3,000,000 UNITS in Normal Saline 50 ML 100 UNITS IVPB ×6 (02:11→23:48)
[2019-04-07] MEDS: CLINDAMYCIN 900 MG/50 ML BAG 50 MG IVPB ×3 (03:00→17:29)
[2019-04-07 07:35] VITALS: BP 122/60; PULSE 76; RESP 20; TEMP 36.9; O2SAT 97
[2019-04-07] MEDS: Benzonatate 200 MG CAP PO ×3 (09:19→19:59)
[2019-04-07] MEDS: hydrALAZINE 10 MG TAB 30 MG PO ×3 (09:20→20:00)
[2019-04-07] MEDS: Carvedilol 6.25 MG TAB PO ×2 (09:20→20:00)
[2019-04-07] MEDS: Apixaban 5 MG TAB PO ×2 (09:20→20:00)
[2019-04-07] MEDS: Lisinopril 20 MG TAB 40 MG PO (09:20)
[2019-04-07] MEDS: guaiFENesin 600 MG TABCR PO ×2 (09:20→20:04)
[2019-04-07] MEDS: Furosemide 20 MG TAB PO ×2 (09:21→16:02)
[2019-04-07 23:46] VITALS: BP 154/72; PULSE 82; RESP 20; TEMP 36.6; O2SAT 95
[2019-04-08] MEDS: Normal Saline Flush 10 ML SYR IVP ×5 (01:41→23:44)
[2019-04-08] MEDS: CLINDAMYCIN 900 MG/50 ML BAG 100 MG IVPB ×2 (01:41→11:08)
[2019-04-08] MEDS: Penicillin G POT. 3,000,000 UNITS in Normal Saline 50 ML 100 UNITS IVPB ×6 (04:03→23:43)
[2019-04-08] MEDS: Apixaban 5 MG TAB PO ×2 (09:35→20:54)
[2019-04-08] MEDS: Carvedilol 6.25 MG TAB PO ×2 (09:35→20:54)
[2019-04-08] MEDS: Furosemide 20 MG TAB PO ×2 (09:35→16:07)
[2019-04-08] MEDS: Lisinopril 20 MG TAB 40 MG PO (09:35)
[2019-04-08] MEDS: Benzonatate 200 MG CAP PO ×3 (09:36→20:54)
[2019-04-08] MEDS: hydrALAZINE 10 MG TAB 30 MG PO ×3 (09:36→20:54)
[2019-04-08] MEDS: CLINDAMYCIN 900 MG/50 ML BAG 50 MG IVPB (17:06)
[2019-04-09] MEDS: CLINDAMYCIN 900 MG/50 ML BAG 50 MG IVPB ×3 (01:57→18:25)
[2019-04-09] MEDS: Normal Saline Flush 10 ML SYR IVP ×7 (01:57→23:38)
[2019-04-09] MEDS: Penicillin G POT. 3,000,000 UNITS in Normal Saline 50 ML 100 UNITS IVPB ×6 (03:21→23:39)
[2019-04-09] MEDS: guaiFENesin 600 MG TABCR PO (06:32)
--- NOTE | 2019-04-09 07:11 | RESPIRATORY ---
Rt spoke with patient and he stated he does not have a machine for his sleep apnea.
[2019-04-09 07:30] VITALS: BP 127/64; PULSE 65; RESP 17; TEMP 37; O2SAT 97
[2019-04-09] MEDS: hydrALAZINE 10 MG TAB 30 MG PO ×3 (07:48→20:15)
[2019-04-09] MEDS: Benzonatate 200 MG CAP PO ×3 (07:48→20:15)
[2019-04-09] MEDS: Lisinopril 20 MG TAB 40 MG PO (07:49)
[2019-04-09] MEDS: Carvedilol 6.25 MG TAB PO ×2 (07:49→20:15)
[2019-04-09] MEDS: Furosemide 20 MG TAB PO ×2 (07:49→15:59)
[2019-04-09] MEDS: Apixaban 5 MG TAB PO ×2 (07:49→20:15)
[2019-04-09] MEDS: Normal Saline 500 ML 50 ML IV (10:35)
[2019-04-10] MEDS: CLINDAMYCIN 900 MG/50 ML BAG 50 MG IVPB ×3 (01:43→17:09)
[2019-04-10] MEDS: Normal Saline Flush 10 ML SYR IVP ×5 (01:44→23:54)
[2019-04-10] MEDS: Penicillin G POT. 3,000,000 UNITS in Normal Saline 50 ML 100 UNITS IVPB ×6 (04:01→23:54)
[2019-04-10 06:45] LABS: Abs Immature Grans 0.07 k/cumm (0.0-0.09); Absolute Basophil Count 0.07 k/cumm (0.0-0.2); Absolute Eosinophil Count 0.13 k/cumm (0.0-0.7); Absolute Lymphocyte Count 2.16 k/cumm (1.2-3.4); Absolute Monocyte Count 0.66 k/cumm (0.11-0.7); Absolute Neutrophil Count 4.67 k/cumm (1.2-6.7); Basophils % 0.9; Eosinophils % 1.7; HCT 40.3 % (40.0-50.0); Immature Grans % 0.9 %; Lymphocytes % 27.8; Mean Corp. HGB Concentration 32.3 g/dL (32.0-36.0); Mean Corpuscular Hemoglobin 30.1 pg (27.0-33.0); Mean Corpuscular Volume 93.3 fL (80-95); Mean Platelet Volume 8.4 fL (8.0-11.0); Monocytes % 8.5; Neutrophils % 60.2; Platelet Count 453 x1000/uL (130-400); RBC 4.32 m/cumm (4.50-6.00); RBC Distribution Width 14.7 % (11.8-14.1); White Blood Cell Count 7.76 k/cumm (4.4-10.8)
[2019-04-10 07:05] LABS: Anion Gap 7.2 mmol/L (3-11); BUN 18 mg/dL (7-18); C-Reactive Protein 0.28 mg/dL (0.0-0.3); CO2 26.8 mmol/L (21.0-32.0); CREATININE 0.95 mg/dL (0.70-1.30); Calcium 8.5 mg/dL (8.5-10.1); Chloride 106 mmol/L (98-107); Glucose 105 mg/dL (74-106); Sodium 140 mmol/L (136-145)
[2019-04-10] MEDS: hydrALAZINE 10 MG TAB 30 MG PO ×3 (07:45→19:46)
[2019-04-10] MEDS: Apixaban 5 MG TAB PO ×2 (07:46→19:46)
[2019-04-10] MEDS: Lisinopril 20 MG TAB 40 MG PO (07:46)
[2019-04-10] MEDS: Furosemide 20 MG TAB PO ×2 (07:46→16:16)
[2019-04-10] MEDS: Benzonatate 200 MG CAP PO ×3 (07:46→19:46)
[2019-04-10] MEDS: Carvedilol 6.25 MG TAB PO ×2 (07:46→19:46)
[2019-04-10 09:27] VITALS: BP 145/78; PULSE 72; RESP 18; TEMP 37; O2SAT 96
[2019-04-10] MEDS: guaiFENesin 600 MG TABCR PO (10:01)
[2019-04-11] MEDS: CLINDAMYCIN 900 MG/50 ML BAG 50 MG IVPB ×3 (02:49→17:49)
[2019-04-11] MEDS: Penicillin G POT. 3,000,000 UNITS in Normal Saline 50 ML 100 UNITS IVPB ×5 (04:08→20:21)
[2019-04-11] MEDS: Benzonatate 200 MG CAP PO ×3 (08:18→20:22)
[2019-04-11] MEDS: hydrALAZINE 10 MG TAB 30 MG PO ×3 (08:18→20:22)
[2019-04-11] MEDS: Lisinopril 20 MG TAB 40 MG PO (08:19)
[2019-04-11] MEDS: Furosemide 20 MG TAB PO ×2 (08:19→16:43)
[2019-04-11] MEDS: Carvedilol 6.25 MG TAB PO ×2 (08:19→20:22)
[2019-04-11] MEDS: Apixaban 5 MG TAB PO ×2 (08:33→20:22)
[2019-04-11 08:58] VITALS: BP 157/79; PULSE 76; RESP 17; TEMP 36.6; O2SAT 94
[2019-04-11] MEDS: Normal Saline Flush 10 ML SYR IVP ×2 (12:25→13:21)
[2019-04-12] MEDS: Penicillin G POT. 3,000,000 UNITS in Normal Saline 50 ML 100 UNITS IVPB ×6 (00:20→20:25)
[2019-04-12] MEDS: CLINDAMYCIN 900 MG/50 ML BAG 50 MG IVPB ×3 (02:13→18:03)
[2019-04-12 07:48] VITALS: BP 132/86; PULSE 66; RESP 17; TEMP 36.6; O2SAT 97
[2019-04-12] MEDS: Normal Saline Flush 10 ML SYR IVP ×5 (08:34→20:24)
[2019-04-12] MEDS: Apixaban 5 MG TAB PO ×2 (08:36→20:24)
[2019-04-12] MEDS: hydrALAZINE 10 MG TAB 30 MG PO ×3 (08:36→20:24)
[2019-04-12] MEDS: Furosemide 20 MG TAB PO ×2 (08:36→15:49)
[2019-04-12] MEDS: Carvedilol 6.25 MG TAB PO ×2 (08:36→20:24)
[2019-04-12] MEDS: Benzonatate 200 MG CAP PO ×3 (08:36→20:24)
[2019-04-12] MEDS: Lisinopril 20 MG TAB 40 MG PO (08:36)
--- NOTE | 2019-04-12 17:36 | W.PM.PROGNOT ---
Date of Service Date of service: 04/12/19 Time of Service: 17:36 Assessment and Plan Assessment and plan (1) Cellulitis of right lower leg: Status: Acute Assessment and plan: Patient is approaching the end of planned antibiotic therapy for the cellulitis of his right lower leg. There is been no fever. White counts normalized. Will check labs again tomorrow, take down the dressing and really check the area. In the absence of osteomyelitis I think he probably has completed his antibiotics at this point. We will asked Dr. Bradford to weigh in regarding the plantar wound. (2) Discharge planning issues: Status: Acute Assessment and plan: Possible discharge in the next 24 to 48 hours. Subjective Subjective Interval history since last seen: Patient is anxious about the potential for discharge. He still has a lot of swelling around his right lower leg. He is concerned about the wound on the bottom of his foot. He has not been ambulating because of concerns about the wound on his foot. Pain is otherwise well controlled. No problems with antibiotic infusions. Exam Narrative Exam Narrative: On exam he is talkative and moderately anxious. He has no respiratory difficulties. His right lower leg is markedly more swollen and enlarged versus the left leg. Both of the lower extremities appear to have some element of lymphedema, right greater than left. I did not take his dressings down this evening. The plan is to do a full removal of dressings and checking of the wound tomorrow. Objective Objective Clinical Data: Vital Signs Temperature 36.6 C 04/12/19 07:48 Temperature Source Tympanic 04/12/19 07:48 Pulse 66 04/12/19 07:48 Pulse Rhythm Regular 04/12/19 08:52 Respiratory Rate 17 04/12/19 07:48 Respiratory Effort Non-Labored 04/12/19 08:52 Respiratory Depth Normal 04/12/19 08:52 Respiratory Pattern Normal 04/12/19 08:52 Blood Pressure 132/86 04/12/19 07:48 Pulse Oximetry 97 04/12/19 07:48 Oxygen Delivery Method Room Air 04/12/19 07:48 Oxygen Flow Rate 0 04/12/19 07:48 Pain Level 0 04/12/19 07:48 Intake & Output 04/11/19 04/12/19 04/12/19 23:59 11:59 23:59 Intake Total 1350 / 2070 730 / 1070 340 / 1070 Balance 1350 / 2070 730 / 1070 340 / 1070 Weight 147.7 kg Intake: IV 220 / 480 250 / 350 100 / 350 Oral 1130 / 1590 480 / 720 240 / 720 Other: Urine Color Yellow Urine Appearance Clear Clear Urine Odor Normal Comment per pt Patient voiding ad jeffery Stool Characteristics Soft Voiding Methods Toilet Toilet Laboratory Results WBC 7.76 k/cumm (4.4-10.8) 04/10/19 06:20 RBC 4.32 m/cumm (4.50-6.00) L 04/10/19 06:20 Hgb 13.0 g/dL (13.5-17.5) L 04/10/19 06:20 Hct 40.3 % (40.0-50.0) 04/10/19 06:20 MCV 93.3 fL (80-95) 04/10/19 06:20 MCH 30.1 pg (27.0-33.0) 04/10/19 06:20 MCHC 32.3 g/dL (32.0-36.0) 04/10/19 06:20 RDW 14.7 % (11.8-14.1) H 04/10/19 06:20 Plt Count 453 x1000/uL (130-400) H 04/10/19 06:20 MPV 8.4 fL (8.0-11.0) 04/10/19 06:20 Immature Gran % 0.9 % 04/10/19 06:20 Neutrophils % 60.2 04/10/19 06:20 Lymphocytes % 27.8 04/10/19 06:20 Monocytes % 8.5 04/10/19 06:20 Eosinophils % 1.7 04/10/19 06:20 Basophils % 0.9 04/10/19 06:20 Absolute Neutrophils 4.67 k/cumm (1.2-6.7) 04/10/19 06:20 Absolute Lymphocytes 2.16 k/cumm (1.2-3.4) 04/10/19 06:20 Absolute Monocytes 0.66 k/cumm (0.11-0.7) 04/10/19 06:20 Absolute Eosinophils 0.13 k/cumm (0.0-0.7) 04/10/19 06:20 Absolute Basophils 0.07 k/cumm (0.0-0.2) 04/10/19 06:20 Sodium 140 mmol/L (136-145) 04/10/19 06:10 Potassium 4.0 mmol/L (3.5-5.1) 04/10/19 06:10 Chloride 106 mmol/L (98-107) 04/10/19 06:10 Carbon Dioxide 26.8 mmol/L (21.0-32.0) 04/10/19 06:10 Anion Gap 7.2 mmol/L (3-11) 04/10/19 06:10 BUN 18 mg/dL (7-18) 04/10/19 06:10 Creatinine 0.95 mg/dL (0.70-1.30) 04/10/19 06:10 Estimated GFR/1.73 m2 >= 60.00 (mL/min/1.73m2) 04/10/19 06:10 Glucose 105 mg/dL (74-106) 04/10/19 06:10 Calcium 8.5 mg/dL (8.5-10.1) 04/10/19 06:10 C-Reactive Protein 0.28 mg/dL (0.0-0.3) 04/10/19 06:10
[2019-04-13] MEDS: Normal Saline Flush 10 ML SYR IVP ×4 (00:18→16:25)
[2019-04-13] MEDS: Normal Saline 500 ML 30 ML IV (00:19)
[2019-04-13] MEDS: Penicillin G POT. 3,000,000 UNITS in Normal Saline 50 ML 100 UNITS IVPB ×5 (00:21→16:21)
[2019-04-13] MEDS: CLINDAMYCIN 900 MG/50 ML BAG 50 MG IVPB ×2 (01:28→10:34)
[2019-04-13 07:30] VITALS: BP 133/77; PULSE 65; RESP 20; TEMP 37; O2SAT 95
[2019-04-13 07:51] LABS: Abs Immature Grans 0.07 k/cumm (0.0-0.09); Absolute Basophil Count 0.07 k/cumm (0.0-0.2); Absolute Eosinophil Count 0.16 k/cumm (0.0-0.7); Absolute Lymphocyte Count 2.32 k/cumm (1.2-3.4); Absolute Monocyte Count 0.69 k/cumm (0.11-0.7); Absolute Neutrophil Count 3.32 k/cumm (1.2-6.7); Basophils % 1.1; Eosinophils % 2.4; HCT 39.6 % (40.0-50.0); HGB 12.8 g/dL (13.5-17.5); Immature Grans % 1.1 %; Mean Corp. HGB Concentration 32.3 g/dL (32.0-36.0); Mean Platelet Volume 8.4 fL (8.0-11.0); Monocytes % 10.4; Platelet Count 403 x1000/uL (130-400); RBC 4.26 m/cumm (4.50-6.00); RBC Distribution Width 14.7 % (11.8-14.1); White Blood Cell Count 6.63 k/cumm (4.4-10.8)
[2019-04-13 08:04] LABS: Anion Gap 8.4 mmol/L (3-11); BUN 18 mg/dL (7-18); CO2 27.6 mmol/L (21.0-32.0); CREATININE 0.99 mg/dL (0.70-1.30); Calcium 8.2 mg/dL (8.5-10.1); Chloride 106 mmol/L (98-107); Glucose 99 mg/dL (74-106); Potassium 3.8 mmol/L (3.5-5.1); Sodium 142 mmol/L (136-145)
[2019-04-13] MEDS: Carvedilol 6.25 MG TAB PO ×2 (08:40→20:23)
[2019-04-13] MEDS: hydrALAZINE 10 MG TAB 30 MG PO ×3 (08:40→20:24)
[2019-04-13] MEDS: Lisinopril 20 MG TAB 40 MG PO (08:40)
[2019-04-13] MEDS: Apixaban 5 MG TAB PO ×2 (08:40→20:23)
[2019-04-13] MEDS: Benzonatate 200 MG CAP PO ×3 (08:40→20:23)
[2019-04-13] MEDS: Furosemide 20 MG TAB PO ×2 (08:41→16:22)
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
[2019-04-13 14:57] VITALS: BP 128/69; PULSE 72
--- NOTE | 2019-04-13 15:08 | PTTR_ITS ---
Date of service: 04/13/19 Time of Service: 12:56 PT Notes Visit Reasons: CELLULITIS RIGHT Inpatient Physical Therapy Treatment Note [facility] Date: 04/13/2019 PRECAUTIONS: Fall. Standard. Activity as tolerated. SUBJECTIVE: Patient reports being comfortable about using a single point cane for all mobility ADL performance. He hopes that with the facilitation and coordination of Home Health PT, he can get the recommended CircAid garments he needs. OBJECTIVE: R leg edema more than the left. Erythema and warmth significantly resolved. Nurse and nurse student were present during the early part of session. PAIN: reported discomofrt on L knee during stair negotiation. BED MOBILITY/TRANSFERS Rolling L/R: Independent Supine-sit: Independent Sit-supine: Independent Sit-stand: Independent Stand-sit: Independent Bed-Chair: Independent Chair-bed: Independent GAIT Assistive Device: Single-point cane Weight bearing: Full weightbearing Assist: Independent on level surfaces. Supervision with stair negotiation. Distance: 120 feet x 2. Deviation: Using cane on one side and a rail on the other side with step to gait pattern STAIRS: Supervision with negotiating 2 flights of 12 steps with one hand holding onto a rail in the other hand onto a single-point cane using step to gait pattern. Minimal verbal cues for correct gait pattern given Assessment: Patient is a 58-year-old male admitted to this hospital on 03/24/2019 with diagnosis of sepsis due to group B streptococcus with acute organ dysfunction, chronic lymphedema, acute kidney injury, and diarrhea. Patient was put on antibiotic regimen with last day of administration today with plan of discharge to home with services tomorrow. Referral was sent in on 04/12/2019 to assess for safety and provide recommendations to address chronic lymphedema. Plan of Care/Treatment Plan: 1-2x/day, 7 days/week x 1 week. Plan of care has been reviewed with the X RAY CONTROL EQUIPMENT REPAIRER providing the service under Physical Therapy direction. Initiate Physical Therapy intervention for strengthening, bed mobility, transfers, gait, stairs, balance training, use of assistive device. DISCHARGE RECOMMENDATIONS: Patient will benefit from Home Health PT services for provision of complete decongestive therapy and for the procurement of custom- fitted 30 mmHg CircAid/JuxtaLite knee-high and feet compression garments to provide adequate containment of B LE chronic lymphedema. He will also benefit from proper orthopedic footwear once cleared by automatic spooler operator in order to protect skin, reduce rate of reinfection, and while providing containment of bilateral feet edema. He will benefit from the use of an aluminum, adjustable, single- point cane in order to maximize safety of community ambulation to and from from place of work. TREATMENT CODE/TIME: 11284 x 19 minutes beginning at 12:56 PM.
--- NOTE | 2019-04-13 17:07 | CMACTNOTE_ITS ---
- If Service Date Differs Date of service: 04/13/19 Time of Service: 17:07 Care Management Activity Note S/O: Marcin was sitting up in bed when CM met with him. He expressed his concern regarding support at home when he discharges, which will likely be tomorrow. His IV Abx treatment ends today. He will be transitioned to oral abx at home. CM advised that he would have support at home via HH RN and PT, per provider. PT is recommending a cane for ambulation, which may not be covered by his insurance, but CM will inquire with [facility] in the morning prior to discharge. Marcin reported that he is agreeable to going home, as he feels that he will be more comfortable there, although he is grateful for the care he has received at [facility]. CM will continue to follow. A: Marcin is a 58 year old male admitted to [facility] for IV abx treatment. P: Anticipate Marcin will transition to oral abx today and will discharge home tomorrow with new orders of HH RN and PT. CM will attempt to coordinate a cane through [facility] prior to discharge. He will transport via private vehicle by friends vs RCT. He will follow up with his PCP and specialists, as recommended. CM will continue to follow and support discharge planning considerations.
[2019-04-14 07:00] VITALS: BP 171/87; PULSE 64; RESP 17; TEMP 36.8; O2SAT 96
[2019-04-14] MEDS: Apixaban 5 MG TAB PO (08:43)
[2019-04-14] MEDS: Lisinopril 20 MG TAB 40 MG PO (08:43)
[2019-04-14] MEDS: Furosemide 20 MG TAB PO (08:43)
[2019-04-14] MEDS: hydrALAZINE 10 MG TAB 30 MG PO ×2 (08:43→14:07)
[2019-04-14] MEDS: Carvedilol 6.25 MG TAB PO (08:43)
[2019-04-14] MEDS: Benzonatate 200 MG CAP PO ×2 (08:43→14:07)
[2019-04-14] MEDS: Silver Nitrate Stick 1 EACH MC (09:37)
--- NOTE | 2019-04-14 09:43 | W.PM.PROGNOT ---
Date of Service Date of service: 04/14/19 Time of Service: 09:43 Subjective Subjective Patient reports: no new complaints and feels better Interval history since last seen: 58-year-old male is seen at bedside. He is sitting up eating breakfast. He states he is feeling pretty good today and is looking forward to going home. He has no complaints of pain in either lower extremity. He has completed his scheduled course of IV antibiotics for cellulitis of his lower extremities with sepsis. Exam Narrative Exam Narrative: Marcin looks in his usual state of health. He is awake alert and oriented. I have been asked to reassess his wound on his right foot as part of his discharge planning. Once again, this wound was initiated when he stepped on glass at home. He broke a glass and within 2 days stepped on a shard that he failed to clean up initially. He noted it immediately and remains steadfast in his defense of this wound. Vitals BP is 171/87 pulse 64 respiration 18 temp 36.8 O2 sat at room air is 96% Labs yesterday RBCs 4.26 hemoglobin 12.8 hematocrit 39.6 platelets of 403 calcium is 8.2 Physical exam: Both lower extremities are wrapped in Horacio wraps from the base of the toes to the tibial tuberosities. These dressings are not removed nursing reports that the swelling is significantly reduced and the cellulitis has resolved. He has a superficial wound on the plantar lateral aspect of his right foot behind and slightly medial to the fifth metatarsal head. There is a hypertrophic border, the base of the wound is somewhat pale in appearance and there was scant serous drainage on the Mepilex dressing that I removed. There is absolutely no erythema cellulitis or signs of infection. The wound measures 1.2 x 1.4 cm and is less than 1 mm deep. Ultrasound was performed previously and was negative for foreign bodies. The remaining exam is otherwise benign Impressions: Traumatic wound plantar aspect right foot slow to heal Plan: The wound was sharply debrided with a #15 scalpel freshening the base of the wound as well. He is neurologically intact and the wound is very tender with manipulation. There was nothing suspicious about this wound to imply that this is a neoplasm. I will consider biopsying it however if he fails to respond as a typical wound should. I applied silver nitrate to the base of the wound and will continue with a collagen dressing Mepilex secondary changing it upon discharge to every 2 to 3 days depending on drainage.. There is no need from a podiatric perspective to continue with antibiotics and I will see him in the office in approximately 2 weeks. Home health should continue with the wound care consisting of washing the foot soap and water gently drying and applying collagen gauze dressing Mepilex bordered dressing every 2 to 3 days depending on drainage he is to ambulate utilizing a surgical shoe. All questions were answered to Marcin's satisfaction thank you for this consultation. Objective Objective Clinical Data: Vital Signs Temperature 36.8 C 04/14/19 07:00 Temperature Source Tympanic 04/14/19 07:00 Pulse 64 04/14/19 07:00 Pulse Rhythm Regular 04/14/19 01:38 Respiratory Rate 17 04/14/19 07:00 Respiratory Effort 04/14/19 01:38 Respiratory Depth Normal 04/14/19 01:38 Respiratory Pattern Normal 04/13/19 20:00 Blood Pressure 171/87 H 04/14/19 07:00 Pulse Oximetry 96 04/14/19 07:00 Oxygen Delivery Method Room Air 04/14/19 07:00 Oxygen Flow Rate 0 04/14/19 07:00 Pain Level 0 04/14/19 07:00 Intake & Output 04/13/19 04/14/19 04/14/19 18:59 06:59 18:59 Intake Total 2250.5 / 2730.5 480 / 2730.5 0 / 0 Balance 2250.5 / 2730.5 480 / 2730.5 0 / 0 Weight 149.9 kg Intake: IV 470.5 / 470.5 Oral 1780 / 2260 480 / 2260 0 / 0 Other: Urine Color Yellow Yellow Urine Appearance Clear Clear Clear Comment pt voids independently in toilet Urine not seen, voiding independently. Denies any issues. per patient Stool Size Moderate Stool Characteristics Formed Voiding Methods Toilet Toilet Toilet Laboratory Results WBC 6.63 k/cumm (4.4-10.8) 04/13/19 07:24 RBC 4.26 m/cumm (4.50-6.00) L 04/13/19 07:24 Hgb 12.8 g/dL (13.5-17.5) L 04/13/19 07:24 Hct 39.6 % (40.0-50.0) L 04/13/19 07:24 MCV 93.0 fL (80-95) 04/13/19 07:24 MCH 30.0 pg (27.0-33.0) 04/13/19 07:24 MCHC 32.3 g/dL (32.0-36.0) 04/13/19 07:24 RDW 14.7 % (11.8-14.1) H 04/13/19 07:24 Plt Count 403 x1000/uL (130-400) H 04/13/19 07:24 MPV 8.4 fL (8.0-11.0) 04/13/19 07:24 Immature Gran % 1.1 % 04/13/19 07:24 Neutrophils % 50.0 04/13/19 07:24 Lymphocytes % 35.0 04/13/19 07:24 Monocytes % 10.4 04/13/19 07:24 Eosinophils % 2.4 04/13/19 07:24 Basophils % 1.1 04/13/19 07:24 Absolute Neutrophils 3.32 k/cumm (1.2-6.7) 04/13/19 07:24 Absolute Lymphocytes 2.32 k/cumm (1.2-3.4) 04/13/19 07:24 Absolute Monocytes 0.69 k/cumm (0.11-0.7) 04/13/19 07:24 Absolute Eosinophils 0.16 k/cumm (0.0-0.7) 04/13/19 07:24 Absolute Basophils 0.07 k/cumm (0.0-0.2) 04/13/19 07:24 Sodium 142 mmol/L (136-145) 04/13/19 07:24 Potassium 3.8 mmol/L (3.5-5.1) 04/13/19 07:24 Chloride 106 mmol/L (98-107) 04/13/19 07:24 Carbon Dioxide 27.6 mmol/L (21.0-32.0) 04/13/19 07:24 Anion Gap 8.4 mmol/L (3-11) 04/13/19 07:24 BUN 18 mg/dL (7-18) 04/13/19 07:24 Creatinine 0.99 mg/dL (0.70-1.30) 04/13/19 07:24 Estimated GFR/1.73 m2 >= 60.00 (mL/min/1.73m2) 04/13/19 07:24 Glucose 99 mg/dL (74-106) 04/13/19 07:24 Calcium 8.2 mg/dL (8.5-10.1) L 04/13/19 07:24 C-Reactive Protein 0.28 mg/dL (0.0-0.3) 04/10/19 06:10
--- NOTE | 2019-04-14 12:44 | PT.INTREAT ---
Date of service: 04/14/19 Time of Service: 12:44 PT Notes Visit Reasons: CELLULITIS RIGHT 04/14/19 SUBJECTIVE: Marcin stating he is going home later today. His stomach feels a little upset at the moment but he is agreeable to PT treatment. OBJECTIVE: Seated in recliner when this therapist enters. GAIT/TRANSFERS: Observed yesterday with independence. THEREX: Instruct pt in a HEP for light UE/LE strengthening. Pt performs some reps of each exercise but was not up to performing full reps today due to his stomach. Pt was given a thera band for increased resistance for his UE's. See flow sheet. LAQ, seated may, sit to stand, Shoulder horizontal abduction, biceps and shoulder flexion. ASSESSMENT: Good understanding of his home program. Pt able to perform these exercises without increase in pain. PLAN: Pt to be discharged home. See discharge summary for details. Treatment time: Bekah Alfaro, PABLO
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
--- NOTE | 2019-04-14 13:40 | PDOC.HHF2F ---
Home Health Certification Home Health Certification: 1. Encounter Date and Reason I certify that JAUN RODRIGEZ was seen by Lolly Vidal on 04/14/19 and that I had a [id number] encounter with this patient that meets the physician face to face encounter requirements. 2. Clinical Findings Supporting Skilled Need and Homebound Status I certify that home health services are medically necessary, include either intermittent alf and/or physical/speech therapy, and that this patient is homebound in that absences from the home require considerable and taxing effort and are infrequent or of short duration, or are attributable to the need to receive medical care. [X] (a) Attached documentation from encounter provides clinical findings supporting skilled need and homebound status (including what assistance patient requires to leave the home). The encounter with the patient was in whole, or in part, for the following medical condition, which is the primary reason for home health care: CELLULITIS RIGHT Custodial: Patient would benefit from nursing services to help with wound care. Physical Therapy: Patient will benefit from PT/OT to improve mobility,\ and for lymphedema care Speech Therapy: Homebound: Unable to leave home without assistance. 3. Certification and Authentication I certify that I composed the above information based on my clinical judgement relating to this patient's medical condition and, if applicable, clinical findings communicated to me by the NPP or inpatient physician who performed the Home Health Referral. All further orders will be obtained through (Community Based Physician - PCP)
[2019-04-14] MEDS: Bacitracin 1 PACKET (15:37)
--- NOTE | 2019-04-14 18:00 | PDOC.CMDIS ---
- If Service Date Differs Date of service: 04/14/19 Time of Service: 18:00 LACE Index Scoring Tool - Questions: Length of Stay (in days): 7 - 13 Acuity (Admit via E.D.?): No Comorbidities: Mild Liver/Renal Disease E.D. Visits: 1 - Answers: Total Score: 8 Risk of Readmission: Low Risk Care Management Discharge Reason for Hospitalization: IV ABX, wound care Discharge Plan: Marcin will return home with new orders for HH RN, PT, OT, BENCH PRECISION ASSEMBLER. He will have increased moderate needs for 4-6 weeks. CM [facility] His friend will drive him home via private vehicle. He will follow up with his PCP and Dr. Collins, as recommended. Patient/Family Education Needs: Review discharge instructions regarding activity levels and medications, discussion of self care needs including ask me three Services Needed at Discharge: DME Agency ([facility]), Home Health Care Services (RN, PT, OT, BENCH PRECISION ASSEMBLER)
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
== END 2019-04-14 15:38 | disposition home or self-care (01) | DRG 602 ==
PROVIDERS: Family Medicine; Internal Medicine; Admitting Provider Internal Medicine; PCP Family Medicine; Visit Provider Internal Medicine
DX: L03.115 Cellulitis of right lower limb (principal); A40.1 Sepsis due to streptococcus, group B; Z79.2 Long term (current) use of antibiotics; I89.0 Lymphedema, not elsewhere classified; I10 Essential (primary) hypertension; G47.33 Obstructive sleep apnea (adult) (pediatric); S91.321D Laceration with foreign body, right foot, subsequent encounter; X58.XXXD Exposure to other specified factors, subsequent encounter; Z79.01 Long term (current) use of anticoagulants
CPT/HCPCS: 36415; 80048; 97110; 97162; 97530; 99233; 99239; 99306; 99308; 99316; 85025; 86140; J2540

== ENCOUNTER 2020-10-24 10:57 | Outpatient (REF) | payer MEDICAID, SELFPAY ==
[2020-10-24 14:56] LABS: HCT 45.7 % (40.0-50.0); HGB 14.7 g/dL (13.5-17.5); MCH 30.3 pg (27.0-33.0); MCHC 32.2 % (32.0-36.0); MCV 94.2 fL (80-95); MPV 9.6 fL (8.0-11.0); Platelet Count 212 10^3/uL (130-400); RBC 4.85 10^6/uL (4.36-5.78); RDW 13.2 % (11.8-14.1); RDW-SD 46.2 fL
[2020-10-24 19:35] LABS: Anion Gap 6.1 mmol/L (3-11); BUN 12 mg/dL (7-18); CO2 28.9 mmol/L (21.0-32.0); CREATININE 1.1 mg/dL (0.70-1.30); Chloride 107 mmol/L (98-107); Glucose 105 mg/dL (74-106); Potassium 3.9 mmol/L (3.5-5.1); Sodium 142 mmol/L (136-145)
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
[2020-12-10 15:05] VITALS: BMI 50.3
== END 2020-10-24 10:58 | disposition home or self-care (01) ==
LOC: LBN 10:57
PROVIDERS: PCP Family Medicine; Visit Provider Family Medicine
DX: I10 Essential (primary) hypertension (principal); K92.1 Melena
CPT/HCPCS: 80048; 85027

== ENCOUNTER 2020-12-24 14:32 | Outpatient (REF) | payer MEDICAID, SELFPAY ==
[2020-12-24 14:30] LABS: Source Nasal/Nares
[2020-12-24 20:55] LABS: COVID-19 PCR Negative (Negative)
== END 2020-12-24 14:33 | disposition home or self-care (01) ==
LOC: LBN 14:32
PROVIDERS: PCP Family Medicine; Visit Provider Surgery
DX: Z20.822 Contact with and (suspected) exposure to COVID-19 (principal); Z01.818 Encounter for other preprocedural examination
CPT/HCPCS: 87635

== ENCOUNTER 2020-12-25 09:55 | Day surgery (SDC) | payer MEDICAID, SELFPAY ==
[2020-12-25] VITALS (7 sets, daily range): BP systolic 85–199; BP diastolic 64–99; PULSE 76–86; RESP 13–21; TEMP 36.1–37.1; O2SAT 95–98; BMI 50.3
--- NOTE | 2020-12-25 06:49 | COLE_ITS ---
Colonoscopy Report Date of procedure: 12/25/20 Pre-op diagnosis general: Hx of polyps and rectal bleeding Post-op diagnosis procedure note: other (polyps, diverticulosis, small internal hemorrhoids) Procedure: Colonoscopy with polypectomy Surgeon: Kimberly Garcia Anesthesia Type: General:No Airway (Jesus Pizano, SAIDA) Estimated blood loss (mL): 5 Pathology: other (cecal polyps x2, Ascending polyps x4, descending polyp and rectal polyp) Complications: Other (difficult airway with easy obstruction. ) Disposition: same day Indications: Mr. House is a 60-year-old gentleman who is due for a colonoscopy. He has had several polyps in the past. His last colonoscopy was 2019 where he was noted to have a 1 cm tubular adenoma. He also describes some intermittent rectal bleeding which sounds like an internal hemorrhoid. He also has loose stools which has been going on for quite some time. No abdominal pain or melena. Risks benefits and complications of the procedure were reviewed with him. He will stop Eliquis 3 days prior to his procedure. Because of his BMI I will also have anesthesia look at his chart. Risks, benefits and complications have been reviewed. Complications include but are not limited to bleeding, pain, perforation, missed small lesion/polyp, sore throat, aspiration and adverse reaction to the medications. Questions were entertained and answered to their satisfaction and they wished to proceed. No guarantees were given or implied. Proceed with colonoscopy under sedation Prep: Miralax/Dulcolax Procedure Start Time: 12:46 Procedure End Time: 13:25 Retraction Time: 28 minutes Findings: 1. small internal hemorrhoids 2. Diverticulosis 3. 8 polyps, One ascending polyp was sessile and > 1 cm in size Procedure Description: After informed consent was obtained the patient was taken to the procedure room and placed in a left decubitous position. Monitors were applied and a time out was done. The patients name, date of , procedure, allergies to medications and metal in their body was reviewed. The patient was then sedated. Once sedated and comfortable a rectal exam was done. External exam was normal. Internal exam revealed a normal sphincter tone and no palpable masses. I was unable to palpate the prostate due to the patients body habitus. The scope was then introduced and retro-flexed. Grade 1 internal hemorrhoids x2 noted on retro-felxion. No polyps or masses were identified on retro-flexion. The scope was then advanced to the cecum without difficulty. The ileocecal vlave and appendiceal orifice were identified. The prep was adequate. The scope was introduced into the terminal ileum which was normal. The scope was then slowly retracted over 28 minutes back into the rectum. Polyps were removed with cold forceps in the cecum x2, ascending colon x3, descending colon x1 and rectum x1. There was moderate descending and sigmoid diverticulosis noted. The scope was removed and the patient was woken up and taken back to the recovery room in stable condition. The patient tolerated the procedure well and there were no immediate complications. Follow up: The patient should follow up in 3-5 years unless they develop changes in bowel habits or other new gastrointestinal complaints. Note: Due to the patient BMI of 50 and his weight distribution his airway was difficult to mantaine throughout the case. In the future he will need to have his colonoscopies done at [facility] or if emergent will need to be done under general anesthesia.
--- NOTE | 2020-12-25 06:50 | W.PM.DSUDISC ---
Discharge Plan Disposition Patient Disposition: HOME Condition: Good Discharge Details Reason For Visit: Colonoscopy Attending Provider: Kimberly Garcia Primary Care Provider: Jeovany Logan Home Meds and New Rx's Prescriptions: Continued cetirizine 10 mg capsule 10 mg PO DAILY RF: 0 doxazosin 1 mg tablet 1 mg PO QHS RF: 0 Eucerin Cream 1 applic topical DAILY RF: 0 loperamide [Anti-Diarrheal (loperamide)] 2 mg tablet 2 mg PO QID PRNRF: 0 Lactinex 1 million cell tablet,chewable 1 tab PO DAILY RF: 0 lisinopril 40 MG tablet 40 mg PO DAILY RF: 0 Eliquis 5 MG tablet 5 mg PO BID Qty: 60 RF: 0 hydralazine 10 mg tablet 40 mg PO TID Qty: 3 RF: 0 carvedilol [Coreg] 6.25 mg Tablet 6.25 mg PO BID Qty: 14 RF: 0 furosemide 20 mg Tablet 20 mg PO BID@0830,1600 Qty: 14 RF: 0 Bio-K plus 50 billion cell Capsule,Delayed Release(Dr/Ec) 1 cap PO DAILY Qty: 14 RF: 0 Discharge Instructions Instructions: Hemorrhoids (DC), Diverticulosis (DC), Colorectal Polyps (DC) Additional Instructions: Findings: 1. small internal hemorrhoids 2. Polyps x8 3. Diverticulosis Follow up: 3-5 years Please call if you develop: fevers >101.5 Nausea or Vomiting Abdominal pain that is not transient Rectal bleeding that is more then a tbsp A hard abdomen and inability to pass gas DAY SURGERY UNIT POST ENDOSCOPY INSTRUCTIONS Instructions for everyone who is given Anesthesia: For your safety, please do the following for the next 24 Hours: a. Do not drive or operate dangerous equipment b. Do not drink alcohol beverages or use any recreational drugs for the first 24 hours or while taking pain medications. The medications in your body may have a reaction that can be dangerous. c. Do not make any important decisions or sign any important papers 1. Generally there are no restrictions on your activity after a day or so has gone by, but you may feel a bit fatigued for a few days. 2. After you arrive home you may have a light meal and return to a normal diet as you can tolerate it without feeling sick to your stomach. 3. After surgery, you may feel pain or discomfort. This should be only transient, but if it persists please contact your doctor. 4. If there are any questions regarding the findings of your procedure, please feel free to contact your doctor. 6. If you are unable to contact your doctor with a problem, contact the hospital at [phone]. 7. Continue all your regular medications unless directed otherwise. I understand the above instructions and have no questions. Signature of Patient or Responsible Adult Escort Date/Time Name of Responsible Adult Escort Signature of Nurse Date/Time Activity:: Activity as Tolerated Diet:: high fiber diet Discharge Orders Discharge Orders: Discharge Order (Routine); Ordered 12/25/20 Ordered By: Kimberly Garcia
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
[2020-12-25] MEDS: Lactated Ringers 1,000 ML 80 ML IV (12:35)
--- NOTE | 2020-12-25 12:45 | W.ANESVAS ---
Midline Placement Date Performed: 12/25/20 Procedure Time: 12:30 Requesting Provider: Kimberly Garcia Procedure Location: Day Surgery Unit Sedation Given (Indicate Dose Given): No Sedation given Patient Mental Status: Awake Sterility: Hand Hygiene, Surgical Cap, Surgical Mask and Chlorhexidine Laterality: Right Insertion Site: Brachial Midline Device: PowerGlide Pro 20G Catheter Length: 10 cm Midline Procedure Procedure: 1% Lidocaine to skin and subcutaneous tissue with 25g needle, Vessel accessed with catheter over needle, Guidewire placed with ease, Catheter placed without resistance and Guidewire removed Dressing: Tegaderm Applied Blood Return: Present Flushes: Easily Ultrasound: Sterile probe cover and gel used Ultrasound Image Saved?: Yes Number of Attempts (See previous attempts in note section): 1 Procedure Tolerated: No Complications and Patient tolerated well Procedure Outcome: Successful Procedure Comment:: Asked to stat IV due to multiple failed attempt on this gentleman. Decision made to place midline with good effect. Performed By: Duke Avalos
--- NOTE | 2020-12-25 12:55 | BOWEL_PTH ---
PATIENT: Marcin House LOC: [facility] U#:[id number] AGE/SX: 60/M ROOM: RE12/25/[address]: Kimberly Garcia MD : 1960 BED: DIS: 12/25/2020 SPEC #: [id number] RECD: 12/25/20 17:01 STATUS: SU RE #: [id number] [place]: 12/25/20 12:[address]: Kimberly Garcia DEPT: Surgical Specimen RECD BY: Maxine Gannon ENTERED: 12/25/20 17:02 SP TYPE: Bowel OTHR DR: Jeovany Logan Tissues: 1 - BIOPSY BOWEL 2 - BIOPSY BOWEL 3 - BIOPSY BOWEL 4 - BIOPSY BOWEL Procedures: GROSS AND MICRO LEVEL 4 Comments: [id number]
[2020-12-25] MEDS: Ketorolac 30 MG/ML VIAL IVP (13:43)
--- NOTE | 2020-12-25 14:27 | W.ANESPOSTOP ---
Postoperative Evaluation Date, Time and Location Date Performed: 12/25/20 Time Performed: 14:27 Patient Location: Day Surgery Unit Vital Signs Most Recent Imported Vital Signs: Most Recent Vital Signs Temp Pulse Resp BP Pulse Ox 36.1 C L 84 18 172/95 H 97 12/25/20 14:07 12/25/20 14:07 12/25/20 14:07 12/25/20 14:07 12/25/20 14:07 Pain Score Most Recent Pain Score: Most Recent Pain Score Pain Level 7 12/25/20 13:30 Assessment Mental Status: Awake (Alert & Oriented to Patient Baseline) Airway and Respiratory Function: Patent airway with normal (patient baseline) respiratory exam Cardiovascular Function: Hemodynamically Stable Hydration Status: Adequately Hydrated Nausea & Vomiting: No Nausea or Vomiting Pain: Pain is tolerable per patient (BP elevated with pain. BP is dropping with treated pain. Patient okay to go home if he is comfortable.) Peripheral Nerve Block: Patient did not receive a nerve block
== END 2020-12-25 15:05 | disposition home or self-care (01) ==
LOC: SUR 09:56
PROVIDERS: PCP Family Medicine; Visit Provider Surgery
PROC: 0DJD8ZZ Inspection of Lower Intestinal Tract, Via Natural or Artificial Opening Endoscopic (ICD-10-PCS; CPT 45378; principal; 2020-12-25 11:45)
DX: K62.5 Hemorrhage of anus and rectum (principal); D12.0 Benign neoplasm of cecum; D12.2 Benign neoplasm of ascending colon; D12.4 Benign neoplasm of descending colon; K62.1 Rectal polyp; K57.30 Diverticulosis of large intestine without perforation or abscess without bleeding; K64.0 First degree hemorrhoids; I48.91 Unspecified atrial fibrillation; Z86.010 Personal history of colon polyps; E66.01 Morbid (severe) obesity due to excess calories; Z68.43 Body mass index [BMI] 50.0-59.9, adult
CPT/HCPCS: 45380; 88305; J1885; J2001

== ENCOUNTER 2021-10-15 15:18 | Outpatient (REF) | payer MEDICAID, SELFPAY ==
[2021-10-15 15:01] LABS: HCT 43.9 % (40.0-50.0); HGB 14.8 g/dL (13.5-17.5); MCH 30.6 pg (27.0-33.0); MCHC 33.7 % (32.0-36.0); MCV 91 fL (80-95); MPV 9.3 fL (8.0-11.0); Platelet Count 217 10^3/uL (130-400); RBC 4.84 10^6/uL (4.36-5.78); RDW 13.4 % (11.8-14.1); RDW-SD 44.8 fL; WBC 7.48 10^3/uL (4.4-10.8)
[2021-10-15 15:08] LABS: ALT 38 U/L (16-63); AST 34 U/L (15-37); Albumin 3.8 g/dL (3.4-5.0); Alkaline Phosphatase 59 U/L (46-116); Anion Gap 9.6 mmol/L (3-11); BUN 13 mg/dL (7-18); Bilirubin, Total 0.6 mg/dL (0.2-1.0); CO2 26.4 mmol/L (21.0-32.0); CREATININE 0.9 mg/dL (0.70-1.30); Calcium 8.8 mg/dL (8.5-10.1); Chloride 105 mmol/L (98-107); Glucose 91 mg/dL (74-106); Magnesium 2.2 mg/dL (1.8-2.4); Potassium 3.6 mmol/L (3.5-5.1); Sodium 141 mmol/L (136-145); Total Protein 7.4 g/dL (6.4-8.2)
[2021-10-15 15:34] LABS: Hemoglobin A1C 5.7 % (<5.7)
== END 2021-10-15 15:19 | disposition home or self-care (01) ==
LOC: NCHCN 15:18
PROVIDERS: PCP Family Medicine; Visit Provider Family Medicine
DX: I89.0 Lymphedema, not elsewhere classified (principal); Z13.1 Encounter for screening for diabetes mellitus; F10.10 Alcohol abuse, uncomplicated; C18.9 Malignant neoplasm of colon, unspecified; I10 Essential (primary) hypertension
CPT/HCPCS: 80053; 85027; 83036; 83735

== ENCOUNTER 2023-03-23 08:43 | Inpatient (IN) | payer MEDICAID, SELFPAY ==
[2023-03-23] VITALS (15 sets, daily range): BP systolic 134–174; BP diastolic 66–81; PULSE 71–95; RESP 16–18; TEMP 36.6–37.1; O2SAT 93–98
--- NOTE | 2023-03-23 | DI.CT_ITS ---
Exam(s) CT LOWER EXTREMITY RT W EXAM: CT LOWER EXTREMITY RT W CLINICAL HISTORY: cellulitis, open wounds. TECHNIQUE: Imaging Protocol: Axial computed tomography images with coronal and sagittal reformatted images were created and reviewed. CONTRAST MATERIAL: Intravenous: Omnipaque 350 Contrast volume:100 cc contrast route:IV - COMPARISON: CT CT LOWER EXTREMITY RT W from 03/25/2019 CR XR TIB/FIB LT from 03/23/2023 FINDINGS: Soft tissues: There is diffuse subcutaneous edema in the lower half of the right thigh and throughout the entire right catheterization and extending into the foot. There is no distinct focal abscess. There is no radiopaque foreign body evident. There is a small knee joint effusion. No intramuscular abscess. No obvious skin ulcers. Osseous: No significant osseous findings. No fractures at and below the hip level. No evidence of o steomyelitis. There are moderate degenerative changes in the medial compartment of the knee. Mild d egenerative changes in the hip. No significant osseous lesions. No evidence of osteomyelitis. IMPRESSION: Severe diffuse cellulitis involving the entire calf and lower thigh and extending into the foot. No distinct focal abscess. No radiopaque foreign body. No evidence of osteomyelitis. No fractures. RADIATION DOSE DELIVERED: 819.43mGy.cm Total DLP DATA REPOSITORY: All CT scans at this facility are submitted to the National Radiology Data Registry (NRDR) Dose Index Registry (DIR) with the [employer] ([employer]). RADIATION OPTIMIZATION: All CT scans at this facility use at least one of these dose optimization te chniques: automated exposure control; mA and/or kV adjustment per patient size (includes targeted exa ms where dose is matched to clinical indication); or iterative reconstruction.
--- NOTE | 2023-03-23 09:00 | DI.RAD_ITS ---
Exam(s) XR TIB/FIB LT EXAM: XR TIB/FIB LT CLINICAL HISTORY: open wound ulcerations. TECHNIQUE: 2D digital imaging was performed. COMPARISON: No exams were available for comparison FINDINGS: Four views There is prominent edema in the subcutaneous tissues throughout the calf and also above the knee in t he visualized lower thigh. No evidence of tibial plateau fracture nor other fractures evident in the tibia and fibula. No evide nce of osteomyelitis. No radiopaque foreign body. No osseous lesions. Bone density is age-appropri ate. IMPRESSION: No acute osseous findings in the tibia and fibula. Abundant edema noted in the soft tissues of the c fci. DATA REPOSITORY: RADIATION DOSE DELIVERED:
--- NOTE | 2023-03-23 09:00 | DI.RAD_ITS ---
Exam(s) XR ANKLE RT COMPLETE EXAM: XR ANKLE RT COMPLETE CLINICAL HISTORY: open wounds, laceration. TECHNIQUE: 2D digital imaging was performed. COMPARISON: No exams were available for comparison FINDINGS: 3 views There is severe edema throughout the calf and ankle region. No evidence of acute fracture nor wideni ng the ankle mortise. There are some degenerative changes in the tibiotalar-ankle joint. Moderate s ize inferior calcaneal spur noted. Enthesophyte at the insertional aspect of the Achilles on the pos terior calcaneus evident. No significant osseous lesions. No evidence of osteomyelitis. IMPRESSION: Severe subcutaneous edema throughout the calf and ankle. No acute osseous findings. Degenerative ch anges in the ankle joint noted. DATA REPOSITORY: RADIATION DOSE DELIVERED:
[2023-03-23 09:43] LABS: Abs Immature Grans 0.05 10^3/uL (0.0-0.06); Absolute Basophil Count 0.04 10^3/uL (0.0-0.2); Absolute Eosinophil Count 0.18 10^3/uL (0.0-0.7); Absolute Monocyte Count 0.54 10^3/uL (0.1-0.8); Basophils % 0.6; Eosinophils % 2.6; HCT 39.1 % (40.0-50.0); HGB 12.7 g/dL (13.5-17.5); Immature Grans % 0.7; Lymphocytes % 26.4; MCH 30.3 pg (27.0-33.0); MCHC 32.5 % (32.0-36.0); MCV 93 fL (80-95); MPV 8.9 fL (8.0-11.0); Monocytes % 7.9; Neutrophils % 61.8; Platelet Count 253 10^3/uL (130-400); RBC 4.19 10^6/uL (4.36-5.78); RDW 13.5 % (11.8-14.1); RDW-SD 46.1 fL; WBC 6.81 10^3/uL (4.4-10.8)
[2023-03-23 09:44] LABS: Lactate 2.1 mmol/L (0.6-1.4)
[2023-03-23 09:59] LABS: Magnesium 2.2 mg/dL (1.8-2.4)
[2023-03-23 10:05] LABS: ALT 61 U/L (16-63); AST 17 U/L (15-37); Albumin 3.2 g/dL (3.4-5.0); Alkaline Phosphatase 67 U/L (46-116); Anion Gap 7.1 mmol/L (3-11); BUN 9 mg/dL (7-18); Bilirubin, Total 0.5 mg/dL (0.2-1.0); CO2 29.9 mmol/L (21.0-32.0); CREATININE 1.1 mg/dL (0.70-1.30); Chloride 105 mmol/L (98-107); Estimated GFR 75.43 (mL/min/1.73m2); Glucose 123 mg/dL (74-106); Potassium 3.7 mmol/L (3.5-5.1); Sodium 142 mmol/L (136-145); Total Protein 7.3 g/dL (6.4-8.2)
[2023-03-23 10:52] LABS: Procalcitonin < 0.1 ng/mL
[2023-03-23] MEDS: CEFEPIME 2 GM in Normal Saline 100 ML IVPB ×2 (11:03→18:13)
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
[2023-03-23] MEDS: hydrALAZINE 10 MG TAB 40 MG PO ×2 (13:06→19:51)
--- NOTE | 2023-03-23 14:28 | PHA.REVIEW2 ---
Pharmacy Admission Review Admission Clinical Review Admission Pharmacy Review: (Updated 03/23/23 @ 13:18 by Leonora Simmons NP) Morbid obesity (Acute) Discharge planning issues (Acute) DVT prophylaxis (Acute) Cellulitis of right lower leg (Acute) ciprofloxacin [From Cipro] Adverse Reaction (Severe, Unverified 03/23/23 12:20) Other (See Comment) environmental/pollen Adverse Reaction (Severe, Uncoded 03/23/23 12:20) rhinitis Resuscitation Status Full Code Height 5 ft 10 in Weight 152.124 kg Pharmacy Admission Review Renal Dosing Renal Dosing: BUN 9 mg/dL (7-18) 03/23/23 09:25 Creatinine 1.1 mg/dL (0.70-1.30) 03/23/23 09:25 Medications needing adjustments: Reviewed (CrCl 101.75 mL/min) Anticoagulation Anticoagulation: Hgb 12.7 g/dL (13.5-17.5) L 03/23/23 09:25 Hct 39.1 % (40.0-50.0) L 03/23/23 09:25 Plt Count 253 10^3/uL (130-400) 03/23/23 09:25 Creatinine 1.1 mg/dL (0.70-1.30) 03/23/23 09:25 DVT Prophylaxis: Reviewed Medications: Apixaban (5mg BID) Relevant Labs Relevant Labs: Sodium 142 mmol/L (136-145) 03/23/23 09:25 Potassium 3.7 mmol/L (3.5-5.1) 03/23/23 09:25 Chloride 105 mmol/L (98-107) 03/23/23 09:25 Magnesium 2.2 mg/dL (1.8-2.4) 03/23/23 09:25 C-Reactive Protein 1.60 mg/dL (0.0-0.3) H 03/23/23 09:25 Electrolytes, C-Reactive P, ESR: Reviewed Cardiac Review Cardiac Review: Blood Pressure 150/78 1314 Blood Pressure 170/81 1247 Blood Pressure 174/66 0931 Blood Pressure 174/66 0849 BP, HR, EF%: Reviewed (BP 150/78, HR WNL) QTc Review QTc: N/A (No EKG in patient profile) IV to PO Switch IV Medications: Reviewed Home Meds Home Med List reviewed: Intervened Relevent Home Meds Not ordered & why?: Updated home med list. Called nursing to confirm with patient what dose of doxazosin he takes at home (2mg vs 1mg). Active med list states 1mg but external data looks like patient picks up a prescription for 2mg tablet (last filled 02/05). Nursing spoke with patient who stated he takes 1mg at bedtime. Will leave as 1mg. Current Meds Current Medication Order Review: Reviewed Pharmacy Antibiotic Review Relevant Labs: Relevant Labs 03/23/23 09:25 C-Reactive Protein 1.60 H Procalcitonin < 0.1 Pharmacy Antibiotic Activity: C/S review and Reviewed, no change Comments: Current regimen cefepime 2g q8h day 1 for cellulitis on leg. No evidence of osteo per H+P. Was taking cephalexin at home but was not improving. WBC WNL and afebrile.
[2023-03-23] MEDS: Omnipaque 350 MG/ML 100 ML BTL IJ (16:20)
[2023-03-23] MEDS: Normal Saline - Diluent 50 ML VIAL IJ (16:21)
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
[2023-03-23] MEDS: Furosemide 20 MG TAB PO (16:53)
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
[2023-03-23] MEDS: Carvedilol 6.25 MG TAB PO (19:51)
[2023-03-23] MEDS: Apixaban 5 MG TAB PO (19:51)
[2023-03-23] MEDS: Doxazosin 1 MG TAB PO (22:13)
[2023-03-24] MEDS: CEFEPIME 2 GM in Normal Saline 100 ML IVPB ×3 (01:39→18:11)
[2023-03-24 06:53] LABS: Abs Immature Grans 0.04 10^3/uL (0.0-0.06); Absolute Basophil Count 0.04 10^3/uL (0.0-0.2); Absolute Eosinophil Count 0.17 10^3/uL (0.0-0.7); Absolute Lymphocyte Count 2.08 10^3/uL (1.2-3.4); Absolute Monocyte Count 0.68 10^3/uL (0.1-0.8); Basophils % 0.5; Eosinophils % 2.3; HCT 38.2 % (40.0-50.0); HGB 12.5 g/dL (13.5-17.5); Immature Grans % 0.5; Lymphocytes % 27.7; MCH 30.4 pg (27.0-33.0); MCHC 32.7 % (32.0-36.0); MCV 93 fL (80-95); MPV 8.9 fL (8.0-11.0); Monocytes % 9.1; Neutrophils % 59.9; Platelet Count 257 10^3/uL (130-400); RBC 4.11 10^6/uL (4.36-5.78); RDW 13.4 % (11.8-14.1); RDW-SD 45.7 fL; WBC 7.51 10^3/uL (4.4-10.8)
[2023-03-24 07:03] LABS: MRSA PCR Negative (Negative)
[2023-03-24 07:23] LABS: ALT 53 U/L (16-63); AST 18 U/L (15-37); Alkaline Phosphatase 60 U/L (46-116); Anion Gap 7.3 mmol/L (3-11); BUN 12 mg/dL (7-18); Bilirubin, Total 0.5 mg/dL (0.2-1.0); CO2 27.7 mmol/L (21.0-32.0); Calcium 8.8 mg/dL (8.5-10.1); Chloride 107 mmol/L (98-107); Estimated GFR 84.57 (mL/min/1.73m2); Glucose 117 mg/dL (74-106); Potassium 3.6 mmol/L (3.5-5.1); Sodium 142 mmol/L (136-145); Total Protein 6.8 g/dL (6.4-8.2)
[2023-03-24 08:00] VITALS: BP 163/80; PULSE 76; RESP 17; TEMP 36; O2SAT 92
[2023-03-24] MEDS: hydrALAZINE 10 MG TAB 40 MG PO ×3 (08:26→20:07)
[2023-03-24] MEDS: Furosemide 20 MG TAB PO ×2 (08:27→15:41)
[2023-03-24] MEDS: Apixaban 5 MG TAB PO ×2 (08:27→20:07)
[2023-03-24] MEDS: Lisinopril 20 MG TAB 40 MG PO (08:27)
[2023-03-24] MEDS: Acetaminophen 325 MG TAB 650 MG PO (08:27)
[2023-03-24] MEDS: Carvedilol 6.25 MG TAB PO ×2 (08:28→20:07)
[2023-03-24] MEDS: Cetirizine 10 MG TAB PO (08:28)
[2023-03-24 08:31] VITALS: BP 163/80; PULSE 76; RESP 17; TEMP 36.5; O2SAT 92
--- NOTE | 2023-03-24 09:57 | W.PM.PROGNOT ---
Date of Service Date of service: 03/24/23 Time of Service: 09:57 Assessment and Plan Assessment and plan (1) Cellulitis of right lower leg: Status: Acute Assessment and plan: admitted for inpatient IV therapy after failing outpatient, No evidence of osteo or abscess on CT imaging. continue cefepime, similar history with positive group B strep culture, current cultures pending elevate as much as possible during the day. continue diuresis and wraps, continue wound care per surgery recommendations. (2) Lymphedema: Status: Chronic Assessment and plan: PT consulted and will be placing lymphedema therapy (3) Hypertension: Status: Chronic Assessment and plan: Continue lasix for lymphedema Continue coreg, hydralazine and lisinopril. monitor blood pressure daily per protocol. adjust medication as needed. Qualifiers: Hypertension type: essential hypertension Qualified Code(s): I10 - Essential (primary) hypertension (4) Obstructive sleep apnea: Status: Chronic Assessment and plan: home cpap (5) Atrial fibrillation: Status: Chronic Assessment and plan: continue beta prem, fully anticoagulated. Qualifiers: Atrial fibrillation type: unspecified chronic Qualified Code(s): I48.20 - Chronic atrial fibrillation, unspecified (6) Morbid obesity: Status: Acute Assessment and plan: nutrition consult continue discussions about weight management with pcp (7) DVT prophylaxis: Status: Acute Assessment and plan: continue full dose eliquis (8) Discharge planning issues: Status: Acute Assessment and plan: anticipate discharge to home with no new services. Surgery will follow for wound care. discussed with DR Baker Subjective Subjective Patient reports: diarrhea and afebrile Exam Const General: cooperative, comfortable and no acute distress Nutritional Appearance: obese Orientation: alert, awake and oriented x3 HENMT Head: normal to inspection, normocephalic and atraumatic Mouth: moist mucous membranes abnormal Resp Effort & Inspection: normal respiratory effort Cardio Rate: regular rate Rhythm: regular rhythm GI Inspection: obesity Palpation: soft Auscultation: normal bowel sounds Skin Lesions: lesion noted (right lower extremity, dry flaky skin) Rashes: no rashes Neuro General: patient alert, patient awake and patient oriented x3 Extrem General: normal to inspection and edema (right much greater than left) Psych Appearance: grossly normal Mood: anxious mood Thought Process: normal Thought Content: normal Insight: fair Judgment: fair Objective Last Vital Signs Temp 36.5 C 03/24/23 08:31 Pulse 76 03/24/23 08:31 Resp 17 03/24/23 08:31 BP 163/80 H 03/24/23 08:31 Pulse Ox 92 03/24/23 08:31 Laboratory Results - last 24 hr 03/23/23 03/24/23 03/24/23 09:25 05:45 06:06 WBC 7.51 RBC 4.11 L Hgb 12.5 L Hct 38.2 L MCV 93 MCH 30.4 MCHC 32.7 RDW 13.4 Plt Count 257 MPV 8.9 Immature Gran % 0.5 Neutrophils % 59.9 Lymphocytes % 27.7 Monocytes % 9.1 Eosinophils % 2.3 Basophils % 0.5 Nucleated RBC % 0.0 Absolute Neutrophils 4.50 Absolute Lymphocytes 2.08 Absolute Monocytes 0.68 Absolute Eosinophils 0.17 Absolute Basophils 0.04 Sodium 142 142 Potassium 3.7 3.6 Chloride 105 107 Carbon Dioxide 29.9 27.7 Anion Gap 7.1 7.3 BUN 9 12 Creatinine 1.1 1.0 Est GFR (CKD-EPI 2020) 75.43 84.57 Glucose 123 H 117 H Calcium 9.0 8.8 Magnesium 2.2 Total Bilirubin 0.5 0.5 AST 17 18 ALT 61 53 Alkaline Phosphatase 67 60 C-Reactive Protein 1.60 H Total Protein 7.3 6.8 Albumin 3.2 L 3.0 L Procalcitonin < 0.1 MRSA (TEM-PCR) Negative PAWSS Have you Been Recently Intoxicated or Drunk Within the Last 30 days?: No Have you Ever Experienced Previous Episodes of Alcohol Withdrawal?: No Have you ever Experienced Withdrawal Seizures?: No Have you ever Experienced Delirium Tremens(DT)s?: No Have you ever undergone Alcohol Rehabilitation Treatment (i.e, inpt ot outpatient treatment programs)?: No Have you ever Experienced Blackouts?: No Have you ever Combined Alcohol with other Downers within the last 90 days?: No Have you ever Combined Alcohol with any other Substance of Abuse during the last 90 days?: No Result: 0 Time Spent with Patient Time Spent with Patient: 35-49 minutes Time was spent: preparing to see the patient(eg.review tests), obtaining and/or reviewing separately otained hiistory, ordering medications,tests, procedures, referring, communicating with other health patient care coordinator, indepentently interpreting results and counseling the patient
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
--- NOTE | 2023-03-24 14:15 | PGE_ITS ---
Date of Service Date of service: 03/24/23 Time of Service: 14:15 Assessment and Plan Assessment and plan (1) Cellulitis of right lower leg: Status: Acute Assessment and plan: --MRSA negative ---Cdiff negative --F/u final wound cultures; prelim GNR, G+ naz --continue wound care as detailed by Dr. Gonzalez --PT as tolerated --Nutritional support -Medical management of comorbidities --Currently no abscesses or signs of fasciitis (2) Venous stasis dermatitis of both lower extremities: Status: Acute (3) Morbid obesity: Status: Acute (4) Lymphedema: Status: Chronic Subjective Subjective Interval history since last seen: Pt reports decreased redness, and swelling over LE. Denies chest pain, SOB One soft bowel movement today. Liquid stools yesterday. Nursing about to apply recommended wound care Exam Const General: cooperative, healthy appearing, comfortable, no acute distress and well developed Nutritional Appearance: obese Orientation: alert, awake and oriented x3 Neck Neck: normal visual inspection Resp Effort & Inspection: normal respiratory effort and able to speak in complete sentences Auscultation: clear to auscultation bilaterally Cardio Rate: regular rate Rhythm: regular rhythm GI Inspection: obesity Palpation: soft, not firm, no guarding and nontender Auscultation: normal bowel sounds Extrem Other: cellulitis over bilateral lower extremities, R>L; erythema reportedly decreased from right thigh down to patellla level; dry crusted wound over right malleolus; no fluctuance appreciated; no weeping wounds Objective Last Vital Signs Temp 97.7 F 03/24/23 08:31 Pulse 76 03/24/23 08:31 Resp 17 03/24/23 08:31 BP 163/80 H 03/24/23 08:31 Pulse Ox 92 03/24/23 08:31 Laboratory Results - last 24 hr 03/24/23 03/24/23 05:45 06:06 WBC 7.51 RBC 4.11 L Hgb 12.5 L Hct 38.2 L MCV 93 MCH 30.4 MCHC 32.7 RDW 13.4 Plt Count 257 MPV 8.9 Immature Gran % 0.5 Neutrophils % 59.9 Lymphocytes % 27.7 Monocytes % 9.1 Eosinophils % 2.3 Basophils % 0.5 Nucleated RBC % 0.0 Absolute Neutrophils 4.50 Absolute Lymphocytes 2.08 Absolute Monocytes 0.68 Absolute Eosinophils 0.17 Absolute Basophils 0.04 Sodium 142 Potassium 3.6 Chloride 107 Carbon Dioxide 27.7 Anion Gap 7.3 BUN 12 Creatinine 1.0 Est GFR (CKD-EPI 2020) 84.57 Glucose 117 H Calcium 8.8 Total Bilirubin 0.5 AST 18 ALT 53 Alkaline Phosphatase 60 Total Protein 6.8 Albumin 3.0 L MRSA (TEM-PCR) Negative PAWSS Have you Been Recently Intoxicated or Drunk Within the Last 30 days?: No Have you Ever Experienced Previous Episodes of Alcohol Withdrawal?: No Have you ever Experienced Withdrawal Seizures?: No Have you ever Experienced Delirium Tremens(DT)s?: No Have you ever undergone Alcohol Rehabilitation Treatment (i.e, inpt ot outpatient treatment programs)?: No Have you ever Experienced Blackouts?: No Have you ever Combined Alcohol with other Downers within the last 90 days?: No Have you ever Combined Alcohol with any other Substance of Abuse during the last 90 days?: No Result: 0 Time Spent with Patient Time Spent with Patient: 25-34 minutes Time was spent: preparing to see the patient(eg.review tests), obtaining and/or reviewing separately otained hiistory, referring, communicating with other health laboratory animal caretaker, indepentently interpreting results and counseling the patient
--- NOTE | 2023-03-24 15:09 | CHAPLAIN ---
Marcin was resting in bed when I visited. He shared some personal history, telling me about growing up in [place] then living in [place], [place] and [place] before returning to [place]. He says he has a small, but strong little river of friends and was expecting a visitor this afternoon. I left when he received a phone call.
[2023-03-24 15:26] VITALS: BP 161/75; PULSE 54; RESP 18; TEMP 37.1; O2SAT 95
--- NOTE | 2023-03-24 15:50 | PT.INTREAT ---
PT Notes Visit Reasons: Right Lower Leg Cellulitis Physical Therapy Inpatient Treatment Note Date: 03/24/2023 Precautions: Fall. Standard. Activity as tolerated. Subjective: Agreeable to today's wrapping. Objective: General Observation: Seated on edge of bed. Erythema and swelling to R thigh, R leg and foot diminishing. Less swelling seen in L leg and foot. Open areas noted in B legs. Circumferential overpressure mckeon seen on area just distal to the knees on B sides from prior maybe worn out compression garments/unna boot use Mental Status: Alert and oriented as to person, place, time, and purpose. Able to pay attention, focus, and respond appropriately. Pain: As above Vital Signs: Closely monitored by nursing staff Bed Mobility/Transfers: Rolling independent Supine to sit independent Sit to supine independent Sit to stand independent Stand to sit independent Bed to reclining chair independent Reclining chair to bed independent Gait: Independent room ambulator without an assistive device. Reports pain of up to 4-5/10 in B lesgs R more than L that is worse with weight bearing. 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 Will benefit from complete decongestive therapy at an outpatient basis. Use of intermittent pneumatic compression pump and wrap-around thigh-high compression garments needed for phase II of CDT. Plan of Care/Treatment Plan: 1-2x/day, 7 days/week x 1 week. Plan of care has been reviewed with the VP SOFTWARE ENGINEERING providing the service under Physical Therapy direction. Multi-layer bandaging to B legs and feet while ensuring that risk for falls is not increased. DISCHARGE RECOMMENDATIONS: []Home with no services [] Home with services [specify] [X] Home with outpatient PT. Resume complete decongestive therapy to address lymphedema symptoms. Prescription for wrap-around compression garments will be needed as well as for intermittent pneumatic compression pump. [] SNF for continued rehabilitation [] [] [facility] [] [] SNF versus LTC based on ability to participate and progress [] TREATMENT CODE/TIME: 14852 x 80 minutes for 5 units beginning at 15:50 PM.
[2023-03-24 15:57] LABS: C Diff PCR Negative (Negative)
--- NOTE | 2023-03-24 16:11 | NUR.NOTE ---
Nursing Note: This administrative underwriter was in patient's room @ 12:50 attempting to dress BLE where cellulitis is; Dr. Bell, general surgeon walked in and was assessing patient. Patient told Dr. Bell, I didn't take my lasix this morning This nurse had watched patient take all pills this morning and swallow them. Pt stated I put them all in my mouth and then swallowed a but the lasix and then spit it in the trash This was new news to this administrative underwriter at this time. The patient was educated on the importance of letting the nurse know and had he refused it, I wouldn't have given it to him as it is his right to refuse treatement. Lasix has since been charted against as not taken because patient refused.
[2023-03-24 19:45] VITALS: BP 162/77; PULSE 61; RESP 20; TEMP 36.8; O2SAT 96
[2023-03-24] MEDS: Doxazosin 1 MG TAB PO (21:44)
[2023-03-24 23:26] VITALS: BP 153/70; PULSE 73; RESP 20; TEMP 37.2; O2SAT 94
[2023-03-25] MEDS: CEFEPIME 2 GM in Normal Saline 100 ML IVPB ×3 (01:24→19:04)
[2023-03-25 08:59] VITALS: BP 137/76; PULSE 61; RESP 17; TEMP 36.3; O2SAT 96
[2023-03-25] MEDS: Cetirizine 10 MG TAB PO (09:02)
[2023-03-25] MEDS: hydrALAZINE 10 MG TAB 40 MG PO ×3 (09:02→19:53)
[2023-03-25] MEDS: Apixaban 5 MG TAB PO ×2 (09:02→19:55)
[2023-03-25] MEDS: Carvedilol 6.25 MG TAB PO ×2 (09:02→19:53)
[2023-03-25] MEDS: Lisinopril 20 MG TAB 40 MG PO (09:02)
[2023-03-25] MEDS: Furosemide 20 MG TAB PO ×2 (09:02→16:26)
[2023-03-25] MEDS: Silver sulfaDIAZINE 1% 25 GM TUBE TP (09:03)
--- NOTE | 2023-03-25 09:54 | W.PM.PROGNOT ---
Date of Service Date of service: 03/25/23 Time of Service: 09:55 Assessment and Plan Assessment and plan (1) Cellulitis of right lower leg: Status: Acute Assessment and plan: Pt appears to be improving with decreased erythema noted around dresssings --will re-evaluate when dressings taken down later today, nursing contacted --local wound care --abx per primary service --wound culture: serratia marcesans (2) Venous stasis of both lower extremities: Status: Acute Assessment and plan: --rec maintaining compressive dressing --likely need to resume home health for outpatient services (3) Morbid obesity: Status: Acute Subjective Subjective Interval history since last seen: Pt complains of some irritation with compressive dressings in place, but no systemic symptoms. Denies chest pain, shortness of breath, abdominal pain, nausea/vomiting. Tolerating a diet. Ambulating independently. Exam Const General: cooperative, healthy appearing, comfortable and no acute distress Nutritional Appearance: obese Orientation: alert, awake and oriented x3 Neck Neck: normal visual inspection Resp Effort & Inspection: normal respiratory effort and able to speak in complete sentences Auscultation: clear to auscultation bilaterally Cardio Rate: regular rate Rhythm: regular rhythm Heart Sounds: S1 normal and S2 normal GI Inspection: obesity Palpation: soft, no guarding, not rigid and nontender Extrem Other: Compressive dressings in place to LE b/l; decreased erythema over thighs R leg>L in size toes warm bilaterally, blanching erythema Psych Appearance: grossly normal Mental Status: mental status grossly normal Speech and Movement: speech and movement normal Mood: congruent mood Affect: normal affect Objective Last Vital Signs Temp 97.3 F L 03/25/23 08:59 Pulse 61 03/25/23 08:59 Resp 17 03/25/23 08:59 BP 137/76 03/25/23 08:59 Pulse Ox 96 03/25/23 08:59 Laboratory Results - last 24 hr 03/24/23 13:52 Stl C.difficile Tox PCR Negative PAWSS Have you Been Recently Intoxicated or Drunk Within the Last 30 days?: No Have you Ever Experienced Previous Episodes of Alcohol Withdrawal?: No Have you ever Experienced Withdrawal Seizures?: No Have you ever Experienced Delirium Tremens(DT)s?: No Have you ever undergone Alcohol Rehabilitation Treatment (i.e, inpt ot outpatient treatment programs)?: No Have you ever Experienced Blackouts?: No Have you ever Combined Alcohol with other Downers within the last 90 days?: No Have you ever Combined Alcohol with any other Substance of Abuse during the last 90 days?: No Result: 0 Time Spent with Patient Time Spent with Patient: <25 minutes Time was spent: preparing to see the patient(eg.review tests), referring, communicating with other health critical care physician, indepentently interpreting results and care coordination
--- NOTE | 2023-03-25 10:19 | CMPROGNOTE_ITS ---
Date of service: 03/25/23 Time of Service: 10:20 Care Management Progress Note Progress Note Text Progress Note Text: S/O: Marcin remains inpatient, CM continues to follow. A: 62 year old admitted to [facility] 03/23/23 for right lower leg cellulitis P: Awaiting culture and sensitivities, anticipate Marcin will return home with outpatient wound care follow up. He will follow up with his PCP and plan of care as prescribed. CM continues to follow. Per PT: Home with outpatient PT. Resume complete decongestive therapy to address lymphedema symptoms. Prescription for wrap-around compression garments will be needed as well as for intermittent pneumatic compression pump.
--- NOTE | 2023-03-25 10:48 | PGE_ITS ---
Date of Service Date of service: 03/25/23 Time of Service: 10:48 Assessment and Plan Assessment and plan (1) Cellulitis of right lower leg: Status: Acute Assessment and plan: No evidence of osteo or abscess on CT imaging on admission. Will continue cefepime: Seratia and Enterococcus found in wound culture. Has a history of positive group B strep culture; Awaiting further results Continue to elevate as much as possible during the day. Continue Furosemide for diuresis and wraps as per PT Continue wound care per surgery recommendations. Will change dressing every othe r day. CBC Today and in AM, no leukocytosis (2) Lymphedema: Status: Chronic Assessment and plan: As per PT consultation:continue lymphedema therapy (3) Hypertension: Status: Chronic Assessment and plan: Continue home carvedilol, hydralazine and lisinopril. On Furosemide for lymphedema monitor blood pressure daily per protocol. adjust medication as needed BMP today and in AM. Qualifiers: Hypertension type: essential hypertension Qualified Code(s): I10 - Essential (primary) hypertension (4) Obstructive sleep apnea: Status: Chronic Assessment and plan: Continue home CPAP (5) Atrial fibrillation: Status: Chronic Assessment and plan: continue carvedilol fully anticoagulated and will continue Eliquis . Qualifiers: Atrial fibrillation type: unspecified chronic Qualified Code(s): I48.20 - Chronic atrial fibrillation, unspecified (6) Morbid obesity: Status: Acute Assessment and plan: Nutrition consult ordered.Patient might refuse but will encourage to reconsider consultation Continue discussions about weight management with pcp (7) DVT prophylaxis: Status: Acute Assessment and plan: On Eliquis for atrial fibrillation, no adjustment needed t (8) Discharge planning issues: Status: Acute Assessment and plan: anticipate discharge to home on oral antibitics with home health. Surgery will follow for wound care. Discussed with DR Baker (9) Pain: Status: Acute Assessment and plan: Scheduled Acetaminophen Gabapentin 100 mg TID, LFT's Evaluate need for increment in pain meds regimen with dressing change Subjective Subjective Interval history since last seen: Patient reports sleeping well, feeling better, eating and drinking well, having bowel movements and voiding without difficulty. Patient denies fever,chills, night sweats, pruritus, shortness shortness of breath cough, chest pain, nausea or other gastrointestinal complaints, or dysuria. Patient reports pain 6 out of 10, feeling like burning to his lower extremities. Also mentioned that he had been on gabapentin in the past for this type of pain, but did not follow-up with [place] to get a refill. Patient agrees that he will need home health on discharge. Exam Narrative Exam Narrative: Constitutional The patient in bed without acute distress The patient has obese body habitus HENMT: Head is atraumatic, normocephalic, facial structures with normal appearance Eyes: Well aligned Neck: Normal ROM, no meningeal signs Neuro:alert and oriented x 4, No neurological focal deficit Chest:Chest is symmetrical and normal appearance Resp: Normal respiratory pattern, speaks in full sentences, unlabored breathing, clear lung bilaterally Cardio: regular rhythm, S1, S2, no murmur, capillary refill<3 sec. positive pulses palpated to all 4 extremities . GI: Abdomen is large with midline old-healed surgical scar, not distended, soft and non tender, bowel sounds are present : Negative Costovertebral angle tenderness Back/spine/Pelvis: No back tenderness, normal alignment Integumentary: Right lower extremity noticed to have edema, multiple wounds, 1 weeping blister, redness that is receding when compared to yesterday.Left lower extremity noticed to have less edema and erythema, minimal skin breakdown without noticeable drainage Extremities: strength 5/5 to bilateral lower and upper extremities Psych: RASS 0, labile mood and normal to elated affect. Objective Last Vital Signs Temp 36.3 C L 03/25/23 08:59 Pulse 61 03/25/23 08:59 Resp 17 03/25/23 08:59 BP 137/76 03/25/23 08:59 Pulse Ox 96 03/25/23 08:59 Laboratory Results - last 24 hr 03/24/23 13:52 Stl C.difficile Tox PCR Negative PAWSS Have you Been Recently Intoxicated or Drunk Within the Last 30 days?: No Have you Ever Experienced Previous Episodes of Alcohol Withdrawal?: No Have you ever Experienced Withdrawal Seizures?: No Have you ever Experienced Delirium Tremens(DT)s?: No Have you ever undergone Alcohol Rehabilitation Treatment (i.e, inpt ot outpatient treatment programs)?: No Have you ever Experienced Blackouts?: No Have you ever Combined Alcohol with other Downers within the last 90 days?: No Have you ever Combined Alcohol with any other Substance of Abuse during the last 90 days?: No Result: 0 Time Spent with Patient Time Spent with Patient: >50 minutes Time was spent: preparing to see the patient(eg.review tests), ordering medications,tests, procedures, referring, communicating with other health director of critical care, indepentently interpreting results, counseling the patient and care coordination
[2023-03-25] MEDS: MORPHine 2 MG/ML SYR 1 MG IVP (14:36)
[2023-03-25] MEDS: Acetaminophen 325 MG TAB 650 MG PO ×2 (14:37→19:54)
[2023-03-25] MEDS: Gabapentin 100 MG CAP PO ×2 (14:37→19:55)
[2023-03-25 14:47] LABS: Abs Immature Grans 0.06 10^3/uL (0.0-0.06); Absolute Basophil Count 0.05 10^3/uL (0.0-0.2); Absolute Eosinophil Count 0.28 10^3/uL (0.0-0.7); Absolute Lymphocyte Count 2.19 10^3/uL (1.2-3.4); Absolute Monocyte Count 0.68 10^3/uL (0.1-0.8); Absolute Neutrophil Count 5.51 10^3/uL (1.2-6.7); Basophils % 0.6; Eosinophils % 3.2; HGB 13.3 g/dL (13.5-17.5); Immature Grans % 0.7; MCH 30.3 pg (27.0-33.0); MCHC 32.4 % (32.0-36.0); MCV 93 fL (80-95); MPV 8.8 fL (8.0-11.0); Monocytes % 7.8; Neutrophils % 62.7; Platelet Count 259 10^3/uL (130-400); RBC 4.39 10^6/uL (4.36-5.78); RDW 13.4 % (11.8-14.1); RDW-SD 46.3 fL; WBC 8.77 10^3/uL (4.4-10.8)
[2023-03-25 15:00] LABS: Anion Gap 8.6 mmol/L (3-11); BUN 14 mg/dL (7-18); CO2 24.4 mmol/L (21.0-32.0); CREATININE 1.3 mg/dL (0.70-1.30); Calcium 8.9 mg/dL (8.5-10.1); Chloride 106 mmol/L (98-107); Estimated GFR 61.73 (mL/min/1.73m2); Glucose 108 mg/dL (74-106); Potassium 3.7 mmol/L (3.5-5.1); Sodium 139 mmol/L (136-145)
[2023-03-25 15:39] VITALS: BP 168/79; PULSE 56; RESP 18; TEMP 36.6; O2SAT 96
--- NOTE | 2023-03-25 16:33 | PTTR_ITS ---
PT Notes Visit Reasons: Right Lower Leg Cellulitis Physical Therapy Inpatient Treatment Note Date: 03/25/2023 Precautions: Fall. Standard. Activity as tolerated. Subjective: Agreeable to today's wrapping. Complained earlier of increased stinging in B legs, R more than L. Objective: General Observation: Seated on edge of bed. Erythema and swelling to R thigh, R leg and foot diminishing. Less swelling seen in L leg and foot. Open areas noted in B legs. Circumferential overpressure mckeon seen on area just distal to the knees on B sides from prior maybe worn out compression garments/unna boot use Mental Status: Alert and oriented as to person, place, time, and purpose. Able to pay attention, focus, and respond appropriately. Pain: As above Vital Signs: Closely monitored by nursing staff Bed Mobility/Transfers: Rolling independent Supine to sit independent Sit to supine independent Sit to stand independent Stand to sit independent Bed to reclining chair independent Reclining chair to bed independent Gait: Independent room ambulator without an assistive device. Reports pain of up to 4-5/10 in B legs R more than L that is worse with weight bearing. 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 Will benefit from complete decongestive therapy at an outpatient basis. Use of intermittent pneumatic compression pump and wrap-around thigh-high compression garments needed for phase II of CDT. Plan of Care/Treatment Plan: 1-2x/day, 7 days/week x 1 week. Plan of care has been reviewed with the DULITE MACHINE BLUER providing the service under Physical Therapy direction. Multi-layer bandaging to B legs and feet while ensuring that risk for falls is not increased. DISCHARGE RECOMMENDATIONS: []Home with no services [] Home with services [specify] [X] Home with outpatient PT. Resume complete decongestive therapy to address lymphedema symptoms. Prescription for wrap-around compression garments will be needed as well as for intermittent pneumatic compression pump. [] SNF for continued rehabilitation [] [] [facility] [] [] SNF versus LTC based on ability to participate and progress [] TREATMENT CODE/TIME: [id number] x 30 minutes for 2 units beginning at 15:50 PM.
[2023-03-25 16:39] LABS: Lab Add On Test DONE
[2023-03-25 16:52] LABS: ALT 52 U/L (16-63); AST 16 U/L (15-37); Alkaline Phosphatase 61 U/L (46-116); Bilirubin, Direct 0.1 mg/dL (0.0-0.2); Bilirubin, Total 0.4 mg/dL (0.2-1.0); Total Protein 6.8 g/dL (6.4-8.2)
[2023-03-25] MEDS: Doxazosin 1 MG TAB PO (19:55)
[2023-03-25 23:27] VITALS: BP 145/72; PULSE 69; RESP 18; TEMP 37; O2SAT 96
[2023-03-26] MEDS: CEFEPIME 2 GM in Normal Saline 100 ML IVPB ×2 (03:27→11:03)
[2023-03-26] MEDS: Furosemide 20 MG TAB PO ×2 (07:11→13:21)
[2023-03-26 07:25] LABS: Abs Immature Grans 0.05 10^3/uL (0.0-0.06); Absolute Basophil Count 0.04 10^3/uL (0.0-0.2); Absolute Eosinophil Count 0.22 10^3/uL (0.0-0.7); Absolute Lymphocyte Count 2.02 10^3/uL (1.2-3.4); Absolute Neutrophil Count 3.93 10^3/uL (1.2-6.7); Basophils % 0.6; Eosinophils % 3.3; HCT 39.7 % (40.0-50.0); HGB 12.8 g/dL (13.5-17.5); Immature Grans % 0.7; Lymphocytes % 29.9; MCH 29.9 pg (27.0-33.0); MCHC 32.2 % (32.0-36.0); MCV 93 fL (80-95); Monocytes % 7.4; Neutrophils % 58.1; RBC 4.28 10^6/uL (4.36-5.78); RDW 13.3 % (11.8-14.1); RDW-SD 45.3 fL; WBC 6.76 10^3/uL (4.4-10.8)
[2023-03-26 07:30] LABS: Anion Gap 9.9 mmol/L (3-11); BUN 15 mg/dL (7-18); CO2 27.1 mmol/L (21.0-32.0); CREATININE 1.1 mg/dL (0.70-1.30); Calcium 8.9 mg/dL (8.5-10.1); Chloride 107 mmol/L (98-107); Estimated GFR 75.43 (mL/min/1.73m2); Glucose 105 mg/dL (74-106); Potassium 4.1 mmol/L (3.5-5.1); Sodium 144 mmol/L (136-145)
[2023-03-26 07:50] LABS: Diff Comment Diff Reviewed; RBC Morphology Normal
[2023-03-26] MEDS: Cetirizine 10 MG TAB PO (08:15)
[2023-03-26] MEDS: Carvedilol 6.25 MG TAB PO (08:16)
[2023-03-26] MEDS: Lisinopril 20 MG TAB 40 MG PO (08:16)
[2023-03-26] MEDS: Acetaminophen 325 MG TAB 650 MG PO ×2 (08:16→13:21)
[2023-03-26] MEDS: Apixaban 5 MG TAB PO (08:16)
[2023-03-26] MEDS: Gabapentin 100 MG CAP PO ×2 (08:17→13:21)
[2023-03-26] MEDS: hydrALAZINE 10 MG TAB 40 MG PO ×2 (08:17→13:21)
[2023-03-26] MEDS: Silver sulfaDIAZINE 1% 25 GM TUBE TP (08:38)
[2023-03-26 09:27] VITALS: BP 122/63; PULSE 68; RESP 16; TEMP 36.7; O2SAT 96
--- NOTE | 2023-03-26 11:12 | W.NUTRFU ---
Date of service: 03/26/23 Time of Service: 12:02 Nutrition Note NOTE: received pt consult request regarding: morbid obesity Pt is 62yo male with R lower leg cellulitis. PMH for diverticulosis, HTN, Afib. Current BMI of 48.1 is consistent with stage III obesity. Hgb A1c was done 10/15/21 and was 5.7% - consistent with prediabetes dx. Pt states he was never told his A1C was this value and has no diabetes in his family hx. Noted to have 10.3kg wt loss over the last 4 months - pt states this was not intentional but a result of being more active over the summer. Hx of B12 deficiency in 2019. Currently ordered for regular diet with normal consistencies. tolerating diet well. REcommendations: B12 lab and current A1C Pt took my card and will consider outpt appt for wt mgt and also diabetes education is his A1C is still an issue whether it is checked here or with PCP after discharge. Time Spent in Nutritional Counseling and Treatment: 30 min
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
[2023-03-26] MEDS: levoFLOXacin 500 MG, levoFLOXacin 250 MG 750 MG PO (12:00)
--- NOTE | 2023-03-26 13:10 | PTTR_ITS ---
PT Notes Visit Reasons: Right Lower Leg Cellulitis Physical Therapy Inpatient Treatment Note Date: 03/26/2023 Precautions: Fall. Standard. Activity as tolerated. Subjective: Stinging sensation lesser today than yesterday. Agreeable to today's wrapping. Objective: General Observation: Seated at edge of bed. Swelling to R thigh, R leg and foot diminishing. Erythema to R thigh and proximal leg resolved. Less swelling seen in L leg and foot. Open areas noted in B legs. Circumferential overpressure mckeon seen on area just distal to the knees on B sides from prior maybe worn out compression garments/unna boot use now almost resolved. Mental Status: Alert and oriented as to person, place, time, and purpose. Able to pay attention, focus, and respond appropriately. Pain: As above Vital Signs: Closely monitored by nursing staff Bed Mobility/Transfers: Rolling independent Supine to sit independent Sit to supine independent Sit to stand independent Stand to sit independent Bed to reclining chair independent Reclining chair to bed independent Gait: Independent room ambulator without an assistive device. Reports pain of up to 4-5/10 in B legs R more than L that is worse with weight bearing. 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 Will benefit from complete decongestive therapy at an outpatient basis. Use of intermittent pneumatic compression pump and wrap-around thigh-high compression garments needed for phase II of CDT. Plan of Care/Treatment Plan: 1-2x/day, 7 days/week x 1 week. Plan of care has been reviewed with the CRAYON MOLDING MACHINE OPERATOR providing the service under Physical Therapy direction. Multi-layer bandaging to B legs and feet while ensuring that risk for falls is not increased. LYMPHEDEMA MANAGEMENT PROVIDED TODAY: Positioned patient comfortably at edge of seat using foot stool to optimize wrapping of each leg/foot. Performed and recorded serial measurement to B LE. Coordinated session with Nurse Cook for wound redressing and then lymphedema rewrapping today. Re-rolled lymphedema wraps while Nurse Cook worked on redressing B legs. DISCHARGE RECOMMENDATIONS: []Home with no services [] Home with services [specify] [X] Home with outpatient PT. Resume complete decongestive therapy to address lymphedema symptoms. Prescription for wrap-around compression garments will be needed as well as for intermittent pneumatic compression pump. [] SNF for continued rehabilitation [] [] [facility] Administrator [facility] [] [] SNF versus LTC based on ability to participate and progress [] TREATMENT CODE/TIME: 745401 x 98 minutes for 7 units beginning at 13:10 PM.
--- NOTE | 2023-03-26 14:12 | PDOC.CMDIS ---
Care Management Discharge Plan Reason for Hospitalization: Right lower leg cellulitis Discharge Plan: Referrals initiated for [facility] (Gas card, service attachment), [facility] for MOW, Transport support and anticipate brief increased needs in the community related to foot wounds. He will have new orders for wound care and PT through home health, anticipated to transfer to outpatient when available. He will transport via private vehicle with his friend, Kellee. Patient/Family Education Needs: Review discharge instructions, discuss Ask Me Three. Services Needed at Discharge: Home Delivered Meals, Home Health Care Services, Outpatient Therapy and Transportation SDOH Health Related Social Needs: Health related social needs transpo insecurity Health related social needs: transportation insecurity(Z59.82) Referrals and interventions: [facility], [facility]
[2023-03-26 15:16] VITALS: BP 124/63; PULSE 64; RESP 19; TEMP 36.9; O2SAT 95
--- NOTE | 2023-03-26 15:24 | PGE_ITS ---
Date of Service Date of service: 03/26/23 Time of Service: 15:24 Assessment and Plan Assessment and plan (1) Cellulitis of right lower leg: Status: Acute Assessment and plan: Pt appears to be improving with decreased erythema noted around dresssings --local wound care with compresssive dressings--outpt f/u to be establishe --abx per primary service --wound culture: serratia marcesans (2) Venous stasis of both lower extremities: Status: Acute Assessment and plan: --rec maintaining compressive dressing (3) Morbid obesity: Status: Acute Assessment and plan: --optimize nutrition to aid in wound healing Subjective Subjective Interval history since last seen: Pt preparing to be discharged. His dressing were done before I could see his legs today, but he feels that there are improved. He does have some itchiness below the bandages that he is trying to avoid irritating. Exam Const General: cooperative, healthy appearing, comfortable and no acute distress Nutritional Appearance: obese Orientation: alert, awake and oriented x3 Neck Neck: normal visual inspection Resp Effort & Inspection: normal respiratory effort and able to speak in complete sentences Auscultation: clear to auscultation bilaterally Cardio Rate: regular rate Rhythm: regular rhythm Heart Sounds: S1 normal and S2 normal GI Inspection: obesity Palpation: soft, no guarding, not rigid and nontender Extrem Other: Compressive dressings in place to LE b/l; decreased erythema over thighs R leg>L in size Psych Appearance: grossly normal Mental Status: mental status grossly normal Speech and Movement: speech and movement normal Mood: congruent mood Affect: normal affect Objective Last Vital Signs Temp 98.4 F 03/26/23 15:16 Pulse 64 03/26/23 15:16 Resp 19 03/26/23 15:16 BP 124/63 03/26/23 15:16 Pulse Ox 95 03/26/23 15:16 Laboratory Results - last 24 hr 03/24/23 03/25/23 03/26/23 06:06 Unknown 06:03 WBC 6.76 RBC 4.28 L Hgb 12.8 L Hct 39.7 L MCV 93 MCH 29.9 MCHC 32.2 RDW 13.3 Plt Count MPV Immature Gran % 0.7 Neutrophils % 58.1 Lymphocytes % 29.9 Monocytes % 7.4 Eosinophils % 3.3 Basophils % 0.6 Nucleated RBC % 0.0 Absolute Neutrophils 3.93 Absolute Lymphocytes 2.02 Absolute Monocytes 0.50 Absolute Eosinophils 0.22 Absolute Basophils 0.04 RBC Morphology Normal Sodium 144 Potassium 4.1 Chloride 107 Carbon Dioxide 27.1 Anion Gap 9.9 BUN 15 Creatinine 1.1 Est GFR (CKD-EPI 2020) 75.43 Glucose 105 Calcium 8.9 Total Bilirubin 0.4 Conjugated Bilirubin 0.1 AST 16 ALT 52 Alkaline Phosphatase 61 Total Protein 6.8 Albumin 3.0 L Add-On Test Request DONE PAWSS Have you Been Recently Intoxicated or Drunk Within the Last 30 days?: No Have you Ever Experienced Previous Episodes of Alcohol Withdrawal?: No Have you ever Experienced Withdrawal Seizures?: No Have you ever Experienced Delirium Tremens(DT)s?: No Have you ever undergone Alcohol Rehabilitation Treatment (i.e, inpt ot outpatient treatment programs)?: No Have you ever Experienced Blackouts?: No Have you ever Combined Alcohol with other Downers within the last 90 days?: No Have you ever Combined Alcohol with any other Substance of Abuse during the last 90 days?: No Result: 0 Time Spent with Patient Time Spent with Patient: <25 minutes Time was spent: preparing to see the patient(eg.review tests), obtaining and/or reviewing separately otained hiistory, referring, communicating with other health child care education coordinator, indepentently interpreting results and counseling the patient
--- NOTE | 2023-03-26 17:03 | PDOC.HHF2F ---
Home Health Referral Home Health Orders Clinical synopsis of why skilled professionals are needed: Lower extremity cellulitis and bilateral lymphemdema with dressing change twice a week & ROCAEL boots Medical diagnosis necessitation home health referral: Lower extremity cellulitis and bilateral lymphemdema with dressing change twice a week & ROCAEL boots -wash b/l LE w/ Anasept wound cleanser . -Apply Silvadene to wounds -Apply nonstick dressing such as Telfa or Kerlix to open weeping wounds -Wrap with short stretch bandages versus Horacio wrap's -Change Twice a week ROCAEL Boots twice a week on the day of the dressing change Home Bound Status Requires the aid of supportive device (check all that apply): Other (Lymphedema and wounds to legs) Describe why leaving home would require a considerable and taxing effort: Other (Can move to [place], not long walks) Encounter Date and Reason: I certify that a FTF encounter for this patient was performed on March 26, 2023 and that such encounter was related to the primary reason the patient requires home health services. The encounter was conducted in the following manner: By me as the certifying physician, HEAVY EQUIPMENT SUPERVISOR, PA or By an inpatient physician, HEAVY EQUIPMENT SUPERVISOR or PA during an inpatient stay who communicated findings to me, Certification And Authentication I certify that I composed the above information based on my clinical judgment relating to this patient's medical condition and, if applicable, clinical findings communicated to me by the NPP or inpatient physician who performed the FTF encounter. Name of Provider that will be monitoring home health services: Jeovany Logan
== END 2023-03-26 17:42 | disposition home health service (06) | DRG 603 ==
LOC: ER 11:52 → MS 12:29
PROVIDERS: Nurse Practitioner Acute Care; Surgery; Admitting Provider Internal Medicine; Emergency Provider Physician Assistant; PCP Family Medicine; Visit Provider Internal Medicine
DX: L03.115 Cellulitis of right lower limb (principal); Z68.42 Body mass index [BMI] 45.0-49.9, adult; I48.20 Chronic atrial fibrillation, unspecified; L97.318 Non-pressure chronic ulcer of right ankle with other specified severity; E66.01 Morbid (severe) obesity due to excess calories; I10 Essential (primary) hypertension; G47.33 Obstructive sleep apnea (adult) (pediatric); I87.2 Venous insufficiency (chronic) (peripheral); I89.0 Lymphedema, not elsewhere classified; Z85.038 Personal history of other malignant neoplasm of large intestine; J34.2 Deviated nasal septum; R19.7 Diarrhea, unspecified; B96.20 Unspecified Escherichia coli [E. coli] as the cause of diseases classified elsewhere; B95.7 Other staphylococcus as the cause of diseases classified elsewhere
CPT/HCPCS: 00123; 36415; 80048; 80053; 80076; 84145; 87040; 87077; 87493; 87641; 97140; 97162; 99285; 73590; 73610; 73701; 83605; 83735; 85025; 86140; 87070; 87186; 87205; 99223; 99233; 99239; J0692; J2270; J3490

== ENCOUNTER 2023-04-28 03:55 | Outpatient (CLI) | payer MEDICAID, SELFPAY ==
[2023-04-28 13:12] LABS: ALT 32 U/L (16-63); AST 17 U/L (15-37); Albumin 3.5 g/dL (3.4-5.0); Alkaline Phosphatase 61 U/L (46-116); Anion Gap 8.9 mmol/L (3-11); BUN 18 mg/dL (7-18); Bilirubin, Total 0.6 mg/dL (0.2-1.0); CO2 29.1 mmol/L (21.0-32.0); Chloride 108 mmol/L (98-107); Estimated GFR 84.57 (mL/min/1.73m2); Glucose 104 mg/dL (74-106); Potassium 3.6 mmol/L (3.5-5.1); Sodium 146 mmol/L (136-145); Total Protein 7.3 g/dL (6.4-8.2)
== END 2023-04-28 03:56 | disposition home or self-care (01) ==
PROVIDERS: PCP Family Medicine; Visit Provider Student in an Organized Health Care Education/Training Program
DX: R74.01 Elevation of levels of liver transaminase levels (principal)
CPT/HCPCS: 36415; 80053

== ENCOUNTER 2023-09-27 11:58 | Emergency (ER) | payer MEDICAID, SELFPAY ==
[2023-09-27 12:13] VITALS: BP 201/78; PULSE 85; RESP 16; TEMP 36.9; O2SAT 97
[2023-09-27 13:17] VITALS: BP 201/78; PULSE 85; RESP 16; TEMP 36.9; O2SAT 97
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
[2023-09-27 16:17] LABS: Abs Immature Grans 0.04 10^3/uL (0.0-0.06); Absolute Basophil Count 0.06 10^3/uL (0.0-0.2); Absolute Eosinophil Count 0.25 10^3/uL (0.0-0.7); Absolute Lymphocyte Count 2.26 10^3/uL (1.2-3.4); Absolute Monocyte Count 0.84 10^3/uL (0.1-0.8); Absolute Neutrophil Count 5.11 10^3/uL (1.2-6.7); Basophils % 0.7 %; Eosinophils % 2.9 %; HCT 41.6 % (40.0-50.0); HGB 13.5 g/dL (13.5-17.5); Immature Grans % 0.5 %; Lymphocytes % 26.4 %; MCH 30.5 pg (27.0-33.0); MCHC 32.5 % (32.0-36.0); MCV 94 fL (80-95); MPV 8.7 fL (8.0-11.0); Monocytes % 9.8 %; Neutrophils % 59.7 %; Platelet Count 199 10^3/uL (130-400); RBC 4.42 10^6/uL (4.36-5.78); RDW 13.6 % (11.8-14.1); WBC 8.56 10^3/uL (4.4-10.8)
[2023-09-27 16:31] LABS: ALT 32 U/L (16-63); AST 21 U/L (15-37); Albumin 3.6 g/dL (3.4-5.0); Alkaline Phosphatase 74 U/L (46-116); Anion Gap 6.6 mmol/L (3-11); BUN 12 mg/dL (7-18); Bilirubin, Total 0.61 mg/dL (0.2-1.0); CO2 31.4 mmol/L (21.0-32.0); Calcium 8.8 mg/dL (8.5-10.1); Chloride 105 mmol/L (98-107); Estimated GFR 84.57 (mL/min/1.73m2); Glucose 90 mg/dL (74-106); Potassium 3.9 mmol/L (3.5-5.1); Sodium 143 mmol/L (136-145); Total Protein 7.4 g/dL (6.4-8.2)
[2023-09-27] MEDS: Ketorolac 15 MG/ML VIAL IVP (17:32)
[2023-09-27] MEDS: Ampicillin 500 MG CAP PO (17:32)
[2023-09-27] MEDS: Sulfameth/Trimeth DS TAB 1 TAB PO (17:32)
--- NOTE | 2023-09-27 17:50 | NUR.NOTE ---
Nursing Note: this sba underwriter with assist of feed mill lab technician rewrapped bilat lower legs with zinc elias boot and coban. Pt stated legs felt better once wrapped.
[2023-09-27 18:06] VITALS: BP 209/83; PULSE 65; RESP 18; TEMP 36.9; O2SAT 94
[2023-09-27 18:07] VITALS: BP 209/83; PULSE 65; RESP 18; TEMP 36.9; O2SAT 94
--- NOTE | 2023-09-27 18:44 | NUR.NOTE ---
[facility] face to face filled out by Dr Hooks and sent to Care Management for referral to Home Health. Nursing Note:
== END 2023-09-27 18:07 | disposition home or self-care (01) ==
PROVIDERS: Emergency Provider Emergency Medicine; PCP Student in an Organized Health Care Education/Training Program
DX: R22.43 Localized swelling, mass and lump, lower limb, bilateral (principal); L53.9 Erythematous condition, unspecified; I48.91 Unspecified atrial fibrillation; I10 Essential (primary) hypertension; Z79.01 Long term (current) use of anticoagulants
CPT/HCPCS: 36415; 80053; 87040; 96374; 99283; 85025; J1885

== ENCOUNTER 2023-10-30 11:46 | Emergency (ER) | payer MEDICAID, SELFPAY ==
[2023-10-30] VITALS (53 sets, daily range): BP systolic 192–225; BP diastolic 69–84; PULSE 64–84; RESP 15; TEMP 36.8; O2SAT 96–99
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
[2023-10-30 13:31] LABS: Abs Immature Grans 0.04 10^3/uL (0.0-0.06); Absolute Basophil Count 0.04 10^3/uL (0.0-0.2); Absolute Eosinophil Count 0.17 10^3/uL (0.0-0.7); Absolute Monocyte Count 0.68 10^3/uL (0.1-0.8); Absolute Neutrophil Count 3.99 10^3/uL (1.2-6.7); Basophils % 0.6 %; Eosinophils % 2.5 %; HGB 13.3 g/dL (13.5-17.5); Immature Grans % 0.6 %; Lymphocytes % 27.9 %; MCH 30.6 pg (27.0-33.0); MCHC 31.7 % (32.0-36.0); MCV 97 fL (80-95); Neutrophils % 58.4 %; Platelet Count 192 10^3/uL (130-400); RBC 4.35 10^6/uL (4.36-5.78); RDW 13.1 % (11.8-14.1); RDW-SD 47.2 fL; WBC 6.82 10^3/uL (4.4-10.8)
[2023-10-30 13:42] LABS: PTT Activated 23.3 sec (23.6-32.8); Prothrombin Time 10.5 sec (9.1-11.1)
[2023-10-30 13:47] LABS: ALT 23 U/L (16-63); AST 14 U/L (15-37); Albumin 3.5 g/dL (3.4-5.0); Alkaline Phosphatase 78 U/L (46-116); Anion Gap 5.8 mmol/L (3-11); BUN 12 mg/dL (7-18); CO2 30.2 mmol/L (21.0-32.0); CREATININE 1.1 mg/dL (0.70-1.30); Calcium 8.9 mg/dL (8.5-10.1); Chloride 106 mmol/L (98-107); Estimated GFR 75.43 (mL/min/1.73m2); Glucose 89 mg/dL (74-106); Magnesium 1.9 mg/dL (1.8-2.4); Potassium 3.9 mmol/L (3.5-5.1); Sodium 142 mmol/L (136-145); Total Protein 7.5 g/dL (6.4-8.2)
[2023-10-30 14:09] LABS: Procalcitonin < 0.1 ng/mL
== END 2023-10-30 15:16 | disposition home or self-care (01) ==
PROVIDERS: Emergency Provider Emergency Medicine; PCP Student in an Organized Health Care Education/Training Program
DX: I89.0 Lymphedema, not elsewhere classified
CPT/HCPCS: 36415; 80053; 84145; 99283; 83735; 85025; 85610; 85730; 99284

== ENCOUNTER 2024-04-14 13:33 | Outpatient (REF) | payer MEDICAID, SELFPAY | END 2024-04-14 13:34 | disposition home or self-care (01) | LOC: NCHCN 13:33 | PROVIDERS: PCP Student in an Organized Health Care Education/Training Program; Visit Provider Student in an Organized Health Care Education/Training Program | DX: L03.115 Cellulitis of right lower limb (principal) | CPT/HCPCS: 87070; 87205 ==

== ENCOUNTER 2024-06-08 14:11 | Emergency (ER) | payer MEDICAID, SELFPAY ==
[2024-06-08 14:21] VITALS: BP 149/54; PULSE 78; RESP 14; TEMP 36.7; O2SAT 98
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
[2024-06-08] MEDS: ceFAZolin 2 GM/50 ML BAG IVPB (16:46)
[2024-06-08 16:49] LABS: Lactate 1.2 mmol/L (<or=2.0)
[2024-06-08 16:50] LABS: Abs Immature Grans 0.04 10^3/uL (0.0-0.06); Absolute Basophil Count 0.03 10^3/uL (0.0-0.2); Absolute Eosinophil Count 0.15 10^3/uL (0.0-0.7); Absolute Lymphocyte Count 1.85 10^3/uL (1.2-3.4); Absolute Monocyte Count 0.63 10^3/uL (0.1-0.8); Absolute Neutrophil Count 4.77 10^3/uL (1.2-6.7); Basophils % 0.4 %; HCT 40.5 % (40.0-50.0); HGB 12.8 g/dL (13.5-17.5); Immature Grans % 0.5 %; Lymphocytes % 24.8 %; MCHC 31.6 % (32.0-36.0); MCV 95 fL (80-95); MPV 8.4 fL (8.0-11.0); Monocytes % 8.4 %; Neutrophils % 63.9 %; Platelet Count 204 10^3/uL (130-400); RBC 4.26 10^6/uL (4.36-5.78); RDW 13.5 % (11.8-14.1); RDW-SD 47.3 fL; WBC 7.47 10^3/uL (4.4-10.8)
[2024-06-08] MEDS: VANCOMYCIN 2,000 MG in Normal Saline 500 ML 250 MG IVPB (16:53)
[2024-06-08 17:07] LABS: ALT 33 U/L (16-63); AST 24 U/L (15-37); Albumin 3.2 g/dL (3.4-5.0); Alkaline Phosphatase 86 U/L (46-116); Anion Gap 9.8 mmol/L (3-11); BUN 13 mg/dL (7-18); Bilirubin, Total 0.4 mg/dL (0.2-1.0); CO2 24.2 mmol/L (21.0-32.0); CREATININE 0.9 mg/dL (0.70-1.30); Calcium 9.2 mg/dL (8.5-10.1); Chloride 107 mmol/L (98-107); Estimated GFR 95.37 (mL/min/1.73m2); Glucose 90 mg/dL (74-106); Potassium 4.2 mmol/L (3.5-5.1); Sodium 141 mmol/L (136-145); Total Protein 7.8 g/dL (6.4-8.2)
[2024-06-08] MEDS: methylPREDNISolone SUCC 125 MG VIAL IVP (19:20)
[2024-06-08] MEDS: Famotidine 20 MG/2 ML VIAL IVP (19:21)
[2024-06-08] MEDS: diphenhydrAMINE 50 MG/ML VIAL 25 MG IVP (19:21)
--- NOTE | 2024-06-08 19:57 | NUR.NOTE ---
Nursing Note: this nurse into room multiple times, pt declined VS multiple times. including at discharge.
== END 2024-06-08 19:58 | disposition home or self-care (01) ==
PROVIDERS: Emergency Provider Physician Assistant; PCP Student in an Organized Health Care Education/Training Program
DX: I89.0 Lymphedema, not elsewhere classified (principal); I87.8 Other specified disorders of veins; G47.33 Obstructive sleep apnea (adult) (pediatric); I48.91 Unspecified atrial fibrillation; I10 Essential (primary) hypertension; E66.01 Morbid (severe) obesity due to excess calories; Z79.01 Long term (current) use of anticoagulants
CPT/HCPCS: 36415; 80053; 96365; 96366; 96368; 96375; 99284; 83605; 85025; J0690; J1200; J2919; J3370

== ENCOUNTER 2024-08-23 22:18 | Outpatient (REF) | payer MEDICAID, SELFPAY | END 2024-08-23 22:19 | disposition home or self-care (01) | LOC: NCHCN 22:18 | PROVIDERS: PCP Student in an Organized Health Care Education/Training Program; Visit Provider Student in an Organized Health Care Education/Training Program | DX: L03.116 Cellulitis of left lower limb (principal) | CPT/HCPCS: 87077; 87070; 87205 ==

== ENCOUNTER 2024-08-30 13:50 | Outpatient (REF) | payer MEDICAID, SELFPAY ==
[2024-09-27 10:08] LABS: Fungus Smear No Fungi Seen
[2024-09-27 10:09] LABS: Fungus Smear No Fungi Seen
== END 2024-08-30 13:51 | disposition home or self-care (01) ==
LOC: LBN 13:50
PROVIDERS: PCP Student in an Organized Health Care Education/Training Program; Visit Provider Physical Therapy Assistant
DX: S81.802A Unspecified open wound, left lower leg, initial encounter (principal); S81.801A Unspecified open wound, right lower leg, initial encounter
CPT/HCPCS: 87102; 87107; 87206

== ENCOUNTER 2024-09-25 19:32 | Outpatient (REF) | payer MEDICAID, SELFPAY ==
[2024-09-25 20:33] LABS: HCT 38.9 % (40.0-50.0); HGB 12.3 g/dL (13.5-17.5); MCH 29.6 pg (27.0-33.0); MCHC 31.6 % (32.0-36.0); MCV 94 fL (80-95); MPV 8.7 fL (8.0-11.0); Platelet Count 249 10^3/uL (130-400); RBC 4.16 10^6/uL (4.36-5.78); RDW 13.6 % (11.8-14.1); RDW-SD 46.4 fL; WBC 9.72 10^3/uL (4.4-10.8)
[2024-09-25 20:44] LABS: ESR 45 mm/hr (0-20)
[2024-09-25 20:51] LABS: ALT 34 U/L (16-63); AST 19 U/L (15-37); Albumin 3.2 g/dL (3.4-5.0); Alkaline Phosphatase 97 U/L (46-116); Anion Gap 11.5 mmol/L (3-11); BUN 23 mg/dL (7-18); Bilirubin, Total 0.3 mg/dL (0.2-1.0); C-Reactive Protein 1.08 mg/dL (<or=0.5); CO2 22.5 mmol/L (21.0-32.0); Calcium 8.7 mg/dL (8.5-10.1); Chloride 103 mmol/L (98-107); Estimated GFR 67.53 (mL/min/1.73m2); Glucose 99 mg/dL (74-106); Potassium 4.5 mmol/L (3.5-5.1); Sodium 137 mmol/L (136-145); Total Protein 6.9 g/dL (6.4-8.2)
== END 2024-09-25 19:33 | disposition home or self-care (01) ==
LOC: NCHCN 19:32
PROVIDERS: PCP Student in an Organized Health Care Education/Training Program; Visit Provider Student in an Organized Health Care Education/Training Program
DX: L03.116 Cellulitis of left lower limb (principal)
CPT/HCPCS: 80053; 85027; 85652; 86140

== ENCOUNTER 2024-12-04 14:20 | Inpatient (IN) | payer MEDICARE, MEDICAID, SELFPAY ==
[2024-12-04] VITALS (47 sets, daily range): BP systolic 106–207; BP diastolic 52–82; PULSE 32–144; RESP 14–28; TEMP 37–38.8; O2SAT 86–100
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
[2024-12-04] MEDS: HYDROmorphone 2 MG/ML SYR 1 MG IVP ×3 (15:57→23:05)
[2024-12-04] MEDS: Lactated Ringers 1,000 ML 1000 ML IV (15:58)
[2024-12-04 15:59] LABS: Abs Immature Grans 0.28 10^3/uL (0.0-0.06); HCT 36.6 % (40.0-50.0); HGB 11.7 g/dL (13.5-17.5); Immature Grans % 1.7 %; MCH 29.7 pg (27.0-33.0); MCHC 32.0 % (32.0-36.0); MCV 93 fL (80-95); MPV 8.4 fL (8.0-11.0); Platelet Count 260 10^3/uL (130-400); RBC 3.94 10^6/uL (4.36-5.78); RDW 14.2 % (11.8-14.1); RDW-SD 48.5 fL; WBC 16.11 10^3/uL (4.4-10.8)
[2024-12-04 16:08] LABS: ESR 37 mm/hr (0-20)
[2024-12-04 16:29] LABS: Procalcitonin < 0.10 ng/mL
[2024-12-04] MEDS: CEFEPIME 1 GM in Normal Saline 50 ML IVPB (17:05)
[2024-12-04 17:18] LABS: INR 1.0 (0.9-1.1); Prothrombin Time 10.2 sec (9.1-11.1)
[2024-12-04 17:33] LABS: Troponin I 17 ng/L (<or=76)
[2024-12-04] MEDS: VANCOMYCIN/WATER (PEG) 1.5 GM/300 ML BAG IVPB ×2 (17:37→22:22)
[2024-12-04 18:20] LABS: ALT 36 U/L (16-63); AST 23 U/L (15-37); Albumin 2.9 g/dL (3.4-5.0); Alkaline Phosphatase 83 U/L (46-116); Anion Gap 10.1 mmol/L (3-11); BUN 14 mg/dL (7-18); Bilirubin, Total 0.2 mg/dL (0.2-1.0); C-Reactive Protein 5.52 mg/dL (<or=0.5); CO2 19.9 mmol/L (21.0-32.0); Calcium 8.6 mg/dL (8.5-10.1); Chloride 104 mmol/L (98-107); Estimated GFR 67.11 (mL/min/1.73m2); Glucose 131 mg/dL (74-106); Magnesium 1.7 mg/dL (1.8-2.4); NT-proBNP 164 pg/mL (<300); Potassium 5.0 mmol/L (3.5-5.1); Sodium 134 mmol/L (136-145); Total Protein 6.9 g/dL (6.4-8.2); Troponin I 10 ng/L (<or=76)
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
[2024-12-04 20:28] LABS: COVID-19 PCR Negative (Negative); RSV PCR Negative (Negative)
[2024-12-04 20:56] LABS: Glucose Negative (Negative)
[2024-12-04 22:55] LABS: TSH (W/Ref FT4) 1.19 uIU/mL (0.36-3.74)
[2024-12-04] MEDS: Carvedilol 6.25 MG TAB PO (22:57)
[2024-12-04] MEDS: hydrALAZINE 10 MG TAB 40 MG PO (22:57)
[2024-12-04] MEDS: Apixaban 5 MG TAB PO (22:57)
[2024-12-04] MEDS: Normal Saline Flush 10 ML SYR IVP (23:00)
[2024-12-04] MEDS: Doxazosin 1 MG TAB 2 MG PO (23:00)
[2024-12-04] MEDS: Gabapentin 300 MG CAP PO (23:31)
[2024-12-04 23:43] LABS: MRSA PCR Negative (Negative)
[2024-12-05] LABS: Cannabinoids THC Negative (Negative); METHADONE URINE SCREEN Negative (Negative)
[2024-12-05] MEDS: CEFEPIME 2 GM in Normal Saline 50 ML IVPB ×4 (00:22→23:46)
[2024-12-05] MEDS: Normal Saline 1,000 ML 125 ML IV (00:29)
[2024-12-05] MEDS: MAGNESIUM SULFATE 2 GM/50 ML BAG IV_INF (00:58)
[2024-12-05] MEDS: VANCOMYCIN/WATER (PEG) 1 GM/200 ML BAG IV ×3 (04:30→20:22)
[2024-12-05 04:34] VITALS: BP 123/60; PULSE 104; RESP 18; TEMP 37; O2SAT 96
[2024-12-05] MEDS: HYDROmorphone 2 MG/ML SYR 1 MG IVP ×4 (05:19→22:29)
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
[2024-12-05] MEDS: Gabapentin 300 MG CAP PO (06:42)
[2024-12-05 06:46] LABS: HCT 33.9 % (40.0-50.0); HGB 10.9 g/dL (13.5-17.5); MCH 30.0 pg (27.0-33.0); MCHC 32.2 % (32.0-36.0); MCV 93 fL (80-95); MPV 8.4 fL (8.0-11.0); Platelet Count 254 10^3/uL (130-400); RBC 3.63 10^6/uL (4.36-5.78); RDW 14.2 % (11.8-14.1); RDW-SD 48.5 fL; WBC 14.52 10^3/uL (4.4-10.8)
[2024-12-05 07:43] VITALS: BP 125/55; PULSE 103; RESP 16; TEMP 36.9; O2SAT 96
[2024-12-05 07:52] LABS: ALT 22 U/L (16-63); AST 15 U/L (15-37); Albumin 2.1 g/dL (3.4-5.0); Alkaline Phosphatase 62 U/L (46-116); BUN 13 mg/dL (7-18); Bilirubin, Total 0.5 mg/dL (0.2-1.0); Calcium 8.6 mg/dL (8.5-10.1); Chloride 105 mmol/L (98-107); Estimated GFR 74.50 (mL/min/1.73m2); Glucose 125 mg/dL (74-106); Magnesium 2.0 mg/dL (1.8-2.4); Potassium 4.1 mmol/L (3.5-5.1); Sodium 133 mmol/L (136-145); Total Protein 6.5 g/dL (6.4-8.2)
[2024-12-05] MEDS: Apixaban 5 MG TAB PO ×2 (08:31→20:21)
[2024-12-05] MEDS: Normal Saline Flush 10 ML SYR IVP ×2 (08:31→20:29)
[2024-12-05] MEDS: Carvedilol 6.25 MG TAB PO ×2 (08:31→20:21)
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
[2024-12-05 10:35] LABS: CO2 13.5 mmol/L (21.0-32.0)
[2024-12-05 10:48] LABS: Anion Gap 14.5 mmol/L (3-11)
[2024-12-05 11:33] VITALS: BP 124/60; PULSE 60; RESP 16; TEMP 36.5; O2SAT 96
[2024-12-05 12:38] LABS: Vancomycin, Random 20.3 ug/mL
[2024-12-05 15:26] VITALS: BP 121/58; PULSE 98; RESP 16; TEMP 37; O2SAT 99
--- NOTE | 2024-12-05 16:38 | NUR.NOTE ---
Nursing Note: Pt currently has no wraps on his legs (pt w/ hx of lymphedema). Pt was asked if I could re-wrap his legs but patient declined. Pt stated he will let the nursing staff know when he wants his legs re-wrapped.
[2024-12-05] MEDS: traMADol 50 MG TAB 25 MG PO (17:04)
[2024-12-05 19:24] VITALS: BP 116/56; PULSE 98; RESP 18; TEMP 37.5; O2SAT 98
[2024-12-05] MEDS: Doxazosin 1 MG TAB 2 MG PO (20:21)
[2024-12-05 23:56] VITALS: BP 105/55; PULSE 90; RESP 17; TEMP 36.7; O2SAT 96
[2024-12-06] MEDS: VANCOMYCIN/WATER (PEG) 1 GM/200 ML BAG IV ×3 (04:05→20:38)
[2024-12-06 04:14] VITALS: BP 106/60; PULSE 100; RESP 18; TEMP 36.8; O2SAT 97
[2024-12-06] MEDS: HYDROmorphone 2 MG/ML SYR 1 MG IVP ×3 (06:09→22:14)
[2024-12-06 06:53] LABS: HCT 29.4 % (40.0-50.0); HGB 9.4 g/dL (13.5-17.5); MCH 29.6 pg (27.0-33.0); MCHC 32.0 % (32.0-36.0); MCV 93 fL (80-95); MPV 8.1 fL (8.0-11.0); Platelet Count 198 10^3/uL (130-400); RBC 3.18 10^6/uL (4.36-5.78); RDW 14.1 % (11.8-14.1); RDW-SD 48.2 fL; WBC 10.72 10^3/uL (4.4-10.8)
--- NOTE | 2024-12-06 07:05 | W.PM.PROGNOT ---
Date of Service Date of service: 12/05/24 Time of Service: 14:35 Assessment and Plan Assessment and plan (1) Sepsis: Start date: 12/04/24 Status: Acute Assessment and plan: -Patient met sepsis criteria with elevated white blood cell count, fever and likely source of infection being cellulitis of the right lower extremity and maggots in the wounds of the left lower extremity - No signs of endorgan damage - Was started on vancomycin and cefepime which will be continued - Follow-up blood culture results (2) Cellulitis of right lower leg: Start date: 12/04/24 Status: Acute Assessment and plan: - Likely source of infection as noted above (3) Hypomagnesemia: Start date: 12/04/24 Status: Acute Assessment and plan: - Replaced (4) Obesity, morbid, BMI 40.0-49.9: Status: Chronic Assessment and plan: - Ongoing weight loss discussions with PCP recommended (5) Lymphedema: Status: Chronic Assessment and plan: - Continue wrapping as outpatient (6) Atrial fibrillation: Assessment and plan: -Slightly tachycardic upon admission with sepsis usually controlled. -On carvedilol and Eliquis which will be continued. (7) Hypertension: Assessment and plan: -Continue home medications. (8) Obstructive sleep apnea: Assessment and plan: -Patient states that this has been corrected by surgical intervention on his palate. -does not wear CPAP or BiPAP. (9) Right heart failure due to pulmonary hypertension: Status: Chronic Assessment and plan: -Morbid obesity with lymphedema and on chronic Lasix for edema. -Last echocardiogram on 03/31/2019 revealed increased PA pressures with normal left ventricular ejection fraction. -lasix restarted Subjective Subjective Interval history since last seen: Patient appreciates that someone is working on his foot by podiatry will be in to see him soon. Exam Narrative Exam Narrative: Well-appearing older gentleman lying in bed in no acute distress, ANO x 4, heart regular rhythm, lungs good auscultation bilaterally, abdomen soft, nontender, nondistended, left lower extremity red warm and swollen with maggots in between 1st and 2nd toes that are visible Objective Last Vital Signs Temp 98.2 F 12/06/24 04:14 Pulse 100 H 12/06/24 04:14 Resp 18 12/06/24 04:14 BP 106/60 12/06/24 04:14 Pulse Ox 97 12/06/24 04:14 Laboratory Results - last 24 hr 12/05/24 12/05/24 12/06/24 06:27 11:18 06:40 WBC 10.72 RBC 3.18 L Hgb 9.4 L Hct 29.4 L MCV 93 MCH 29.6 MCHC 32.0 RDW 14.1 Plt Count 198 MPV 8.1 Sodium 133 L Potassium 4.1 Chloride 105 Carbon Dioxide 13.5 L Anion Gap 14.5 H BUN 13 Creatinine 1.1 Est GFR (CKD-EPI 2020) 74.50 Glucose 125 H Calcium 8.6 Magnesium 2.0 Total Bilirubin 0.5 AST 15 ALT 22 Alkaline Phosphatase 62 Total Protein 6.5 Albumin 2.1 L Random Vancomycin 20.3 PAWSS Have you Been Recently Intoxicated or Drunk Within the Last 30 days?: No Have you Ever Experienced Previous Episodes of Alcohol Withdrawal?: No Have you ever Experienced Withdrawal Seizures?: No Have you ever Experienced Delirium Tremens(DT)s?: No Have you ever undergone Alcohol Rehabilitation Treatment (i.e, inpt ot outpatient treatment programs)?: No Have you ever Experienced Blackouts?: No Have you ever Combined Alcohol with other Downers within the last 90 days?: No Have you ever Combined Alcohol with any other Substance of Abuse during the last 90 days?: No Positive Blood Alcohol level on Presentation? [PCS.BAL]: No Evidence of Increased Autonomic Activity (i.e. HR>120, tremor, sweating, agitation, nausea)?: No Result: 0 Time Spent with Patient Time Spent with Patient: >50 minutes Time was spent: preparing to see the patient(eg.review tests), obtaining and/or reviewing separately otained hiistory, ordering medications,tests, procedures, referring, communicating with other health care information associate, indepentently interpreting results, counseling the patient and care coordination
[2024-12-06 07:17] VITALS: BP 125/61; PULSE 94; RESP 18; TEMP 37.1; O2SAT 96
[2024-12-06 07:21] LABS: ALT 19 U/L (16-63); AST 12 U/L (15-37); Albumin 1.6 g/dL (3.4-5.0); Alkaline Phosphatase 51 U/L (46-116); Anion Gap 7.8 mmol/L (3-11); BUN 12 mg/dL (7-18); Bilirubin, Total 0.2 mg/dL (0.2-1.0); CO2 21.2 mmol/L (21.0-32.0); Calcium 8.0 mg/dL (8.5-10.1); Chloride 106 mmol/L (98-107); Estimated GFR 83.52 (mL/min/1.73m2); Glucose 128 mg/dL (74-106); Magnesium 2.0 mg/dL (1.8-2.4); Potassium 3.6 mmol/L (3.5-5.1); Sodium 135 mmol/L (136-145); Total Protein 5.8 g/dL (6.4-8.2)
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
[2024-12-06] MEDS: traMADol 50 MG TAB 25 MG PO (09:04)
[2024-12-06] MEDS: Apixaban 5 MG TAB PO ×2 (09:10→20:38)
[2024-12-06] MEDS: Carvedilol 6.25 MG TAB PO ×2 (09:14→20:38)
[2024-12-06] MEDS: Normal Saline Flush 10 ML SYR IVP ×3 (09:16→20:45)
[2024-12-06] MEDS: CEFEPIME 2 GM in Normal Saline 100 ML IVPB ×2 (09:28→14:25)
--- NOTE | 2024-12-06 10:10 | PDOC.CMPRO ---
Date of service: 12/06/24 Time of Service: 10:12 Care Management Progress Note Progress Note Text Progress Note Text: Marcin was sitting up in bed chatting with a visitor when CM met with him. He seemed to be in good spirits and easily engaged with CM. Marcin was seen by Dr. Navarrete again today who examined and redressed his wounds. Only 1 maggot was found in his left foot wound and she found the appearance of the wounds much improved from yesterday. She left orders for wound care and noted that Marcin is okay for discharge from a Podiatry standpoint. CM spoke with Merari Marcin's registered nurse hh case manager at [facility]. She was able to share the issues she is working on with Marcin, which includes trying to get his social security allotment increased to be able to provide more care. She reported that she believes he is close to qualifying for LTM clinically and may already qualify financially. CM will provide Marcin with a LTM application and Patient Financial Assistance packet. Discharge Potential Discharge Needs: PCP F/U Appt and Surgical F/U Appt Anticipated Barriers to Discharge: None Identified Patient/Family Education Needs: Review discharge instructions, discuss Ask Me Three Transportation: RCT Plan: Anticipate Marcin will be discharged home with a resumption of home health services for nursing, when medically cleared. He will follow up with his community providers and plan of care and transport via RCT. CM will follow and continue to support discharge planning efforts. Social Determinants of Health Screening Will the Patient Participate in the Screening?: Declined to provide Do you worry about having a steady place to live?: choose not to answer
--- NOTE | 2024-12-06 11:21 | W.PM.PROGNOT ---
Date of Service Date of service: 12/06/24 Time of Service: 11:21 Assessment and Plan Assessment and plan (1) Sepsis: Start date: 12/04/24 Status: Acute Assessment and plan: -Patient met sepsis criteria with elevated white blood cell count, fever and likely source of infection being cellulitis of the right lower extremity and maggots in the wounds of the left lower extremity - No signs of endorgan damage - Was started on vancomycin and cefepime which will be continued - Follow-up blood culture results -apprecaite Podiatry involvement, awaiting final recs for possible debridement (2) Cellulitis of right lower leg: Start date: 12/04/24 Status: Acute Assessment and plan: - Likely source of infection as noted above (3) Hypomagnesemia: Start date: 12/04/24 Status: Acute Assessment and plan: - Replaced (4) Obesity, morbid, BMI 40.0-49.9: Status: Chronic Assessment and plan: - Ongoing weight loss discussions with PCP recommended (5) Lymphedema: Status: Chronic Assessment and plan: - Continue wrapping as outpatient (6) Atrial fibrillation: Assessment and plan: -Slightly tachycardic upon admission with sepsis usually controlled. -On carvedilol and Eliquis which will be continued. (7) Hypertension: Assessment and plan: -Continue home medications. (8) Obstructive sleep apnea: Assessment and plan: -Patient states that this has been corrected by surgical intervention on his palate. -does not wear CPAP or BiPAP. (9) Right heart failure due to pulmonary hypertension: Status: Chronic Assessment and plan: -Morbid obesity with lymphedema and on chronic Lasix for edema. -Last echocardiogram on 03/31/2019 revealed increased PA pressures with normal left ventricular ejection fraction. -lasix restarted Subjective Subjective Interval history since last seen: Patient states that he is doing well and understands the plan is to continue IV antibiotic therapy.. Otherwise he has no other complaints concerns at this time. Exam Narrative Exam Narrative: Well-appearing older gentleman lying in bed in no acute distress, ANO x 4, heart regular rhythm, lungs good auscultation bilaterally, abdomen soft, nontender, nondistended, left lower extremity loosely wrapped in bandage, RLE red, warm swollen Objective Last Vital Signs Temp 98.8 F 12/06/24 07:17 Pulse 94 H 12/06/24 07:17 Resp 18 12/06/24 07:17 BP 125/61 12/06/24 07:17 Pulse Ox 96 12/06/24 07:17 Laboratory Results - last 24 hr 12/05/24 12/06/24 11:18 06:40 WBC 10.72 RBC 3.18 L Hgb 9.4 L Hct 29.4 L MCV 93 MCH 29.6 MCHC 32.0 RDW 14.1 Plt Count 198 MPV 8.1 Sodium 135 L Potassium 3.6 Chloride 106 Carbon Dioxide 21.2 Anion Gap 7.8 BUN 12 Creatinine 1.0 Est GFR (CKD-EPI 2020) 83.52 Glucose 128 H Calcium 8.0 L Magnesium 2.0 Total Bilirubin 0.2 AST 12 L ALT 19 Alkaline Phosphatase 51 Total Protein 5.8 L Albumin 1.6 L Random Vancomycin 20.3 PAWSS Have you Been Recently Intoxicated or Drunk Within the Last 30 days?: No Have you Ever Experienced Previous Episodes of Alcohol Withdrawal?: No Have you ever Experienced Withdrawal Seizures?: No Have you ever Experienced Delirium Tremens(DT)s?: No Have you ever undergone Alcohol Rehabilitation Treatment (i.e, inpt ot outpatient treatment programs)?: No Have you ever Experienced Blackouts?: No Have you ever Combined Alcohol with other Downers within the last 90 days?: No Have you ever Combined Alcohol with any other Substance of Abuse during the last 90 days?: No Positive Blood Alcohol level on Presentation? [PCS.BAL]: No Evidence of Increased Autonomic Activity (i.e. HR>120, tremor, sweating, agitation, nausea)?: No Result: 0 Time Spent with Patient Time Spent with Patient: >50 minutes Time was spent: preparing to see the patient(eg.review tests), obtaining and/or reviewing separately otained hiistory, ordering medications,tests, procedures, referring, communicating with other health team primary care physician, indepentently interpreting results, counseling the patient and care coordination
[2024-12-06 12:00] VITALS: BP 126/82; PULSE 107; RESP 22; TEMP 37.6; O2SAT 98
--- NOTE | 2024-12-06 12:09 | W.PM.PROGNOT ---
Date of Service Date of service: 12/06/24 Time of Service: 12:09 Assessment and Plan Assessment and plan (1) Sepsis: Status: Acute (2) Pain: Status: Acute (3) Venous stasis of both lower extremities: Status: Acute (4) Bright red blood per rectum: Status: Acute (5) Lymphedema: Status: Chronic (6) Venous stasis dermatitis of both lower extremities: (7) Obesity, morbid, BMI 40.0-49.9: Status: Chronic (8) Infestation, maggots: Status: Acute Assessment and plan: Patient was evaluated bedside today. Noted to be resting comfortably however does report pain to the right lower extremity states that pain is overall much improved however does persist to the right describes it as an infection pain. Unable to lift his legs however able to ambulate well with a cane with assisted transfers. Left foot now with only 1 maggot remaining. Interdigitally there are no deep ulcers some superficial crusting noted dorsally, some moisture noted to the webspaces however vastly resolved since yesterday. No evidence for ulcerations anterior to the legs however posteriorly ulcers do persist. I recommend daily dressing changes with Dakin's, dry dressing interdigitally bilaterally. I recommend multilayer compression wraps bilateral lower extremity starting from the distal aspect of the metatarsophalangeal joints going proximal with about 50% overlap. These dressings to be changed Wednesday. No surgical intervention is planned or indicated at this time as the wound appears to be shallow and will respond well to compression. I do recommend continuing antibiotics which seems to be working very well with resolved leukocytosis. Patient is okay to be discharged from a podiatry standpoint. He is to follow-up at [facility] wound care center as scheduled. Home health is to continue dressing changes as above upon discharge. Subjective Subjective Interval history since last seen: Patient was seen bedside today resting comfortably. He does report difficulty weightbearing. Does report continued pain to the right leg and describes it as an infection pain. Reports difficulty ambulating due to this pain and states that otherwise he is able to tolerate walking pretty okay well at home. Denies nausea vomiting chills fever diarrhea at this time. Exam Extrem Other: Bilateral lower extremity exam: Vascular: Pulses are nonpalpable bilaterally secondary to edema. Severe lymphedema noted bilaterally. Venous/lymphedema ulcers noted bilaterally to the posterior calf with the bleeding Skin: Stasis dermatitis/lymphedema ulcers noted bilateral lower extremity posteriorly.. 1 maggot noted to the left foot dressings. Left interdigital webspace is noted to be without ulceration, dorsally there is some crustiness at remaining. No erythema noted to the feet. Nearly resolved erythema noted to the calves bilaterally. MSK: Muscle strength noted to be intact however pain bilaterally secondary to ulcers. Pain reported to the right calf Objective Last Vital Signs Temp 98.8 F 12/06/24 07:17 Pulse 94 H 12/06/24 07:17 Resp 18 12/06/24 07:17 BP 125/61 12/06/24 07:17 Pulse Ox 96 12/06/24 07:17 Laboratory Results - last 24 hr 12/05/24 12/06/24 11:18 06:40 WBC 10.72 RBC 3.18 L Hgb 9.4 L Hct 29.4 L MCV 93 MCH 29.6 MCHC 32.0 RDW 14.1 Plt Count 198 MPV 8.1 Sodium 135 L Potassium 3.6 Chloride 106 Carbon Dioxide 21.2 Anion Gap 7.8 BUN 12 Creatinine 1.0 Est GFR (CKD-EPI 2020) 83.52 Glucose 128 H Calcium 8.0 L Magnesium 2.0 Total Bilirubin 0.2 AST 12 L ALT 19 Alkaline Phosphatase 51 Total Protein 5.8 L Albumin 1.6 L Random Vancomycin 20.3 PAWSS Have you Been Recently Intoxicated or Drunk Within the Last 30 days?: No Have you Ever Experienced Previous Episodes of Alcohol Withdrawal?: No Have you ever Experienced Withdrawal Seizures?: No Have you ever Experienced Delirium Tremens(DT)s?: No Have you ever undergone Alcohol Rehabilitation Treatment (i.e, inpt ot outpatient treatment programs)?: No Have you ever Experienced Blackouts?: No Have you ever Combined Alcohol with other Downers within the last 90 days?: No Have you ever Combined Alcohol with any other Substance of Abuse during the last 90 days?: No Positive Blood Alcohol level on Presentation? [PCS.BAL]: No Evidence of Increased Autonomic Activity (i.e. HR>120, tremor, sweating, agitation, nausea)?: No Result: 0 Time Spent with Patient Time Spent with Patient: 35-49 minutes Time was spent: preparing to see the patient(eg.review tests), obtaining and/or reviewing separately otained hiistory, ordering medications,tests, procedures, referring, communicating with other health director of health care marketing, indepentently interpreting results, counseling the patient, care coordination and other
--- NOTE | 2024-12-06 15:44 | PHA.REVIEW2 ---
Pharmacy Admission Review Admission Clinical Review Admission Pharmacy Review: Infestation, maggots (Acute) Hypomagnesemia (Acute) Sepsis (Acute) Pain (Acute) Venous stasis of both lower extremities (Acute) Bright red blood per rectum (Acute) Cellulitis of right lower leg (Acute) ciprofloxacin (From Cipro) Adverse Reaction (Severe, Verified 12/04/24 14:47) sick as a dog and double over in pain environmental/pollen Adverse Reaction (Severe, Uncoded 12/04/24 14:47) rhinitis, itchy eyes Resuscitation Status Full Code Height 5 ft 10 in Weight 158.757 kg Comments Comments/Follow Ups: Follow up on home med question Pharmacy Admission Review Renal Dosing Renal Dosing: BUN 12 mg/dL (7-18) 12/06/24 06:40 Creatinine 1.0 mg/dL (0.70-1.30) 12/06/24 06:40 Medications needing adjustments: Reviewed (CrCl 111.77 mL/min) List of meds needing interventions: Current medications are okay Anticoagulation Anticoagulation: Hgb 9.4 g/dL (13.5-17.5) L 12/06/24 06:40 Hct 29.4 % (40.0-50.0) L 12/06/24 06:40 Plt Count 198 10^3/uL (130-400) 12/06/24 06:40 INR 1.0 (0.9-1.1) 12/04/24 16:55 Creatinine 1.0 mg/dL (0.70-1.30) 12/06/24 06:40 DVT Prophylaxis: Reviewed (Hgb decreased from 10.9) Medications: Apixaban (5mg PO BID) Opiate Usage Evaluate Pain Scale/Pains Meds: Reviewed (hydromorphone 1mg IVP q4h PRN - 4mg / 24hrs) Scheduled Bowel Reg ordered if on Opiates?: No (PRN docusate/Miralax) Relevant Labs Relevant Labs: ESR 37 mm/hr (0-20) H 12/04/24 15:45 Sodium 135 mmol/L (136-145) L 12/06/24 06:40 Potassium 3.6 mmol/L (3.5-5.1) 12/06/24 06:40 Chloride 106 mmol/L (98-107) 12/06/24 06:40 Magnesium 2.0 mg/dL (1.8-2.4) 12/06/24 06:40 C-Reactive Protein 5.52 mg/dL (<or=0.5) H 12/04/24 15:45 Electrolytes, C-Reactive P, ESR: Reviewed Cardiac Review Cardiac Review: Troponin I Cancelled 12/04/24 17:46 NT-Pro-B Natriuret Pep 164 pg/mL (<300) 12/04/24 15:45 Blood Pressure : Heart Rate 110/52 : 93 1546 Blood Pressure : Heart Rate 126/82 : 107 1200 Blood Pressure : Heart Rate 125/61 : 94 0717 Blood Pressure : Heart Rate 106/60 : 100 0414 BP, HR, EF%: Reviewed List meds needing interventions: Has orders for carvedilol 6.25mg BID and lisinopril 40mg daily QTc Review QTc: Reviewed (370 from 10/30/16 - most recent EKG on file) IV to PO Switch IV Medications: Reviewed (cefepime, hydromorphone, vancomycin) Home Meds Home Med List reviewed: Intervened Relevent Home Meds Not ordered & why?: furosemide, hydralazine and triamcinolone cream Per provider holding hydralazine and plans on resuming furosemide today Asked nurse to confirm with patient what dose of carvedilol they take at home. On home med list as 6.25mg BID but most recent fill history shows 12.5mg BID. Waiting to hear back. Current Meds Current Medication Order Review: Reviewed Pharmacy Antibiotic Review Relevant Labs: WBC 10.72 10^3/uL (4.4-10.8) 12/06/24 06:40 Procalcitonin < 0.10 ng/mL 12/04/24 15:45 Temperature 37.4 C Temperature 37.6 C Temperature 37.1 C Temperature 36.8 C Microbiology 12/04/24 16:55 Blood Culture - Preliminary Blood NO GROWTH 24 HOURS 12/04/24 15:45 Blood Culture - Preliminary Blood NO GROWTH 24 HOURS Pharmacy Antibiotic Activity: C/S review and Reviewed, no change Comments: Patient is on vancomycin and cefepime, day 2, for cellulitis/sepsis. Current vancomycin dose is 1000mg q8h with predicted AUC of 454. Repeat level if change in renal function or prolonged therapy required. WBC decreased from 14.52 Comments Comments/Follow Ups: Follow up on home med question
[2024-12-06 15:46] VITALS: BP 110/52; PULSE 93; RESP 16; TEMP 37.4; O2SAT 95
--- NOTE | 2024-12-06 15:58 | NUR.NOTE ---
Nursing Note: pt refused abhinav wraps to BLE
[2024-12-06] MEDS: Furosemide 20 MG TAB PO (16:06)
--- NOTE | 2024-12-06 16:26 | CHAPLAIN ---
Marcin was resting in bed when I visited. We remembered each other from previous admissions. Marcin said he had been up moving around earlier today which tired him out. When I asked if he's in touch with family or friends, he said he has a small support havasupai that includes a local friend along with others who are not local - his son, daughter and another person who is not related to him, but someone he considers like a son or nephew. His local friend is knows how to reach is daughter if needed, Marcin said. Marcin said he would reach out if he felt like he he wanted a longer conversation.
[2024-12-06] MEDS: Doxazosin 1 MG TAB 2 MG PO (20:38)
[2024-12-06 20:46] VITALS: BP 128/59; PULSE 90; RESP 18; TEMP 36.7; O2SAT 96
[2024-12-07] MEDS: CEFEPIME 2 GM in Normal Saline 100 ML IVPB ×3 (00:03→14:45)
[2024-12-07 00:13] VITALS: BP 129/63; PULSE 90; RESP 19; TEMP 37; O2SAT 96
[2024-12-07] MEDS: VANCOMYCIN/WATER (PEG) 1 GM/200 ML BAG IV ×3 (03:54→21:20)
[2024-12-07 03:57] VITALS: BP 129/58; PULSE 89; RESP 18; TEMP 36.5; O2SAT 95
[2024-12-07] MEDS: HYDROmorphone 2 MG/ML SYR 1 MG IVP ×2 (05:01→21:21)
[2024-12-07 06:56] LABS: HCT 28.9 % (40.0-50.0); HGB 9.3 g/dL (13.5-17.5); MCH 29.5 pg (27.0-33.0); MCHC 32.2 % (32.0-36.0); MCV 92 fL (80-95); MPV 8.4 fL (8.0-11.0); Platelet Count 212 10^3/uL (130-400); RBC 3.15 10^6/uL (4.36-5.78); RDW 14.0 % (11.8-14.1); RDW-SD 47.3 fL; WBC 9.64 10^3/uL (4.4-10.8)
[2024-12-07 07:17] LABS: ALT 28 U/L (16-63); AST 17 U/L (15-37); Albumin 1.7 g/dL (3.4-5.0); Alkaline Phosphatase 54 U/L (46-116); Anion Gap 8.9 mmol/L (3-11); BUN 11 mg/dL (7-18); Bilirubin, Total 0.2 mg/dL (0.2-1.0); CO2 22.1 mmol/L (21.0-32.0); Calcium 8.2 mg/dL (8.5-10.1); Chloride 106 mmol/L (98-107); Estimated GFR 74.50 (mL/min/1.73m2); Glucose 165 mg/dL (74-106); Magnesium 2.0 mg/dL (1.8-2.4); Potassium 3.2 mmol/L (3.5-5.1); Sodium 137 mmol/L (136-145); Total Protein 5.8 g/dL (6.4-8.2)
[2024-12-07 08:13] VITALS: BP 129/75; PULSE 89; RESP 16; TEMP 36.9; O2SAT 98
[2024-12-07] MEDS: Normal Saline Flush 10 ML SYR IVP ×2 (09:17→21:23)
[2024-12-07] MEDS: Apixaban 5 MG TAB PO ×2 (09:21→21:22)
[2024-12-07] MEDS: Carvedilol 6.25 MG TAB PO ×2 (09:22→21:22)
[2024-12-07] MEDS: Furosemide 20 MG TAB PO (09:23)
[2024-12-07] MEDS: Tamsulosin 0.4 MG CAPCR PO (09:23)
[2024-12-07] MEDS: Polyethylene Glycol 3350 17 GM PACKET PO (09:32)
--- NOTE | 2024-12-07 09:35 | CMPROGNOTE_ITS ---
Date of service: 12/07/24 Time of Service: 09:35 Care Management Progress Note Progress Note Text Progress Note Text: Marcin was sitting up in a chair when CM met with him. He was complaining of pain in his right leg but stated that it was necessary pain as it was more important that he be out of bed. CM had discussed completing applications for certified adaptive physical educator Medicaid and [facility] Financial Assistance yesterday and provided the forms today. 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 Discharge Potential Discharge Needs: PCP F/U Appt Anticipated Barriers to Discharge: None Identified Patient/Family Education Needs: Review discharge instructions, discuss Ask Me Three Transportation: RCT RCT Transportation: Wheel chair van Plan: Anticipate Marcin will be discharged home with a resumption of home health services for nursing, when medically cleared. He will follow up with his community providers and plan of care and transport via RCT. CM will follow and continue to support discharge planning efforts. Social Determinants of Health Screening Will the Patient Participate in the Screening?: Declined to provide Do you worry about having a steady place to live?: choose not to answer
[2024-12-07 11:29] VITALS: BP 154/59; PULSE 82; RESP 16; TEMP 37; O2SAT 98
[2024-12-07] MEDS: traMADol 50 MG TAB 25 MG PO (13:07)
--- NOTE | 2024-12-07 13:22 | WOUNDCARE ---
This nurse went in to assess wounds and pt states that This is bad timing! I want to eat my lunch and get off my tailbone. I have a whole wound care team at [facility], I don't need you guys to look at it. I dont need another lookie loo Wound Care Report
--- NOTE | 2024-12-07 14:32 | PGE_ITS ---
Date of Service Date of service: 12/07/24 Time of Service: 14:32 Assessment and Plan Assessment and plan (1) Sepsis: Start date: 12/04/24 Status: Acute Assessment and plan: -Patient met sepsis criteria with elevated white blood cell count, fever and likely source of infection being cellulitis of the right lower extremity and maggots in the wounds of the left lower extremity - No signs of endorgan damage - Was started on vancomycin and cefepime which will be continued - Follow-up blood culture results -apprecaite Podiatry involvement, awaiting final recs for possible debridement 12/07/24 no surgical intervention necessary at this point (2) Cellulitis of right lower leg: Start date: 12/04/24 Status: Acute Assessment and plan: - Likely source of infection as noted above 12/07/24 on cefepime/vanc (3) Hypomagnesemia: Start date: 12/04/24 Status: Acute Assessment and plan: - Replaced (4) Obesity, morbid, BMI 40.0-49.9: Status: Chronic Assessment and plan: - Ongoing weight loss discussions with PCP recommended (5) Lymphedema: Status: Chronic Assessment and plan: - Continue wrapping as outpatient (6) Atrial fibrillation: Assessment and plan: -Slightly tachycardic upon admission with sepsis usually controlled. -On carvedilol and Eliquis which will be continued. (7) Hypertension: Assessment and plan: -Continue home medications. (8) Obstructive sleep apnea: Assessment and plan: -Patient states that this has been corrected by surgical intervention on his palate. -does not wear CPAP or BiPAP. (9) Right heart failure due to pulmonary hypertension: Status: Chronic Assessment and plan: -Morbid obesity with lymphedema and on chronic Lasix for edema. -Last echocardiogram on 03/31/2019 revealed increased PA pressures with normal left ventricular ejection fraction. -lasix restarted Subjective Subjective Interval history since last seen: no new complaints, no diarrhea Exam Narrative Exam Narrative: no respiratory distress ncat mmm no oral candidiasis BLE wrapped with bandages Objective Last Vital Signs Temp 37.0 C 12/07/24 11:29 Pulse 82 12/07/24 11:29 Resp 16 12/07/24 11:29 BP 154/59 H 12/07/24 11:29 Pulse Ox 98 12/07/24 11:29 Laboratory Results - last 24 hr 12/07/24 06:35 WBC 9.64 RBC 3.15 L Hgb 9.3 L Hct 28.9 L MCV 92 MCH 29.5 MCHC 32.2 RDW 14.0 Plt Count 212 MPV 8.4 Sodium 137 Potassium 3.2 L Chloride 106 Carbon Dioxide 22.1 Anion Gap 8.9 BUN 11 Creatinine 1.1 Est GFR (CKD-EPI 2020) 74.50 Glucose 165 H Calcium 8.2 L Magnesium 2.0 Total Bilirubin 0.2 AST 17 ALT 28 Alkaline Phosphatase 54 Total Protein 5.8 L Albumin 1.7 L PAWSS Have you Been Recently Intoxicated or Drunk Within the Last 30 days?: No Have you Ever Experienced Previous Episodes of Alcohol Withdrawal?: No Have you ever Experienced Withdrawal Seizures?: No Have you ever Experienced Delirium Tremens(DT)s?: No Have you ever undergone Alcohol Rehabilitation Treatment (i.e, inpt ot outpatient treatment programs)?: No Have you ever Experienced Blackouts?: No Have you ever Combined Alcohol with other Downers within the last 90 days?: No Have you ever Combined Alcohol with any other Substance of Abuse during the last 90 days?: No Positive Blood Alcohol level on Presentation? [PCS.BAL]: No Evidence of Increased Autonomic Activity (i.e. HR>120, tremor, sweating, agitation, nausea)?: No Result: 0 Time Spent with Patient Time Spent with Patient: 25-34 minutes Time was spent: preparing to see the patient(eg.review tests), obtaining and/or reviewing separately otained hiistory, ordering medications,tests, procedures, referring, communicating with other health animal care technician, indepentently interpreting results, counseling the patient and care coordination
[2024-12-07 15:20] VITALS: BP 129/64; PULSE 82; RESP 16; TEMP 37.1; O2SAT 96
[2024-12-07] MEDS: Doxazosin 1 MG TAB 2 MG PO (21:22)
[2024-12-07 21:34] VITALS: BP 125/58; PULSE 89; RESP 15; O2SAT 96
[2024-12-08] MEDS: CEFEPIME 2 GM in Normal Saline 100 ML IVPB ×3 (00:06→13:58)
[2024-12-08 00:16] VITALS: BP 116/53; PULSE 85; RESP 15; TEMP 37.1; O2SAT 95
[2024-12-08 03:40] VITALS: BP 137/67; PULSE 85; RESP 15; TEMP 37; O2SAT 95
[2024-12-08] MEDS: VANCOMYCIN/WATER (PEG) 1 GM/200 ML BAG IV (03:54)
[2024-12-08] MEDS: Acetaminophen 325 MG TAB 650 MG PO ×2 (04:08→15:18)
[2024-12-08] MEDS: HYDROmorphone 2 MG/ML SYR 1 MG IVP ×2 (04:08→21:24)
[2024-12-08 06:41] LABS: Abs Immature Grans 0.15 10^3/uL (0.0-0.06); HCT 30.2 % (40.0-50.0); HGB 9.6 g/dL (13.5-17.5); Immature Grans % 1.9 %; MCH 29.5 pg (27.0-33.0); MCHC 31.8 % (32.0-36.0); MCV 93 fL (80-95); MPV 8.3 fL (8.0-11.0); Platelet Count 240 10^3/uL (130-400); RBC 3.25 10^6/uL (4.36-5.78); RDW 13.7 % (11.8-14.1); RDW-SD 47.0 fL; WBC 8.04 10^3/uL (4.4-10.8)
[2024-12-08 07:24] LABS: Vancomycin, Random 35.5 ug/mL
[2024-12-08 07:27] LABS: ALT 60 U/L (16-63); AST 44 U/L (15-37); Albumin 1.7 g/dL (3.4-5.0); Alkaline Phosphatase 61 U/L (46-116); Anion Gap 7.8 mmol/L (3-11); BUN 10 mg/dL (7-18); Bilirubin, Total 0.2 mg/dL (0.2-1.0); CO2 25.2 mmol/L (21.0-32.0); Calcium 8.1 mg/dL (8.5-10.1); Chloride 106 mmol/L (98-107); Estimated GFR 94.78 (mL/min/1.73m2); Glucose 106 mg/dL (74-106); Magnesium 2.0 mg/dL (1.8-2.4); Potassium 3.3 mmol/L (3.5-5.1); Sodium 139 mmol/L (136-145); Total Protein 6.0 g/dL (6.4-8.2)
[2024-12-08] MEDS: Furosemide 20 MG TAB PO (08:11)
[2024-12-08] MEDS: Tamsulosin 0.4 MG CAPCR PO (08:12)
[2024-12-08] MEDS: Apixaban 5 MG TAB PO ×2 (08:12→21:18)
[2024-12-08] MEDS: Carvedilol 6.25 MG TAB PO ×2 (08:13→21:18)
[2024-12-08 08:19] VITALS: BP 120/57; PULSE 87; RESP 16; TEMP 36.5; O2SAT 96
[2024-12-08] MEDS: Normal Saline Flush 10 ML SYR IVP ×3 (08:24→21:19)
--- NOTE | 2024-12-08 09:56 | PDOC.CMPRO ---
Date of service: 12/08/24 Time of Service: 09:56 Care Management Progress Note Progress Note Text Progress Note Text: Marcin was sitting up in bed when CM met with him. He apologized to CM for being a little grumpy. He stated that he is at that point where everything is annoying him. His bed is too hard, his bottom hurts, his water isn't the right temperature etc, then he laughed. Marcin shared that he believes he will likely go home over the weekend. CM informed him that he has a follow up appointment at [facility] on 12/14/24 at 9 am. It is important that he keep the appointment as it is necessary for his continued home health certification. Discharge Potential Discharge Needs: PCP F/U Appt Anticipated Barriers to Discharge: None Identified Patient/Family Education Needs: Review discharge instructions, discuss Ask Me Three Transportation: Private vehicle Plan: Anticipate Marcin will be discharged home with a resumption of home health services for nursing, with the addition of OT, when medically cleared. He will follow up with his community providers and plan of care and transport via [facility]. CM will follow and continue to support discharge planning efforts. Social Determinants of Health Screening Will the Patient Participate in the Screening?: Declined to provide Do you worry about having a steady place to live?: choose not to answer
[2024-12-08 12:13] VITALS: BP 136/68; PULSE 82; RESP 16; TEMP 36.9; O2SAT 96
--- NOTE | 2024-12-08 12:56 | NUR.NOTE ---
Nursing Note: Documentation by Shawna Womack, ANTONIO student reviewed.
[2024-12-08 13:38] LABS: Vancomycin, Trough 20.0 ug/mL (10.0-20.0)
[2024-12-08] MEDS: VANCOMYCIN/WATER (PEG) 1.25 GM/250 ML BAG IVPB (16:36)
--- NOTE | 2024-12-08 16:48 | PGE_ITS ---
Date of Service Date of service: 12/08/24 Time of Service: 16:49 Assessment and Plan Assessment and plan (1) Sepsis: Start date: 12/04/24 Status: Acute Assessment and plan: -Patient met sepsis criteria with elevated white blood cell count, fever and likely source of infection being cellulitis of the right lower extremity and maggots in the wounds of the left lower extremity - No signs of endorgan damage - Was started on vancomycin and cefepime which will be continued - Follow-up blood culture results -apprecaite Podiatry involvement, awaiting final recs for possible debridement 12/07/24 no surgical intervention necessary at this point (2) Cellulitis of right lower leg: Start date: 12/04/24 Status: Acute Assessment and plan: - Likely source of infection as noted above 12/07/24 on cefepime/vanc (3) Hypomagnesemia: Start date: 12/04/24 Status: Acute Assessment and plan: - Replaced (4) Obesity, morbid, BMI 40.0-49.9: Status: Chronic Assessment and plan: - Ongoing weight loss discussions with PCP recommended (5) Lymphedema: Status: Chronic Assessment and plan: - Continue wrapping as outpatient (6) Atrial fibrillation: Assessment and plan: -Slightly tachycardic upon admission with sepsis usually controlled. -On carvedilol and Eliquis which will be continued. (7) Hypertension: Assessment and plan: -Continue home medications. (8) Obstructive sleep apnea: Assessment and plan: -Patient states that this has been corrected by surgical intervention on his palate. -does not wear CPAP or BiPAP. (9) Right heart failure due to pulmonary hypertension: Status: Chronic Assessment and plan: -Morbid obesity with lymphedema and on chronic Lasix for edema. -Last echocardiogram on 03/31/2019 revealed increased PA pressures with normal left ventricular ejection fraction. -lasix restarted Subjective Subjective Interval history since last seen: no new complaints Exam Narrative Exam Narrative: no respiratory distress ncat mmm no oral candidiasis BLE wrapped with bandages Objective Last Vital Signs Temp 36.9 C 12/08/24 12:13 Pulse 82 12/08/24 12:13 Resp 16 12/08/24 12:13 BP 136/68 12/08/24 12:13 Pulse Ox 96 12/08/24 12:13 Laboratory Results - last 24 hr 12/08/24 12/08/24 06:06 12:41 WBC 8.04 RBC 3.25 L Hgb 9.6 L Hct 30.2 L MCV 93 MCH 29.5 MCHC 31.8 L RDW 13.7 Plt Count 240 MPV 8.3 Immature Gran % 1.9 Neutrophils % 69.6 Lymphocytes % 14.9 Monocytes % 11.1 Eosinophils % 2.1 Basophils % 0.4 Nucleated RBC % 0.0 Absolute Neutrophils 5.60 Absolute Lymphocytes 1.20 Absolute Monocytes 0.89 H Absolute Eosinophils 0.17 Absolute Basophils 0.03 Sodium 139 Potassium 3.3 L Chloride 106 Carbon Dioxide 25.2 Anion Gap 7.8 BUN 10 Creatinine 0.9 Est GFR (CKD-EPI 2020) 94.78 Glucose 106 Calcium 8.1 L Magnesium 2.0 Total Bilirubin 0.2 AST 44 H ALT 60 Alkaline Phosphatase 61 Total Protein 6.0 L Albumin 1.7 L Vancomycin Trough 20.0 Random Vancomycin 35.5 PAWSS Have you Been Recently Intoxicated or Drunk Within the Last 30 days?: No Have you Ever Experienced Previous Episodes of Alcohol Withdrawal?: No Have you ever Experienced Withdrawal Seizures?: No Have you ever Experienced Delirium Tremens(DT)s?: No Have you ever undergone Alcohol Rehabilitation Treatment (i.e, inpt ot outpatient treatment programs)?: No Have you ever Experienced Blackouts?: No Have you ever Combined Alcohol with other Downers within the last 90 days?: No Have you ever Combined Alcohol with any other Substance of Abuse during the last 90 days?: No Positive Blood Alcohol level on Presentation? [PCS.BAL]: No Evidence of Increased Autonomic Activity (i.e. HR>120, tremor, sweating, agitation, nausea)?: No Result: 0 Time Spent with Patient Time Spent with Patient: <25 minutes Time was spent: preparing to see the patient(eg.review tests), obtaining and/or reviewing separately otained hiistory, ordering medications,tests, procedures, referring, communicating with other health client care specialist, indepentently interpreting results, counseling the patient and care coordination
[2024-12-08 21:02] VITALS: BP 142/65; PULSE 90; RESP 22; TEMP 37.4; O2SAT 97
[2024-12-08] MEDS: Doxazosin 1 MG TAB 2 MG PO (21:18)
[2024-12-08 22:54] VITALS: BP 125/62; PULSE 84; RESP 22; TEMP 37.2; O2SAT 95
[2024-12-09] MEDS: CEFEPIME 2 GM in Normal Saline 100 ML IVPB ×3 (00:10→15:00)
[2024-12-09] MEDS: HYDROmorphone 2 MG/ML SYR 1 MG IVP ×4 (03:04→22:37)
[2024-12-09] MEDS: Normal Saline Flush 10 ML SYR IVP ×5 (03:05→22:37)
[2024-12-09] MEDS: VANCOMYCIN/WATER (PEG) 1.25 GM/250 ML BAG IVPB ×2 (04:10→16:46)
[2024-12-09 04:14] VITALS: BP 141/71; PULSE 96; RESP 22; TEMP 36.8; O2SAT 96
[2024-12-09] MEDS: Acetaminophen 325 MG TAB 650 MG PO (07:10)
[2024-12-09 08:09] VITALS: BP 123/65; PULSE 90; RESP 17; TEMP 37; O2SAT 97
[2024-12-09] MEDS: Carvedilol 6.25 MG TAB PO ×2 (09:01→21:01)
[2024-12-09] MEDS: Apixaban 5 MG TAB PO ×2 (09:02→21:01)
[2024-12-09] MEDS: Tamsulosin 0.4 MG CAPCR PO (09:02)
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
[2024-12-09] MEDS: Polyethylene Glycol 3350 17 GM PACKET PO (11:17)
[2024-12-09] MEDS: traMADol 50 MG TAB 25 MG PO (11:17)
[2024-12-09 11:37] VITALS: BP 124/54; PULSE 88; RESP 17; TEMP 37; O2SAT 92
--- NOTE | 2024-12-09 15:09 | W.PM.PROGNOT ---
Date of Service Date of service: 12/09/24 Time of Service: 15:09 Assessment and Plan Assessment and plan (1) Sepsis: Start date: 12/04/24 Status: Acute Assessment and plan: -Patient met sepsis criteria with elevated white blood cell count, fever and likely source of infection being cellulitis of the right lower extremity and maggots in the wounds of the left lower extremity - No signs of endorgan damage - Was started on vancomycin and cefepime which will be continued - Follow-up blood culture results -apprecaite Podiatry involvement, awaiting final recs for possible debridement 12/07/24 no surgical intervention necessary at this point Will switch to orals tomorrow and montior overnight in anticipation of dc on Wednesday (2) Cellulitis of right lower leg: Start date: 12/04/24 Status: Acute Assessment and plan: - Likely source of infection as noted above 12/07/24 on cefepime/vanc as above (3) Hypomagnesemia: Start date: 12/04/24 Status: Acute Assessment and plan: - Replaced (4) Obesity, morbid, BMI 40.0-49.9: Status: Chronic Assessment and plan: - Ongoing weight loss discussions with PCP recommended (5) Lymphedema: Status: Chronic Assessment and plan: - Continue wrapping as outpatient (6) Atrial fibrillation: Assessment and plan: -Slightly tachycardic upon admission with sepsis usually controlled. -On carvedilol and Eliquis which will be continued. (7) Hypertension: Assessment and plan: -Continue home medications. (8) Obstructive sleep apnea: Assessment and plan: -Patient states that this has been corrected by surgical intervention on his palate. -does not wear CPAP or BiPAP. (9) Right heart failure due to pulmonary hypertension: Status: Chronic Assessment and plan: -Morbid obesity with lymphedema and on chronic Lasix for edema. -Last echocardiogram on 03/31/2019 revealed increased PA pressures with normal left ventricular ejection fraction. -lasix restarted (10) Hypokalemia: Status: Acute Assessment and plan: replace with KCL 40mg po bid (11) Anemia: Status: Chronic Subjective Subjective Interval history since last seen: pt still with RLE pain and no help at home through the weekend Exam Narrative Exam Narrative: heent-ncat mmm neck-no lad no jvd cv-rrr no mrg lungs-ctab BLE-significant erythema and venous stasis change bilat Objective Last Vital Signs Temp 37.0 C 12/09/24 11:37 Pulse 88 12/09/24 11:37 Resp 17 12/09/24 11:37 BP 124/54 L 12/09/24 11:37 Pulse Ox 92 12/09/24 11:37 PAWSS Have you Been Recently Intoxicated or Drunk Within the Last 30 days?: No Have you Ever Experienced Previous Episodes of Alcohol Withdrawal?: No Have you ever Experienced Withdrawal Seizures?: No Have you ever Experienced Delirium Tremens(DT)s?: No Have you ever undergone Alcohol Rehabilitation Treatment (i.e, inpt ot outpatient treatment programs)?: No Have you ever Experienced Blackouts?: No Have you ever Combined Alcohol with other Downers within the last 90 days?: No Have you ever Combined Alcohol with any other Substance of Abuse during the last 90 days?: No Positive Blood Alcohol level on Presentation? [PCS.BAL]: No Evidence of Increased Autonomic Activity (i.e. HR>120, tremor, sweating, agitation, nausea)?: No Result: 0 Time Spent with Patient Time Spent with Patient: 25-34 minutes Time was spent: preparing to see the patient(eg.review tests), obtaining and/or reviewing separately otained hiistory, ordering medications,tests, procedures, referring, communicating with other health child caregiver private home, indepentently interpreting results, counseling the patient, care coordination and other
[2024-12-09 16:05] VITALS: BP 136/57; PULSE 75; RESP 17; TEMP 37.4; O2SAT 95
[2024-12-09 20:12] VITALS: BP 119/63; PULSE 85; RESP 16; TEMP 36.7; O2SAT 94
[2024-12-09] MEDS: Doxazosin 1 MG TAB 2 MG PO (21:01)
[2024-12-09] MEDS: Potassium Chloride 20 MEQ TABCR 40 MEQ PO (21:01)
[2024-12-09 22:35] VITALS: BP 125/62; PULSE 81; RESP 15; TEMP 37.2; O2SAT 96
[2024-12-10] MEDS: CEFEPIME 2 GM in Normal Saline 100 ML IVPB ×3 (00:20→14:18)
[2024-12-10] MEDS: Normal Saline Flush 10 ML SYR IVP ×6 (00:21→21:32)
[2024-12-10] MEDS: VANCOMYCIN/WATER (PEG) 1.25 GM/250 ML BAG IVPB ×2 (03:39→15:53)
[2024-12-10] MEDS: Acetaminophen 325 MG TAB 650 MG PO ×4 (03:39→21:27)
[2024-12-10 06:39] LABS: Abs Immature Grans 0.16 10^3/uL (0.0-0.06); HCT 31.5 % (40.0-50.0); HGB 10.0 g/dL (13.5-17.5); Immature Grans % 1.8 %; MCH 29.5 pg (27.0-33.0); MCHC 31.7 % (32.0-36.0); MCV 93 fL (80-95); MPV 8.2 fL (8.0-11.0); Platelet Count 266 10^3/uL (130-400); RBC 3.39 10^6/uL (4.36-5.78); RDW 14.1 % (11.8-14.1); RDW-SD 48.1 fL; WBC 8.70 10^3/uL (4.4-10.8)
[2024-12-10 07:15] LABS: ALT 72 U/L (16-63); AST 37 U/L (15-37); Albumin 1.8 g/dL (3.4-5.0); Alkaline Phosphatase 65 U/L (46-116); Anion Gap 5.8 mmol/L (3-11); BUN 8 mg/dL (7-18); Bilirubin, Total 0.2 mg/dL (0.2-1.0); CO2 29.2 mmol/L (21.0-32.0); Calcium 8.3 mg/dL (8.5-10.1); Chloride 107 mmol/L (98-107); Estimated GFR 94.78 (mL/min/1.73m2); Glucose 109 mg/dL (74-106); Potassium 3.6 mmol/L (3.5-5.1); Sodium 142 mmol/L (136-145); Total Protein 6.4 g/dL (6.4-8.2)
[2024-12-10 07:30] VITALS: BP 138/66; PULSE 87; RESP 18; TEMP 36.8; O2SAT 96
[2024-12-10] MEDS: Potassium Chloride 20 MEQ TABCR 40 MEQ PO ×2 (08:17→21:26)
[2024-12-10] MEDS: Tamsulosin 0.4 MG CAPCR PO (08:17)
[2024-12-10] MEDS: Carvedilol 6.25 MG TAB PO ×2 (08:18→21:27)
[2024-12-10] MEDS: Apixaban 5 MG TAB PO ×2 (08:18→21:27)
[2024-12-10] MEDS: HYDROmorphone 2 MG/ML SYR 1 MG IVP (08:55)
[2024-12-10 11:13] VITALS: BP 142/63; PULSE 83; RESP 20; TEMP 36.6; O2SAT 95
[2024-12-10] MEDS: Polyethylene Glycol 3350 17 GM PACKET PO (12:14)
[2024-12-10] MEDS: oxyCODONE 10 MG TAB PO ×2 (12:14→21:48)
--- NOTE | 2024-12-10 13:12 | PTTR_ITS ---
Date of service: 12/10/24 Time of Service: 11:28 PT Notes Visit Reasons: Sepsis, Cellulitis SUBJECTIVE: OBJECTIVE:? Patient seen for therapy 11:28 to 12:02 as below. Spent [id number] touching base with patient. Reported he just received IV diulotid and felt dizzy and could not participate in therapy. Spent 1303 to 1310 with patient who reported he had returned to bed after toileting and refused to walk again. During this time, we discussed the option of a 4 wheeled walker for outside vs a wheeled walker for his apartment. He is concerned about space in his apartment. Recommended he walk to the bathroom for toileting this afternoon instead of using the urinal. Recommended he continue to ask for assist. Spoke with case management about assist at home for laundry, cleaning, taking out the trash, groceries, ? walker for home, ? lift assist to enter his home via 16 steps. Treatment: Supine to sit with head of bed elevated with rails with therapist providing mod assist for trunk. Was able to move his LE to the edge of bed without assist. Reports he normally sleeps in a recliner so he will not need to perform bed mobility. sit to stand with very wide base of support with hands on walker, despite cuing. Iniitally requested assist to stand, but able to perform with CGA only. Amb 15 feet with rolling walker with wide base of support, holding right LE in ER and keeping it posteriorly during ambulation. Patient reports he was able to get up from the toilet without assist from EDITORIAL PROJECT MANAGER after toileting. Patient not sure about walker for home. Has been discussing the 4 wheeled walker with the [facility]. Assessment: Patient is a? 64 yo male adm on 12/04/24 for sepsis, cellulitis right LE, hypomagnesemia, obesity, lymphedema, afib, hypertension, LIANNE and Right heart failure due to pulmonary hypertension. May benefit from a walker for home and/or lift assist to reach his apartment (up 16 steps) and increased assist at home as described above. Plan: Continue PT. Billing Charges: Treatment Units Time Duration Manual Therapy (81312) Hands-on techniques to modulate pain increase joint range of motion reduce or eliminate soft tissue swelling, inflammation, or restriction facilitate relaxation and improve contractile and non-contractile tissue extensibility Therapeutic Procedures (94999) Instruction in therapeutic exercises to develop strength and endurance, range of motion and flexibility. HEP instruction and review: Provided skilled instruction in proper exercise performance: Provided skilled manual cues to facilitate proper muscle recruitment and/or movement?pattern: Neurological Re-Education (87300) to improve balance, coordination, kinesthetic and proprioceptive sensations. Ultrasound (57295) to promote healing Gait Training (08353) Therapeutic Activity (58207) instruction in dynamic activitie s with one on one patient contact by the provider to improve functional performance as follows: 2 34 Self Care Training (41912) Time Coded Treatment Minutes: 34 Total Treatment Time: 34
[2024-12-10 15:51] VITALS: BP 115/51; PULSE 65; RESP 18; TEMP 36.8; O2SAT 96
--- NOTE | 2024-12-10 16:40 | W.PM.PROGNOT ---
Date of Service Date of service: 12/10/24 Time of Service: 16:40 Assessment and Plan Assessment and plan (1) Sepsis: Start date: 12/04/24 Status: Acute Assessment and plan: -Patient met sepsis criteria with elevated white blood cell count, fever and likely source of infection being cellulitis of the right lower extremity and maggots in the wounds of the left lower extremity - No signs of endorgan damage - Was started on vancomycin and cefepime which will be continued - Follow-up blood culture results -apprecaite Podiatry involvement, awaiting final recs for possible debridement 12/07/24 no surgical intervention necessary at this point Will switch to orals tomorrow and montior overnight in anticipation of dc on Wednesday12/10/24 changed to bactrim (2) Cellulitis of right lower leg: Start date: 12/04/24 Status: Acute Assessment and plan: - Likely source of infection as noted above 12/07/24 on cefepime/vanc as above (3) Hypomagnesemia: Start date: 12/04/24 Status: Acute Assessment and plan: - Replaced (4) Obesity, morbid, BMI 40.0-49.9: Status: Chronic Assessment and plan: - Ongoing weight loss discussions with PCP recommended (5) Lymphedema: Status: Chronic Assessment and plan: - Continue wrapping as outpatient (6) Atrial fibrillation: Assessment and plan: -Slightly tachycardic upon admission with sepsis usually controlled. -On carvedilol and Eliquis which will be continued. (7) Hypertension: Assessment and plan: -Continue home medications. (8) Obstructive sleep apnea: Assessment and plan: -Patient states that this has been corrected by surgical intervention on his palate. -does not wear CPAP or BiPAP. (9) Right heart failure due to pulmonary hypertension: Status: Chronic Assessment and plan: -Morbid obesity with lymphedema and on chronic Lasix for edema. -Last echocardiogram on 03/31/2019 revealed increased PA pressures with normal left ventricular ejection fraction. -lasix restarted (10) Hypokalemia: Status: Acute Assessment and plan: replace with KCL 40mg po bid (11) Anemia: Status: Chronic Subjective Subjective Interval history since last seen: no new complaints. Ready for dc tomorrow Exam Narrative Exam Narrative: heent-ncat mmm neck-no lad no jvd cv-rrr no mrg lungs-ctab BLE-significant erythema and venous stasis change bilat Objective Last Vital Signs Temp 36.8 C 12/10/24 15:51 Pulse 65 12/10/24 15:51 Resp 18 12/10/24 15:51 BP 115/51 L 12/10/24 15:51 Pulse Ox 96 12/10/24 15:51 Laboratory Results - last 24 hr 12/10/24 06:09 WBC 8.70 RBC 3.39 L Hgb 10.0 L Hct 31.5 L MCV 93 MCH 29.5 MCHC 31.7 L RDW 14.1 Plt Count 266 MPV 8.2 Immature Gran % 1.8 Neutrophils % 70.6 Lymphocytes % 15.9 Monocytes % 9.0 Eosinophils % 2.1 Basophils % 0.6 Nucleated RBC % 0.0 Absolute Neutrophils 6.15 Absolute Lymphocytes 1.38 Absolute Monocytes 0.78 Absolute Eosinophils 0.18 Absolute Basophils 0.05 Sodium 142 Potassium 3.6 Chloride 107 Carbon Dioxide 29.2 Anion Gap 5.8 BUN 8 Creatinine 0.9 Est GFR (CKD-EPI 2020) 94.78 Glucose 109 H Calcium 8.3 L Total Bilirubin 0.2 AST 37 ALT 72 H Alkaline Phosphatase 65 Total Protein 6.4 Albumin 1.8 L PAWSS Have you Been Recently Intoxicated or Drunk Within the Last 30 days?: No Have you Ever Experienced Previous Episodes of Alcohol Withdrawal?: No Have you ever Experienced Withdrawal Seizures?: No Have you ever Experienced Delirium Tremens(DT)s?: No Have you ever undergone Alcohol Rehabilitation Treatment (i.e, inpt ot outpatient treatment programs)?: No Have you ever Experienced Blackouts?: No Have you ever Combined Alcohol with other Downers within the last 90 days?: No Have you ever Combined Alcohol with any other Substance of Abuse during the last 90 days?: No Positive Blood Alcohol level on Presentation? [PCS.BAL]: No Evidence of Increased Autonomic Activity (i.e. HR>120, tremor, sweating, agitation, nausea)?: No Result: 0 Time Spent with Patient Time Spent with Patient: <25 minutes Time was spent: preparing to see the patient(eg.review tests), obtaining and/or reviewing separately otained hiistory, ordering medications,tests, procedures, referring, communicating with other health home health care case manager, indepentently interpreting results, counseling the patient and care coordination
[2024-12-10] MEDS: Doxazosin 1 MG TAB 2 MG PO (21:26)
[2024-12-10] MEDS: Sulfameth/Trimeth DS TAB 1 TAB PO (21:27)
[2024-12-10] MEDS: traMADol 50 MG TAB 25 MG PO (21:28)
[2024-12-10 23:19] VITALS: BP 113/50; PULSE 80; RESP 15; TEMP 36.6; O2SAT 95
[2024-12-11 03:00] VITALS: BP 118/72; PULSE 75; RESP 15; TEMP 36.6; O2SAT 97
[2024-12-11 06:53] LABS: Abs Immature Grans 0.16 10^3/uL (0.0-0.06); HCT 31.6 % (40.0-50.0); HGB 9.7 g/dL (13.5-17.5); Immature Grans % 1.8 %; MCH 28.9 pg (27.0-33.0); MCHC 30.7 % (32.0-36.0); MCV 94 fL (80-95); MPV 8.0 fL (8.0-11.0); Platelet Count 262 10^3/uL (130-400); RBC 3.36 10^6/uL (4.36-5.78); RDW 14.1 % (11.8-14.1); RDW-SD 48.2 fL; WBC 8.89 10^3/uL (4.4-10.8)
[2024-12-11 07:13] LABS: ALT 63 U/L (16-63); AST 29 U/L (15-37); Albumin 1.9 g/dL (3.4-5.0); Alkaline Phosphatase 67 U/L (46-116); Anion Gap 4.0 mmol/L (3-11); BUN 8 mg/dL (7-18); Bilirubin, Total 0.2 mg/dL (0.2-1.0); CO2 31.0 mmol/L (21.0-32.0); Calcium 8.9 mg/dL (8.5-10.1); Chloride 107 mmol/L (98-107); Estimated GFR 94.78 (mL/min/1.73m2); Glucose 102 mg/dL (74-106); Potassium 3.6 mmol/L (3.5-5.1); Sodium 142 mmol/L (136-145); Total Protein 6.3 g/dL (6.4-8.2)
[2024-12-11 07:52] VITALS: BP 114/76; PULSE 78; RESP 16; TEMP 36.9; O2SAT 97
[2024-12-11] MEDS: Potassium Chloride 20 MEQ TABCR 40 MEQ PO (08:15)
[2024-12-11] MEDS: Carvedilol 6.25 MG TAB PO (08:18)
[2024-12-11] MEDS: Sulfameth/Trimeth DS TAB 1 TAB PO (08:18)
[2024-12-11] MEDS: Apixaban 5 MG TAB PO (08:18)
[2024-12-11] MEDS: Furosemide 20 MG TAB PO (08:18)
[2024-12-11] MEDS: Tamsulosin 0.4 MG CAPCR PO (08:18)
[2024-12-11] MEDS: Normal Saline Flush 10 ML SYR IVP (08:26)
[2024-12-11] MEDS: Acetaminophen 325 MG TAB 650 MG PO (08:29)
--- NOTE | 2024-12-11 09:10 | PDOC.CMPRO ---
Date of service: 12/11/24 Time of Service: 09:10 Care Management Progress Note Discharge Potential Discharge Needs: PCP F/U Appt Anticipated Barriers to Discharge: None Identified Patient/Family Education Needs: Review discharge instructions, discuss Ask Me Three Transportation: Private vehicle Plan: Anticipate Marcin will be discharged home with a resumption of home health services for nursing, with the addition of OT, when medically cleared. He will follow up with his community providers and plan of care and transport via [facility]. CM will follow and continue to support discharge planning efforts. Social Determinants of Health Screening Will the Patient Participate in the Screening?: Declined to provide Do you worry about having a steady place to live?: choose not to answer
--- NOTE | 2024-12-11 09:12 | PDOC.CMDIS ---
Date of service: 12/11/24 Time of Service: 09:12 LACE Index Scoring Tool Questions: Length of Stay (in days): 7 - 13 Was the patient admitted via the E.D.?: Yes Comorbidities: PVD, Congestive Heart Failure and Any Tumor E.D. Visits: 2 Answers: Total Score: 15 Risk of Readmission: High Risk Care Management Discharge Plan Reason for Hospitalization: cellulitis Discharge Plan: Marcin will be discharged home with a resumption of home health services for nursing, and new PT and OT. He will follow up with his community providers and plan of care and transport via [facility]. Patient/Family Education Needs: Review discharge instructions, limitations, follow up plan and discuss Ask Me Three Services Needed at Discharge: Home Health Care Services and Transportation
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
--- NOTE | 2024-12-11 13:38 | PDOC.HHF2F ---
Date of service: 12/11/24 Time of Service: 13:38 Home Health Referral Home Health Orders Clinical synopsis of why skilled professionals are needed: bilateral cellulitis and lymphedema Medical diagnosis necessitation home health referral: bilateral cellulitis and lymphedema Registered Nurse: Check all that apply Instruct on new or changed medication(s)/assess compliance: Ordered Assess for exacerbation of medical condition, instruct patient/caregivers on signs and symptoms to report for early detection: Ordered Physical Therapist: Check all that apply Increase strength & endurance for safe mobility at home: Ordered To design/establish home maintenance program: Ordered Fall reduction therapy program for patient with history of frequent falls: Ordered Home safety evaluation and teaching/gait training including stair management (if applicable): Ordered Heel Sander: Assist with community resources: Ordered Assist with intermission coordinator care planning: Ordered Home Bound Status Requires the aid of supportive device (check all that apply): Walker and Other (Lymphedema and wounds to legs) Encounter Date and Reason: I certify that a FTF encounter for this patient was performed on December 11, 2024 and that such encounter was related to the primary reason the patient requires home health services. The encounter was conducted in the following manner: By me as the certifying physician, MANUFACTURER'S SERVICE REPRESENTATIVE, PA or By an inpatient physician, MANUFACTURER'S SERVICE REPRESENTATIVE or PA during an inpatient stay who communicated findings to me, Certification And Authentication I certify that I composed the above information based on my clinical judgment relating to this patient's medical condition and, if applicable, clinical findings communicated to me by the NPP or inpatient physician who performed the FTF encounter. Name of Provider that will be monitoring home health services: Riccardo Oliveira
== END 2024-12-11 13:20 | disposition home health service (06) | DRG 872 ==
LOC: ER 19:05 → MS 21:01
PROVIDERS: Admitting Provider Family Medicine; Emergency Provider Emergency Medicine; PCP Student in an Organized Health Care Education/Training Program; Responsible Provider Hospitalist; Visit Provider Family Medicine
DX: A41.9 Sepsis, unspecified organism (principal); L03.115 Cellulitis of right lower limb; E83.42 Hypomagnesemia; E66.01 Morbid (severe) obesity due to excess calories; I89.0 Lymphedema, not elsewhere classified; I11.0 Hypertensive heart disease with heart failure; I27.29 Other secondary pulmonary hypertension; I50.810 Right heart failure, unspecified; G89.29 Other chronic pain; L97.821 Non-pressure chronic ulcer of other part of left lower leg limited to breakdown of skin; L97.811 Non-pressure chronic ulcer of other part of right lower leg limited to breakdown of skin; I87.311 Chronic venous hypertension (idiopathic) with ulcer of right lower extremity; I48.91 Unspecified atrial fibrillation; Z85.038 Personal history of other malignant neoplasm of large intestine; B87.0 Cutaneous myiasis; I87.322 Chronic venous hypertension (idiopathic) with inflammation of left lower extremity
CPT/HCPCS: 00123; 36415; 80053; 80307; 84145; 85027; 85652; 87040; 87637; 87641; 96365; 96366; 96367; 96368; 96375; 97161; 97530; 99222; 99233; 99285; 80202; 81003; 83605; 83735; 83880; 84443; 84484; 85025; 85610; 86140; 99223; 99231; 99238; J0692; J1171; J3373; J3475

== ENCOUNTER 2024-12-27 15:18 | Outpatient (REF) | payer MEDICARE, MEDICAID, SELFPAY ==
[2024-12-27 16:28] LABS: HCT 34.0 % (40.0-50.0); HGB 10.3 g/dL (13.5-17.5); MCH 29.1 pg (27.0-33.0); MCHC 30.3 % (32.0-36.0); MCV 96 fL (80-95); MPV 8.6 fL (8.0-11.0); Platelet Count 343 10^3/uL (130-400); RBC 3.54 10^6/uL (4.36-5.78); RDW 13.8 % (11.8-14.1); RDW-SD 48.6 fL; WBC 7.72 10^3/uL (4.4-10.8)
[2024-12-27 17:15] LABS: ALT 19 U/L (16-63); AST 9 U/L (15-37); Albumin 2.9 g/dL (3.4-5.0); Alkaline Phosphatase 71 U/L (46-116); Anion Gap 10.6 mmol/L (3-11); BUN 7 mg/dL (7-18); Bilirubin, Total 0.3 mg/dL (0.2-1.0); CO2 29.4 mmol/L (21.0-32.0); Calcium 8.3 mg/dL (8.5-10.1); Chloride 104 mmol/L (98-107); Estimated GFR 83.52 (mL/min/1.73m2); Glucose 85 mg/dL (74-106); Potassium 3.9 mmol/L (3.5-5.1); Sodium 144 mmol/L (136-145); Total Protein 6.9 g/dL (6.4-8.2)
[2024-12-28 10:08] LABS: Iron 44 ug/dL (65-175); Total Iron Binding Capacity 204 ug/dL (250-450)
[2024-12-28 10:35] LABS: Ferritin 272 ng/mL (26-388); Vitamin B12 350 pg/mL (193-986)
[2024-12-28 18:35] LABS: Folate 9.8 ng/mL (See Note)
== END 2024-12-27 15:19 | disposition home or self-care (01) ==
LOC: NCHCN 15:18
PROVIDERS: PCP Student in an Organized Health Care Education/Training Program
DX: L03.90 Cellulitis, unspecified (principal); I11.0 Hypertensive heart disease with heart failure; D64.9 Anemia, unspecified
CPT/HCPCS: 80053; 85027; 82607; 82728; 82746; 83540; 83550

== ENCOUNTER 2025-01-31 16:57 | Outpatient (REF) | payer MEDICARE, MEDICAID, SELFPAY | END 2025-01-31 16:58 | disposition home or self-care (01) | LOC: NCHCN 16:57 | PROVIDERS: PCP Student in an Organized Health Care Education/Training Program; Visit Provider Family Medicine | DX: L03.115 Cellulitis of right lower limb (principal) | CPT/HCPCS: 87070; 87205 ==